=== PATIENT | female | born 1935 | race Caucasian/White ===

== ENCOUNTER 2017-07-20 17:07 | Inpatient (IN) ==
[2017-07-20 17:54] LABS: Basophils % 0.3 %; Eosinophils # 0.1 K/mcL (0.0-0.6); Hematocrit 44.8 % (35.3-44.9); Hemoglobin 14.9 g/dL (11.5-15.4); Immature Granulocytes % 0.4 % (0-4); Immature Platelets 4.3 % (1.1-6.1); Lymphocytes % 17.3 %; Mean Corpuscular HGB Conc 33.3 g/dL (31.6-35.5); Mean Corpuscular Hemoglobin 28.9 pg (28.0-33.3); Mean Corpuscular Volume 86.8 fL (83.0-100.0); Mean Platelet Volume 10.7 fL (9.4-12.4); Monocytes # 1.1 K/mcL (0.0-1.3); Monocytes % 9.2 %; Neutrophils # 8.3 K/mcL (1.6-8.9); Platelet Count 150 K/mcL (140-400); Red Blood Count 5.16 M/mcL (3.82-4.97); Red Cell Distribution Width 12.7 % (11.5-14.5); Segmented Neutrophils % 71.8 %
[2017-07-20 18:06] LABS: Calcium 10.8 mg/dL (8.6-10.8); Potassium 4.1 mEq/L (3.5-4.5)
[2017-07-20] MEDS ORDERED: Furosemide 40 MG/4 ML VIAL IVP ONE (19:05)
--- NOTE | 2017-07-20 19:24 | Emergency Department Note ---
Disposition Clinical Impression: Shortness of breath at rest Acute exacerbation of CHF (congestive heart failure) Qualifiers: Congestive heart failure type: unspecified congestive heart failure type Qualified Code(s): I50.9 - Heart failure, unspecified Disposition: Admitted As Inpatient Condition: Fair Time of Disposition: 20:48 SOB HPI - General Chief Complaint: ED Shortness of Breath/Dyspnea Stated Complaint: SOB Time Seen by Provider: 07/20/17 17:55 Source: patient, family Limitations: no limitations Nursing Notes Reviewed: Yes Vital Signs Reviewed: Yes - History of Present Illness Patient is an 81-year-old female with a past medical history of hypertension, diabetes, CHF, and AFib who presents with shortness of breath that has progressively worsening over 3 days. The patient states that her shortness of breath is worse with exertion but improves with rest. She denies being on any oxygen at home. She admits that she is currently on Xarelto for her Afib and HCTZ for her CHF. The patient states that she had a pneumonia 1 month ago and was treated with antibiotics. She states that her repeat chest x-ray 1 week ago showed that her pneumonia was improving per her primary care physician. The patient admits that she has a productive cough for approximately one month but denies any fever, hemoptysis, nausea and vomiting. The patient denies any headache, vision changes, chest pain, difficulty breathing, abdominal pain, constipation, diarrhea, blood in her stool, blood in her urine, difficulty urinating, dysuria, numbness and tingling, weaknesses, or any focal neurological deficits. - Related Data Home Medications Medication Instructions Recorded Confirmed ALPRAZolam [Xanax 0.5 MG Tablet] 0.5 mg PO BID PRN 07/24/16 07/20/17 Amlodipine Besylate [Amlodipine 2.5 mg PO BID 07/24/16 07/20/17 Besylate] Brimonidine 0.2% [Alphagan] 1 drop BOTH EYES BID 07/24/16 07/20/17 Calcium Carbonate [Calcium] 600 mg PO BID 07/24/16 07/20/17 Denosumab [Prolia (For Outpatient 60 mg SQ [id number] 07/24/16 07/20/17 Infusion)] Lisinopril [Zestril] 40 mg PO DAILY 07/24/16 07/20/17 Multivit-Min/FA/Lycopen/Lutein 1 each PO DAILY 07/24/16 07/20/17 [Adults 50+ Multivitamin Tablet] Omeprazole 20 mg PO DAILY PRN 07/24/16 07/20/17 Potassium Chloride [Klor-Con] 20 meq PO DAILY 07/24/16 07/20/17 Rivaroxaban [Xarelto] 20 mg PO QPM 07/24/16 07/20/17 hydroCHLOROthiazide 25 mg PO DAILY 07/24/16 07/20/17 [Hydrochlorothiazide] Diltiazem HCl [Diltiazem 12Hr ER] 120 mg PO BID 07/20/17 07/20/17 Dorzolamide/Timolol [Cosopt] 1 drop OP BID 07/20/17 07/20/17 Latanoprost [Xalatan] 1 drop OP HS 07/20/17 07/20/17 Promethazine/Phenyleph/Codeine 5 ml PO Q6H PRN 07/20/17 07/20/17 [Promethazine Vc-Codeine Syrup] Simvastatin [Zocor] 10 mg PO HS 07/20/17 07/20/17 Allergies Allergy/AdvReac Type Severity Reaction Status Date / Time aspartame AdvReac Migraine Verified 07/20/17 19:44 Review of Systems: Constitutional: No fever or weight changes. Vision: No blurred vision ENT: No rhinorrhea Respiratory: Progressive worsening of SOB for the past three days that is worse with exertion and improves with rest. Admits productive cough with yellow and clear sputum. Allergic: No allergies : No blood in urine GI: No blood in stool Hematologic: No bruising Dermatologic: No skin rash Musculoskeletal: No pain in the extremities Neuro: No numbness of the extremities All systems ED: reviewed and negative except as stated. Review of Systems: As Per HPI Past Medical History - Past Medical History Medical history: Reports: atrial fibrillation, cancer, diabetes, hyperlipidemia , hypertension Surgical history: Reports: pacemaker/AICD Psychiatric history: Reports: no psych history - Social History Smoking Status: Never smoker Smokeless Tobacco Status: No Alcohol use: Reports: none Drug use: Reports: none Physical Exam CONSTITUTIONAL: Alert and oriented X3, well-nourished, well appearing, in no apparent distress HEAD: Normocephalic; atraumatic. EYES: PERRL, no scleral icterus. NOSE: The nose is normal in appearance without rhinorrhea RESP: Rales heard on bilateral lobes posteriorly. Conversational dyspnea with use of accessory muscles; Oxygen saturation on exam is 96% on room air. no wheezes or ronchi CARD: Regular rhythm, without murmurs, rub or gallop ABD: Non-distended; non-tender, soft,without rigidity, rebound or guarding. No hepatomegaly. No splenomegaly. No ecchymosis, bruises, or bleeding. SKIN: Normal for age and race; warm and dry; no apparent lesions EXTREMITIES: Lower extremities has trace edema bilaterally. Pulses are 2 plus and equal times 4 extremities, no calf muscle pain. NEUROLOGICAL: Patient is alert and oriented times three. Sensory and motor functions are intact. Strength is 5/5 for flexion and extension in all 4 extremities - General Limitations: no limitations General appearance: alert, anxious Course Vital Signs Temperature 97.5 F L 07/20/17 17:08 Pulse Rate 83 07/20/17 17:08 Respiratory Rate 22 07/20/17 17:08 Blood Pressure 174/80 07/20/17 17:08 O2 Sat by Pulse Oximetry 97 07/20/17 17:08 Temperature 97.7 F 07/20/17 21:56 Pulse Rate 79 07/20/17 21:56 Respiratory Rate 19 07/20/17 21:56 Blood Pressure 154/69 07/20/17 21:56 O2 Sat by Pulse Oximetry 96 07/20/17 21:56 Oxygen Delivery Oxygen Delivery Room Air Shortness of Breath/Dyspnea - [facility] Narrative Medical decision making narrative: Vitals are reviewed and are exceptionally normal. Blood pressure is elevated. Patient is afebrile and is satting at 96% on room air. She is having conversational dyspnea and physical exam show mild rales on her lower lobes bilaterally. LAbs and imaging are order to further evaluate CHF exacerbation vs pneumonia. Mildly elevated BNP, CXR results, and clinical exam leads me to believe she has an acute exacerbation of CHF. Will give 40 mg Lasix IV. Plan to admit the patient for observation. - Lab Data Lab results reviewed: Yes I reviewed the patient's lab results. Result diagrams: 07/20/17 17:46 07/20/17 17:46 Lab Results 07/20/17 07/20/17 07/20/17 Range/Units 17:46 17:46 17:46 WBC 11.6 H (4.3-11.1) K/mcL RBC 5.16 H (3.82-4.97) M/mcL Hgb 14.9 (11.5-15.4) g/dL Hct 44.8 (35.3-44.9) % MCV 86.8 (83.0-100.0) fL MCH 28.9 (28.0-33.3) pg MCHC 33.3 (31.6-35.5) g/dL RDW 12.7 (11.5-14.5) % Plt Count 150 (140-400) K/mcL MPV 10.7 (9.4-12.4) fL Immature Gran % 0.4 (0-4) % Seg Neutrophils % 71.8 % Lymphocytes % 17.3 % Monocytes % 9.2 % Eosinophils % 1.0 % Basophils % 0.3 % Neutrophils # 8.3 (1.6-8.9) K/mcL Lymphocytes # 2.0 (0.6-4.6) K/mcL Monocytes # 1.1 (0.0-1.3) K/mcL Eosinophils # 0.1 (0.0-0.6) K/mcL Basophils # 0.0 (0.0-0.2) K/mcL Immature Plt Fraction 4.3 (1.1-6.1) % Sodium 137 (136-145) mEq/L Potassium 4.1 (3.5-4.5) mEq/L Chloride 102 (98-109) mEq/L Carbon Dioxide 24 (19-29) mEq/L BUN 25 H (7-20) mg/dL Creatinine 1.07 (0.57-1.11) mg/dL Est GFR ( Amer) 60 (> 60) Est GFR (Non-Af Amer) 49 L (> 60) BUN/Creatinine Ratio 23 (6-26) Glucose 154 H (70-99) mg/dL Calculated Osmolality 291 (280-300) Lactic Acid 1.5 (0.5-2.2) mmol/L Calcium 10.8 (8.6-10.8) mg/dL Troponin I (0-0.03) ng/mL B-Natriuretic Peptide (0-100) pg/mL 07/20/17 07/20/17 Range/Units 17:46 17:46 WBC (4.3-11.1) K/mcL RBC (3.82-4.97) M/mcL Hgb (11.5-15.4) g/dL Hct (35.3-44.9) % MCV (83.0-100.0) fL MCH (28.0-33.3) pg MCHC (31.6-35.5) g/dL RDW (11.5-14.5) % Plt Count (140-400) K/mcL MPV (9.4-12.4) fL Immature Gran % (0-4) % Seg Neutrophils % % Lymphocytes % % Monocytes % % Eosinophils % % Basophils % % Neutrophils # (1.6-8.9) K/mcL Lymphocytes # (0.6-4.6) K/mcL Monocytes # (0.0-1.3) K/mcL Eosinophils # (0.0-0.6) K/mcL Basophils # (0.0-0.2) K/mcL Immature Plt Fraction (1.1-6.1) % Sodium (136-145) mEq/L Potassium (3.5-4.5) mEq/L Chloride (98-109) mEq/L Carbon Dioxide (19-29) mEq/L BUN (7-20) mg/dL Creatinine (0.57-1.11) mg/dL Est GFR ( Amer) (> 60) Est GFR (Non-Af Amer) (> 60) BUN/Creatinine Ratio (6-26) Glucose (70-99) mg/dL Calculated Osmolality (280-300) Lactic Acid (0.5-2.2) mmol/L Calcium (8.6-10.8) mg/dL Troponin I 0.01 (0-0.03) ng/mL B-Natriuretic Peptide 121 H (0-100) pg/mL - Radiology Data Radiology results reviewed: Yes I reviewed the patient's radiology results. Chest X-Ray 07/20/17 17:13 IMPRESSION: Findings suggest congestive heart failure D/ / Alexandro Lauren MD / Alexandro Lauren MD Interpreting Provider: Alexandro Lauren MD - EKG Data EKG attestation: Yes I reviewed and interpreted this EKG. EKG results narrative: EKG shows electronic ventricle pacemaker with a rate of 80 beats per minute, QRS duration at 139, QT at 410, QTC at 445.No acute ischemic changes noted on the EKG today. No significant changes on EKG compared to the old EKG dated on . Attestation Statement - Attestation Attestation: I examined this patient and my medical decision-making was reviewed with the Resident Physician. I agree with the documented findings, disposition and treatment plan as described except to the extent set forth below. Patient with classic history for gradually worsening heart failure. Chest x- ray looks similar to previous, slightly worse. BNP near baseline. Agree with Dr. Mehta's plan for diuresis and admission.
[2017-07-20] MEDS ORDERED: Naloxone 0.4 MG/ML INJ IVP PRN (21:59)
--- NOTE | 2017-07-20 22:11 | Internal Med History&Physical ---
<Fe Hernández - Last Filed: 07/20/17 23:23> Date of Encounter: 07/20/17 Time of Encounter: 22:11 Assessment and Plan (1) Acute exacerbation of CHF (congestive heart failure) Current visit: Yes Status: Acute 1 past echo 03/29/16 EF 45% has been on HCTZ, 2-3 days of SOB weakness Xray suggestive of CHF Will give lasix 20 mg IVP daily 2 daily weight I/O 3 fluid restriction 1500 ml 4 Patient has had a cough over the past few days with increased phlegm production- treated for pneumonia 1 month ago-we will obtain CT chest pending results -we will initiate on azithromycin and Rocephin- Qualifiers: Congestive heart failure type: unspecified congestive heart failure type Qualified Code(s): I50.9 - Heart failure, unspecified (2) Diabetes mellitus Current visit: No Status: Chronic Accu-Cheks before meals at bedtime for sinus scale insulin Diabetic diet Qualifiers: Diabetes mellitus type: type 2 Diabetes mellitus complication status: without complication 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 She is on Xarelto which we will hold for now for report of Qualifiers: Atrial fibrillation type: chronic Qualified Code(s): I48.2 - Chronic atrial fibrillation (5) Hemoptysis Current visit: Yes Status: Acute Reports episodes of hemoptysis over the past 2 days. Patient did have an episode of a quarter size unchanged sputum in the ER. She is on Cymbalta which we will hold for now. Monitor- We will obtain CT chest (6) DVT prophylaxis Current visit: No Status: Acute Patient was on Cymbalta which we will hold for now due to hemoptysis place SCDs Internal Medicine - H&P: HPI Chief complaint: dyspnea Admitted From: Emergency Dept Plans for Post Hospital Care: Home History of present illness: Ms. Avina is a 81 year old female past history of hypertension diabetes to chest A. fib pacemaker placement. Patient has been smoking increasing shortness of breath over the past 3 days she has been experiencing weakness shortness of breath upon exertion and improves with rest. She is not on any oxygen therapy at home and does not use any bronchodilators. She did have pneumonia approximately 1 month ago was treated with antibiotics and actually had improved up until approximately a few days ago. She denies any fevers chills nausea vomiting chest pain or abdominal pain. She has had a productive cough with blood-tinged sputum. The daughter states that her SPO2 has been ranging around 9394% at rest and drops down into the upper 80s on exertion. She presented to the ER with the above complaints. Not work in the ER was unremarkable BNP was 121 chest x-ray suggestive of CHF She did have approximately quarter size bloodstained phlegm while in the ER. She was given 40 mg IV Lasix and admitted for further evaluation. Presently the patient does not appear to be in respiratory distress denies any chest pain she does have some fine crackles in her bases bilaterally she is hemodynamically stable at this time. I did review this case with Dr. Craven who agrees with plan. Past Med Surg Social Fam HX - Past Medical History Medical history: atrial fibrillation, cancer, diabetes, hyperlipidemia, hypertension Psychiatric history: no psych history - Past Surgical History Surgical History: pacemaker/AICD - Social History Smoking Status: Never smoker Smokeless Tobacco Status: No Alcohol use: none Drug use: none - Family History Father Living Status: Age at : 29 Cause of : Brain tumor Mother Living Status: Age at : 72 Cause of : Stroke, heart disease Internal Medicine - H&P: Meds ALPRAZolam [Xanax 0.5 MG Tablet] 0.5 mg PO BID PRN 07/24/16 [History] Amlodipine Besylate [Amlodipine Besylate] 2.5 mg PO BID 07/24/16 [History] Brimonidine 0.2% [Alphagan] 1 drop BOTH EYES BID 07/24/16 [History] Calcium Carbonate [Calcium] 600 mg PO BID 07/24/16 [History] Denosumab [Prolia (For Outpatient Infusion)] 60 mg SQ [id number] 07/24/16 [History ] Lisinopril [Zestril] 40 mg PO DAILY 07/24/16 [History] Multivit-Min/FA/Lycopen/Lutein [Adults 50+ Multivitamin Tablet] 1 each PO DAILY 07/24/16 [History] Omeprazole 20 mg PO DAILY PRN 07/24/16 [History] Potassium Chloride [Klor-Con] 20 meq PO DAILY 07/24/16 [History] Rivaroxaban [Xarelto] 20 mg PO QPM 07/24/16 [History] hydroCHLOROthiazide [Hydrochlorothiazide] 25 mg PO DAILY 07/24/16 [History] Diltiazem HCl [Diltiazem 12Hr ER] 120 mg PO BID 07/20/17 [History] Dorzolamide/Timolol [Cosopt] 1 drop OP BID 07/20/17 [History] Latanoprost [Xalatan] 1 drop OP HS 07/20/17 [History] Promethazine/Phenyleph/Codeine [Promethazine Vc-Codeine Syrup] 5 ml PO Q6H PRN 07/20/17 [History] Simvastatin [Zocor] 10 mg PO HS 07/20/17 [History] 3 Allergy/AdvReac Type Severity Reaction Status Date / Time aspartame AdvReac Migraine Verified 07/20/17 19:44 All Systems PM: A 10-system review of systems was performed and is negative for pertinent findings except as documented above in the HPI. - Constitutional Constitutional: no chills, no fever(s), no night sweats - EENT Eyes: no change in vision, no discharge, no pain, no photophobia Nose, mouth and throat: no dysphagia, no nasal discharge, no neck pain, no sore throat - Cardiovascular Cardiovascular ROS IM: dyspnea on exertion, no chest pain, no diaphoresis, no dyspnea, no lightheadedness, no palpitations, no syncope - Respiratory Respiratory: cough, dyspnea on exertion, change in phlegm color - Gastrointestinal Gastrointestinal: no abdominal pain, no diarrhea, no hematemesis, no hematochezia, no melena, no nausea, no vomiting - Genitourinary Genitourinary: no change in urinary stream, no dysuria, no flank pain, no hematuria - Musculoskeletal Musculoskeletal ROS IM: no numbness, no tingling - Integumentary Integumentary IM: no rash, no unusual bruising - Neurological Neurological ROS: no confusion, no convulsions, no focal weakness, no numbness, no tingling, no tremor(s) - Hematologic/Lymphatic Hematologic/Lymphatic: no easy bruising - Constitutional Vitals: Temp Pulse Resp BP Pulse Ox 97.7 F 79 19 154/69 96 07/20/17 21:56 07/20/17 21:56 07/20/17 21:56 07/20/17 21:56 07/20/17 21:56 General appearance: Present: A&O X 3, answers questions appropriately - Head Head exam: Present: atraumatic, normocephalic - Eye Eye exam: Present: PERRL, conjuntiva pink, sclera anicteric Pupils: Present: PERRL - Neck Neck exam general surgery: Present: supple, trachea midline. Absent: lymphadenopathy - Respiratory Respiratory exam: Present: rales. Absent: accessory muscle use, rhonchi, wheezes - Cardiovascular Cardiovascular exam: Present: RRR, +S1, +S2. Absent: diastolic murmur, gallop, rubs, systolic murmur - GI/Abdominal GI/Abdominal exam: Present: normal bowel sounds, soft, no peritoneal signs. Absent: distended, tenderness - Extremities Exam Extremities exam: Present: warm, radial pulses palpable and symmetrical. Absent : calf tenderness, cyanotic, pedal edema - Neurological Exam Neurological exam: Present: CN II-XII intact, oriented X3, no focal deficits. Absent: pronater drift, facial droop, speech deficit Internal Med - H&P Results - Labs CBC & Chem 7: 07/20/17 17:46 07/20/17 17:46 - EKG Data Prior EKG available for review: yes When compared to previous EKG: there is no significant change EKG comments: 07/20/17 22:56 AV paced - Diagnostic Studies Other Images Additional comments: Chest X-Ray 07/20/17 17:13 IMPRESSION: Findings suggest congestive heart failure D/ / Alexandro Lauren MD / Alexandro Lauren MD Interpreting Provider: Alexandro Lauren MD <Heriberto Craven - Last Filed: 07/21/17 02:15> Date of Encounter: 10/18/17 Internal Medicine - H&P: HPI History of present illness: Ms. Avina is a 81 year old female All Systems PM: A 10-system review of systems was performed and is negative for pertinent findings except as documented above in the HPI. - Constitutional Vitals: Temp Pulse Resp BP Pulse Ox 97.5 F L 82 19 168/76 98 07/21/17 01:27 07/21/17 01:27 07/21/17 01:27 07/21/17 01:27 07/21/17 01:27 Internal Med - H&P Results - Labs CBC & Chem 7: 07/20/17 17:46 07/20/17 17:46 - Attending Attestation I have seen and examined the patient independently. 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 Agree with the documentation except below: Patient has history of pneumonia, not improving on outpatient treatment. Presented with shortness of breath and hemoptysis. CT scan of chest shows pneumonia. Will place patient on azithromycin and Rocephin for pneumonia. Hold xarelto now because of hemoptysis. Low risk of PE because pneumonia and the fact the patient is on xarelto for A Fib can explain the hemoptysis. We will check d-dimer in a.m. If positive, probably need to consider VQ scan. No contrast CT because patient just received Lasix IV, concern for kidney injury.
[2017-07-20] MEDS ORDERED: *HR* Rivaroxaban 10 MG TABLET PO SCH (22:15)
[2017-07-20] MEDS ORDERED: D5% in Water 1,000 ML IVC PRN (22:58)
[2017-07-20] MEDS ORDERED: *HR* Dextrose 50 % in Water (Syg) 50 ML SYRINGE IVP PRN (22:58)
[2017-07-20] MEDS ORDERED: Dextrose Gel 15 GM PO PRN ×2 (22:58)
[2017-07-21] MEDS: Diltiazem SR (12hr) 60 MG CAPSULE PO SCH ×3 (00:24→22:08)
[2017-07-21] MEDS: Azithromycin 500 MG in D5% in Water 250 ML IVPB SCH (01:39)
[2017-07-21 04:55] LABS: Basophils % 0.2 %; Eosinophils # 0.1 K/mcL (0.0-0.6); Eosinophils % 0.6 %; Hematocrit 41.7 % (35.3-44.9); Hemoglobin 14.1 g/dL (11.5-15.4); Immature Granulocytes % 0.3 % (0-4); Lymphocytes # 2.4 K/mcL (0.6-4.6); Mean Corpuscular HGB Conc 33.8 g/dL (31.6-35.5); Mean Corpuscular Hemoglobin 28.7 pg (28.0-33.3); Mean Corpuscular Volume 84.8 fL (83.0-100.0); Mean Platelet Volume 10.6 fL (9.4-12.4); Monocytes # 1.4 K/mcL (0.0-1.3); Monocytes % 11.6 %; Neutrophils # 8.2 K/mcL (1.6-8.9); Platelet Count 142 K/mcL (140-400); Red Blood Count 4.92 M/mcL (3.82-4.97); Red Cell Distribution Width 12.8 % (11.5-14.5); Segmented Neutrophils % 67.3 %
[2017-07-21 05:13] LABS: BUN/Creatinine Ratio 26 (6-26); Blood Urea Nitrogen 22 mg/dL (7-20); Carbon Dioxide 25 mEq/L (19-29); Chloride 100 mEq/L (98-109); Glucose 129 mg/dL (70-99); Magnesium 1.7 mg/dL (1.6-2.6); Osmolality,Calculated 289 (280-300); Potassium 3.1 mEq/L (3.5-4.5); Sodium 137 mEq/L (136-145); eGFR For African Americans > 60 (> 60); eGFR For Non-African Americans > 60 (> 60)
[2017-07-21] MEDS: Lisinopril 20 MG TABLET PO SCH (08:43)
[2017-07-21] MEDS: Multivit/Ca/Min/Fe/FA 1 TAB TABLET PO SCH (08:44)
[2017-07-21] MEDS: Dorzolamide/Timolol OPTH 10 ML BOTTLE RIGHT EYE SCH ×2 (08:47→21:57)
[2017-07-21] MEDS: Insulin LISPRO 300 UNITS/3 ML VIAL SQ SCH ×4 (08:58→22:08)
[2017-07-21] MEDS ORDERED: amLODIPine 5 MG TABLET PO SCH (09:00)
[2017-07-21] MEDS ORDERED: Furosemide 20 MG/2 ML VIAL IVP SCH (09:00)
--- NOTE | 2017-07-21 10:54 | Internal Med Progress Note ---
<Alexandro Vences - Last Filed: 07/21/17 16:55> Date of Encounter: 07/21/17 Time of Encounter: 09:15 - Assessment and plan (1) Pleural effusion, bilateral Current Visit: Yes Status: Acute Assessment and plan: Bilateral pleural effusions secondary to CHF vs pneumonia vs unknown source Moderate right and stable left pleural effusion on CT and CTA IR consulted for thoracentesis, obtained 800 mL hemorrhagic fluid Pleural fluid sent to pathology for analysis and cytology Chest x-ray demonstrates no postthoracentesis pneumothorax (2) Acute exacerbation of CHF (congestive heart failure) Current Visit: Yes Status: Acute Assessment and plan: Congestive heart failure with preserved ejection fraction, chronic Echocardiogram demonstrates LVEF 60%, indeterminate diastolic dysfunction. Previous echocardiogram 03/19 demonstrated ejection fraction 45% The patient was started on fluid restriction diet, strict I's and O's The patient is on Jaden, statin. We will start a beta eladia. Hold ASA now due to hemoptysis and hemorrhagic pleural effusion Qualifiers: Congestive heart failure type: diastolic Qualified Code(s): I50.33 - Acute on chronic diastolic (congestive) heart failure (3) Shortness of breath at rest Current Visit: Yes Status: Acute Assessment and plan: Dyspnea at rest, likely secondary to pleural effusions, CHF, pneumonia CTA demonstrates no pleural effusion despite d-dimer [address] and CTA in the left lower lobe as well as the right upper lobe Patient started on azithromycin and ceftriaxone, serum blood cultures pending Patient underwent thoracentesis with drainage of 800 mL fluid (4) Hemoptysis Current Visit: Yes Status: Acute Assessment and plan: Hemoptysis reported this morning Patient has experienced hemoptysis before, daughter mentions that it has been several days CTA is negative for acute PE, demonstrates pneumonia with pleural effusion Continue to monitor (5) Diabetes mellitus Current Visit: No Status: Chronic Qualifiers: Diabetes mellitus type: type 2 Diabetes mellitus complication status: without complication Diabetes mellitus long-term insulin use: without long-term use Qualified Code(s): E11.9 - Type 2 diabetes mellitus without complications (6) Thoracic aortic aneurysm, without rupture Current Visit: Yes Status: Acute Assessment and plan: CTA demonstrated a 4.0 x 4.0 cm aneurysm of the thoracic ascending aorta The patient has no recollection of being diagnosed with this aneurysm previously At this time we will initiate strict control of blood pressure Increase amlodipine to 5 mg twice a day, start metoprolol 12.5 mg twice a day (7) Hypertension Current Visit: No Status: Chronic Assessment and plan: Hypertension is moderately managed on current medications CTA demonstrated a 4.0 x 4.0 cm aneurysm of the thoracic ascending aorta The patient has no recollection of being diagnosed with this aneurysm previously At this time we will initiate strict control of blood pressure Increase amlodipine to 5 mg twice a day, start metoprolol 12.5 mg twice a day Qualifiers: Hypertension type: essential hypertension Qualified Code(s): I10 - Essential (primary) hypertension (8) A-fib Current Visit: No Status: Chronic Assessment and plan: Paroxysmal atrial fibrillation, chronic Rate controlled on current medications and AV paced The previously placed on xarelto, which was held secondary to hemoptysis on admission Qualifiers: Atrial fibrillation type: paroxysmal Qualified Code(s): I48.0 - Paroxysmal atrial fibrillation - Subjective Interval history: The patient is resting comfortably in bed at the time of examination, she is still complaining of moderate shortness of breath and pain in her chest with breathing. She is accompanied by her daughter, who says that she appears about the same as she did previously. - Constitutional Vitals: Temp Pulse Resp BP Pulse Ox 97.5 F L 86 16 167/71 95 07/21/17 08:22 07/21/17 08:22 07/21/17 08:22 07/21/17 08:22 07/21/17 08:22 General appearance: Present: mild distress, A&O X 3, underweight, answers questions appropriately - Head Head exam: Present: atraumatic, normocephalic - Eye Eye exam: Present: PERRL, conjuntiva pink, sclera anicteric Pupils: Present: PERRL - Neck Neck exam general surgery: Present: supple, trachea midline. Absent: lymphadenopathy - Respiratory Respiratory exam: Present: decreased breath sounds, rales. Absent: accessory muscle use, rhonchi, wheezes Additional comments: Markedly decreased breath sounds on the right, diffuse fine crackles can be heard - Cardiovascular Cardiovascular exam: Present: RRR, +S1, +S2. Absent: diastolic murmur, gallop, rubs, systolic murmur - GI/Abdominal GI/Abdominal exam: Present: normal bowel sounds, soft, no peritoneal signs. Absent: distended, tenderness - Extremities Exam Extremities exam: Present: warm, radial pulses palpable and symmetrical. Absent : calf tenderness, cyanotic, pedal edema - Neurological Exam Neurological exam: Present: CN II-XII intact, oriented X3, no focal deficits. Absent: pronater drift, facial droop, speech deficit - Skin Skin exam: Present: dry, intact Internal Medicine: Result - Labs CBC & Chem 7: 07/21/17 04:46 07/21/17 04:46 Labs: Short CBC 07/21/17 Range/Units 04:46 WBC 12.2 H (4.3-11.1) K/mcL Hgb 14.1 (11.5-15.4) g/dL Hct 41.7 (35.3-44.9) % Plt Count 142 (140-400) K/mcL Neutrophils # 8.2 (1.6-8.9) K/mcL BMP 07/21/17 04:46 Sodium 137 Potassium 3.1 L D Chloride 100 Carbon Dioxide 25 BUN 22 H Creatinine 0.85 Glucose 129 H Calcium 10.0 Cardiac Enzymes 07/21/17 Range/Units 04:46 Troponin I 0.02 (0-0.03) ng/mL - ABG Interpretation ABG results: PT/INR, D-dimer D-Dimer 3568 ng/mLFEU (0-500) H 07/21/17 04:46 - Impressions Impressions Chest CTA 07/21/17 08:27 IMPRESSION: 1. No acute pulmonary artery embolism. 2. Cardiomegaly with ascending aortic aneurysm 4 cm. 3. Indeterminate mediastinal and bilateral hilar lymphadenopathy may be reactive in nature although neoplastic origin is not excluded. 4. Moderate bilateral pleural effusions with dense left lower lobe consolidation and air bronchograms may reflect pneumonia in the correct clinical setting. 5. Suspected vascular congestion pattern without florid pulmonary edema. 6. Stable ground-glass density perihilar region on the right and lesser extent left representing nonspecific inflammation or infection. D/ / 07/21/2017 09:38:12 Ranjit Hernandez MD / lgray Interpreting Provider: Ranjit Hernandez MD Consult Discharge Plan - Plan Referrals: Saurabh Lane MD [Primary Care Provider] - <Sanjeev Correa - Last Filed: 07/21/17 18:31> Date of Encounter: 07/21/17 - Assessment and plan (1) Pleural effusion, bilateral Current Visit: Yes Status: Acute (2) Acute exacerbation of CHF (congestive heart failure) Current Visit: Yes Status: Acute Qualifiers: Congestive heart failure type: diastolic Qualified Code(s): I50.33 - Acute on chronic diastolic (congestive) heart failure (3) Pneumonia Current Visit: Yes Status: Acute Qualifiers: Pneumonia type: due to unspecified organism Laterality: bilateral Lung location: unspecified part of lung Qualified Code(s): J18.9 - Pneumonia, unspecified organism (4) A-fib Current Visit: No Status: Chronic Qualifiers: Atrial fibrillation type: paroxysmal Qualified Code(s): I48.0 - Paroxysmal atrial fibrillation (5) Diabetes mellitus Current Visit: No Status: Chronic Qualifiers: Diabetes mellitus type: type 2 Diabetes mellitus complication status: without complication Diabetes mellitus intermediate manager insulin use: without intermediate manager use Qualified Code(s): E11.9 - Type 2 diabetes mellitus without complications (6) Hypertension Current Visit: No Status: Chronic Qualifiers: Hypertension type: essential hypertension Qualified Code(s): I10 - Essential (primary) hypertension (7) Thoracic aortic aneurysm, without rupture Current Visit: Yes Status: Acute - Constitutional Vitals: Temp Pulse Resp BP Pulse Ox 97.5 F L 79 16 126/67 95 07/21/17 15:34 07/21/17 15:34 07/21/17 15:34 07/21/17 15:34 07/21/17 15:34 Internal Medicine: Result - Labs CBC & Chem 7: 07/21/17 04:46 07/21/17 04:46 Labs: Short CBC 07/21/17 Range/Units 04:46 WBC 12.2 H (4.3-11.1) K/mcL Hgb 14.1 (11.5-15.4) g/dL Hct 41.7 (35.3-44.9) % Plt Count 142 (140-400) K/mcL Neutrophils # 8.2 (1.6-8.9) K/mcL BMP 07/21/17 04:46 Sodium 137 Potassium 3.1 L D Chloride 100 Carbon Dioxide 25 BUN 22 H Creatinine 0.85 Glucose 129 H Calcium 10.0 Cardiac Enzymes 07/21/17 Range/Units 04:46 Troponin I 0.02 (0-0.03) ng/mL - ABG Interpretation ABG results: PT/INR, D-dimer D-Dimer 3568 ng/mLFEU (0-500) H 07/21/17 04:46 - Impressions Impressions Thoracentesis Ultrasound 07/21/17 00:00 IMPRESSION: Successful ultrasound guided thoracentesis. D/ / Wojciech Nelson MD / Wojciech Nelson MD Interpreting Provider: Wojciech Nelson MD Echocardiogram 07/21/17 07:00 Impressions: LVEF 60%. Indeterminate diastolic function. Normal right ventricular structure and function. Mild tricuspid regurgitation. Moderate pulmonary hypertension. A pleural effusion is present. Left Ventricular Wall Motion: Rest Echo Findings All wall segments showed normal motion. Findings: Study Quality * Technically adequate exam. ECG Findings * Atrial fibrillation/flutter. Left Ventricle * LVEF 60%. * Indeterminate diastolic function. * Normal LV wall thickness by dimensions. Grossly, there appears to be increased LV wall thickness. * Normal LV size. Right Ventricle * Normal right ventricular structure and function. Left Atrium * Severely dilated left atrium. Right Atrium * Moderately dilated right atrium. Aortic Valve * No aortic regurgitation. * Aortic valve not well visualized. * No aortic stenosis. Mitral Valve * No mitral regurgitation. * No mitral stenosis. * Mild mitral annular calcification * Mildly calcified mitral valve leaflets. Tricuspid Valve * Tricuspid valve not well visualized. * Mild tricuspid regurgitation. * Estimated RA pressure is 3 mmHg. * Estimated RVSP is 49 mmHg. * Moderate pulmonary hypertension. Pulmonic Valve * Pulmonic valve is not well visualized. * No pulmonic stenosis. * Trace pulmonic regurgitation. Pulmonary Artery * Pulmonary artery not well visualized. Aorta * Normally sized aortic root. * Ascending aorta not fully visualized. Pericardium * There is no pericardial effusion present. Device lead * A device lead was visualized in the right atrium and right ventricle. Pleural Effusion * A pleural effusion is present. Interatrial Septum * No evidence of PFO by color Doppler. IVC * Normal IVC dimensions and inspiratory collapse. Chest CTA 07/21/17 08:27 IMPRESSION: 1. No acute pulmonary artery embolism. 2. Cardiomegaly with ascending aortic aneurysm 4 cm. 3. Indeterminate mediastinal and bilateral hilar lymphadenopathy may be reactive in nature although neoplastic origin is not excluded. 4. Moderate bilateral pleural effusions with dense left lower lobe consolidation and air bronchograms may reflect pneumonia in the correct clinical setting. 5. Suspected vascular congestion pattern without florid pulmonary edema. 6. Stable ground-glass density perihilar region on the right and lesser extent left representing nonspecific inflammation or infection. D/ / 07/21/2017 09:38:12 Ranjit Hernandez MD / de Interpreting Provider: Ranjit Hernandez MD Chest X-Ray 07/21/17 13:47 IMPRESSION: 1. Intervally decreased left pleural effusion status post thoracentesis. No pneumothorax. 2. Findings in keeping with congestive heart failure. 3. Mild bibasilar atelectasis with superimposed infiltrates not excluded. D/ / Israel Villegas MD / Israel Villegas MD Interpreting Provider: Israel Villegas MD - Attending Attestation I examined this patient and my medical decision-making was reviewed with the Resident Physician on 07/21/17. I agree with the documented findings, disposition and treatment plan as described except to the extent set forth below. Ms Avina is currently admitted for acute pneumonia and possible CHF. She has bilateral pleural effusions and had thoracentesis today. She remains moderate to high risk due to potential for worsening respiratory status. Ms. Avina is feeling dyspneic still. No fever or chills. Still with cough. No chest pain. No GI issues. Exam Alert. Mild distress due to dyspnea Mucus membranes dry Heart not tachy Lungs diminished Abd soft I/P 1. Pneumonia 2. Acute exac chronic diastolic CHF. 3. HTN 4. Chronic a fib Further diagnoses and plan as above.
[2017-07-21] MEDS: ALPRAZolam 0.5 MG TABLET PO PRN ×2 (13:33→22:24)
[2017-07-21 15:00] LABS: LDH,Pleural Fluid 1147 Units/L (No Ref Range); Total Protein,Pleural Fluid 4.2 g/dL (No Ref Range)
[2017-07-21 15:20] LABS: RBC,Pleural Fluid 0.255 M/mcL
[2017-07-21 15:30] LABS: Appearance of Pleural Fl Bloody (Clear)
[2017-07-21] MEDS: Acetaminophen 325 MG TABLET PO PRN (16:06)
[2017-07-21 17:04] LABS: Total Protein 7.2 g/dL (6.0-8.3)
[2017-07-21 17:05] LABS: Lactate Dehydrogenase 535 Units/L (159-327)
[2017-07-21] MEDS: Latanoprost 2.5 ML BOTTLE RIGHT EYE SCH (21:57)
[2017-07-21] MEDS: amLODIPine 5 MG TABLET PO SCH (22:07)
[2017-07-22] MEDS: Azithromycin 500 MG in D5% in Water 250 ML IVPB SCH (00:56)
[2017-07-22 04:58] LABS: Basophils % 0.2 %; Eosinophils # 0.1 K/mcL (0.0-0.6); Eosinophils % 1.2 %; Hemoglobin 13.3 g/dL (11.5-15.4); Immature Granulocytes % 0.5 % (0-4); Lymphocytes # 1.8 K/mcL (0.6-4.6); Lymphocytes % 16.2 %; Mean Corpuscular HGB Conc 34.1 g/dL (31.6-35.5); Mean Corpuscular Hemoglobin 29.2 pg (28.0-33.3); Mean Corpuscular Volume 85.5 fL (83.0-100.0); Mean Platelet Volume 10.8 fL (9.4-12.4); Monocytes # 1.6 K/mcL (0.0-1.3); Monocytes % 14.6 %; Neutrophils # 7.4 K/mcL (1.6-8.9); Platelet Count 154 K/mcL (140-400); Red Blood Count 4.56 M/mcL (3.82-4.97); Red Cell Distribution Width 13.1 % (11.5-14.5); Segmented Neutrophils % 67.3 %
[2017-07-22 05:15] LABS: Alanine Aminotransferase 12 Units/L (0-55); Albumin 3.1 g/dL (3.5-5.0); Albumin/Globulin Ratio 0.9 (1.1-2.2); Alkaline Phosphatase 44 Units/L (38-126); Aspartate Amino Transferase 27 Units/L (5-34); BUN/Creatinine Ratio 32 (6-26); Bilirubin,Total 0.2 mg/dL (0.2-1.2); Blood Urea Nitrogen 27 mg/dL (7-20); Calcium 9.3 mg/dL (8.6-10.8); Carbon Dioxide 23 mEq/L (19-29); Chloride 101 mEq/L (98-109); Globulin 3.4 g/dL (2.4-3.5); Glucose 117 mg/dL (70-99); Osmolality,Calculated 282 (280-300); Potassium 3.7 mEq/L (3.5-4.5); Sodium 133 mEq/L (136-145); Total Protein 6.5 g/dL (6.0-8.3); eGFR For African Americans > 60 (> 60); eGFR For Non-African Americans > 60 (> 60)
[2017-07-22] MEDS ORDERED: amLODIPine 5 MG TABLET PO SCH (09:00)
[2017-07-22] MEDS: Multivit/Ca/Min/Fe/FA 1 TAB TABLET PO SCH (09:18)
[2017-07-22] MEDS: amLODIPine 5 MG TABLET PO SCH ×2 (09:18→21:34)
[2017-07-22] MEDS: Diltiazem SR (12hr) 60 MG CAPSULE PO SCH ×2 (09:18→21:35)
[2017-07-22] MEDS: Lisinopril 20 MG TABLET PO SCH (09:20)
[2017-07-22] MEDS: Insulin LISPRO 300 UNITS/3 ML VIAL SQ SCH ×4 (09:20→21:45)
[2017-07-22] MEDS: Dorzolamide/Timolol OPTH 10 ML BOTTLE RIGHT EYE SCH ×2 (09:21→21:38)
--- NOTE | 2017-07-22 09:50 | Internal Med Progress Note ---
<Alexandro Vences - Last Filed: 07/22/17 14:04> Date of Encounter: 07/22/17 Time of Encounter: 09:00 - Assessment and plan (1) Pleural effusion, bilateral Current Visit: Yes Status: Acute Assessment and plan: Bilateral pleural effusions secondary to CHF vs pneumonia vs unknown source Patient underwent thoracentesis to the right side yesterday without complication Exudative Fluids significant for 80% "other" cells, Cytology currently pending. Suspicious for malignancy Patient clinically appears euvolemic, avoid Lasix right now (2) Acute exacerbation of CHF (congestive heart failure) Current Visit: Yes Status: Acute Assessment and plan: Congestive heart failure with preserved ejection fraction, chronic Echocardiogram demonstrates LVEF 60%, indeterminate diastolic dysfunction. Previous echocardiogram 03/19 demonstrated ejection fraction 45% Patient appears euvolemic, maintain fluid restriction but hold lasix Continue Statin, BB, Jaden. Hold ASA due to hemorrhagic pleural fluid Qualifiers: Congestive heart failure type: diastolic Qualified Code(s): I50.33 - Acute on chronic diastolic (congestive) heart failure (3) Shortness of breath at rest Current Visit: Yes Status: Acute Assessment and plan: Dyspnea at rest, likely secondary to pleural effusions, CHF, pneumonia Patient started on azithromycin and ceftriaxone, serum blood cultures pending Patient underwent thoracentesis with drainage of 800 mL fluid (4) Hemoptysis Current Visit: Yes Status: Acute Assessment and plan: Hemoptysis reported this morning, otherwise decreased cough Repeat CXR post thoracentesis shows no acute changes Continue to monitor (5) Diabetes mellitus Current Visit: No Status: Chronic Assessment and plan: DM2 in good control at this time Qualifiers: Diabetes mellitus type: type 2 Diabetes mellitus complication status: without complication Diabetes mellitus exterminator insulin use: without fci use Qualified Code(s): E11.9 - Type 2 diabetes mellitus without complications (6) Thoracic aortic aneurysm, without rupture Current Visit: Yes Status: Acute Assessment and plan: CTA demonstrated a 4.0 x 4.0 cm aneurysm of the thoracic ascending aorta The patient has no recollection of being diagnosed with this aneurysm previously At this time we will initiate strict control of blood pressure Increase amlodipine to 5 mg twice a day, start metoprolol 12.5 mg twice a day (7) Hypertension Current Visit: No Status: Chronic Assessment and plan: Hypertension is moderately managed on current medications CTA demonstrated a 4.0 x 4.0 cm aneurysm of the thoracic ascending aorta At this time we will initiate strict control of blood pressure Increase amlodipine to 5 mg twice a day, start metoprolol 12.5 mg twice a day Qualifiers: Hypertension type: essential hypertension Qualified Code(s): I10 - Essential (primary) hypertension (8) A-fib Current Visit: No Status: Chronic Assessment and plan: Paroxysmal atrial fibrillation, chronic Rate controlled on current medications and AV paced The previously placed on xarelto, which was held secondary to hemoptysis on admission Qualifiers: Atrial fibrillation type: paroxysmal Qualified Code(s): I48.0 - Paroxysmal atrial fibrillation (9) DVT prophylaxis Current Visit: No Status: Acute Assessment and plan: Xarelto held for hemoptysis SCDs - Subjective Interval history: The patient is resting comfortably in bed at the time of examination.. She is accompanied by her daughter. The patient says that she is feeling much better than she did previously with significantly decreased dyspnea. She is still complaining of occasional hemoptysis especially this morning, however she says that her cough has subsided pretty substantially otherwise. - Constitutional Vitals: Temp Pulse Resp BP Pulse Ox 97.6 F 81 18 140/70 95 07/22/17 07:36 07/22/17 07:36 07/22/17 07:36 07/22/17 07:36 07/22/17 07:36 General appearance: Present: mild distress, A&O X 3, underweight, answers questions appropriately Exam: - Head Head exam: Present: atraumatic, normocephalic - Eye Eye exam: Present: PERRL, conjuntiva pink, sclera anicteric Pupils: Present: PERRL - Neck Neck exam general surgery: Present: supple, trachea midline. Absent: lymphadenopathy - Respiratory Respiratory exam: Present: decreased breath sounds, rales. Absent: accessory muscle use, rhonchi, wheezes Additional comments: Markedly decreased breath sounds on the right, diffuse fine crackles can be heard - Cardiovascular Cardiovascular exam: Present: RRR, +S1, +S2. Absent: diastolic murmur, gallop, rubs, systolic murmur - GI/Abdominal GI/Abdominal exam: Present: normal bowel sounds, soft, no peritoneal signs. Absent: distended, tenderness - Extremities Exam Extremities exam: Present: warm, radial pulses palpable and symmetrical. Absent : calf tenderness, cyanotic, pedal edema - Neurological Exam Neurological exam: Present: CN II-XII intact, oriented X3, no focal deficits. Absent: pronater drift, facial droop, speech deficit - Skin Skin exam: Present: dry, intact Internal Medicine: Result - Labs CBC & Chem 7: 07/22/17 04:39 07/22/17 04:39 Labs: Short CBC 07/22/17 Range/Units 04:39 WBC 11.0 (4.3-11.1) K/mcL Hgb 13.3 (11.5-15.4) g/dL Hct 39.0 (35.3-44.9) % Plt Count 154 (140-400) K/mcL Neutrophils # 7.4 (1.6-8.9) K/mcL BMP 07/21/17 07/22/17 04:46 04:39 Sodium 137 133 L Potassium 3.1 L D 3.7 Chloride 100 101 Carbon Dioxide 25 23 BUN 22 H 27 H Creatinine 0.85 0.85 Glucose 129 H 117 H Calcium 10.0 9.3 Liver Function 07/22/17 Range/Units 04:39 Total Bilirubin 0.2 (0.2-1.2) mg/dL AST 27 (5-34) Units/L ALT 12 (0-55) Units/L Alkaline Phosphatase 44 (38-126) Units/L Albumin 3.1 L (3.5-5.0) g/dL - ABG Interpretation ABG results: PT/INR, D-dimer D-Dimer 3568 ng/mLFEU (0-500) H 07/21/17 04:46 - Impressions Impressions Thoracentesis Ultrasound 07/21/17 00:00 IMPRESSION: Successful ultrasound guided thoracentesis. D/ / Wojciech Nelson MD / Wojciech Nelson MD Interpreting Provider: Wojciech Nelson MD Echocardiogram 07/21/17 07:00 Impressions: LVEF 60%. Indeterminate diastolic function. Normal right ventricular structure and function. Mild tricuspid regurgitation. Moderate pulmonary hypertension. A pleural effusion is present. Left Ventricular Wall Motion: Rest Echo Findings All wall segments showed normal motion. Findings: Study Quality * Technically adequate exam. ECG Findings * Atrial fibrillation/flutter. Left Ventricle * LVEF 60%. * Indeterminate diastolic function. * Normal LV wall thickness by dimensions. Grossly, there appears to be increased LV wall thickness. * Normal LV size. Right Ventricle * Normal right ventricular structure and function. Left Atrium * Severely dilated left atrium. Right Atrium * Moderately dilated right atrium. Aortic Valve * No aortic regurgitation. * Aortic valve not well visualized. * No aortic stenosis. Mitral Valve * No mitral regurgitation. * No mitral stenosis. * Mild mitral annular calcification * Mildly calcified mitral valve leaflets. Tricuspid Valve * Tricuspid valve not well visualized. * Mild tricuspid regurgitation. * Estimated RA pressure is 3 mmHg. * Estimated RVSP is 49 mmHg. * Moderate pulmonary hypertension. Pulmonic Valve * Pulmonic valve is not well visualized. * No pulmonic stenosis. * Trace pulmonic regurgitation. Pulmonary Artery * Pulmonary artery not well visualized. Aorta * Normally sized aortic root. * Ascending aorta not fully visualized. Pericardium * There is no pericardial effusion present. Device lead * A device lead was visualized in the right atrium and right ventricle. Pleural Effusion * A pleural effusion is present. Interatrial Septum * No evidence of PFO by color Doppler. IVC * Normal IVC dimensions and inspiratory collapse. Chest CTA 07/21/17 08:27 IMPRESSION: 1. No acute pulmonary artery embolism. 2. Cardiomegaly with ascending aortic aneurysm 4 cm. 3. Indeterminate mediastinal and bilateral hilar lymphadenopathy may be reactive in nature although neoplastic origin is not excluded. 4. Moderate bilateral pleural effusions with dense left lower lobe consolidation and air bronchograms may reflect pneumonia in the correct clinical setting. 5. Suspected vascular congestion pattern without florid pulmonary edema. 6. Stable ground-glass density perihilar region on the right and lesser extent left representing nonspecific inflammation or infection. D/ / 07/21/2017 09:38:12 [facility] Inter[facility] Provider: Ranjit Hernandez MD Chest X-Ray 07/21/17 13:47 IMPRESSION: 1. Intervally decreased left pleural effusion status post thoracentesis. No pneumothorax. 2. Findings in keeping with congestive heart failure. 3. Mild bibasilar atelectasis with superimposed infiltrates not excluded. D/ / Israel Villegas MD / Israel Villegas MD Interpreting Provider: Israel Villegas MD Consult Discharge Plan - Plan Referrals: Saurabh Lane MD [Primary Care Provider] - 08/02/17 10:00 am <Sanjeev Correa A - Last Filed: 07/22/17 17:39> Date of Encounter: 07/22/17 - Assessment and plan (1) Acute respiratory failure with hypoxia Current Visit: Yes Status: Acute (2) Pleural effusion, bilateral Current Visit: Yes Status: Acute (3) Acute exacerbation of CHF (congestive heart failure) Current Visit: Yes Status: Acute Qualifiers: Congestive heart failure type: diastolic Qualified Code(s): I50.33 - Acute on chronic diastolic (congestive) heart failure (4) Pneumonia Current Visit: Yes Status: Acute Qualifiers: Pneumonia type: due to unspecified organism Laterality: bilateral Lung location: unspecified part of lung Qualified Code(s): J18.9 - Pneumonia, unspecified organism (5) A-fib Current Visit: No Status: Chronic Qualifiers: Atrial fibrillation type: paroxysmal Qualified Code(s): I48.0 - Paroxysmal atrial fibrillation (6) Diabetes mellitus Current Visit: No Status: Chronic Qualifiers: Diabetes mellitus type: type 2 Diabetes mellitus complication status: without complication Diabetes mellitus exterminator insulin use: without exterminator use Qualified Code(s): E11.9 - Type 2 diabetes mellitus without complications (7) Hypertension Current Visit: No Status: Chronic Qualifiers: Hypertension type: essential hypertension Qualified Code(s): I10 - Essential (primary) hypertension (8) Thoracic aortic aneurysm, without rupture Current Visit: Yes Status: Acute - Constitutional Vitals: Temp Pulse Resp BP Pulse Ox 97.8 F 82 18 149/67 94 07/22/17 15:46 07/22/17 15:46 07/22/17 15:46 07/22/17 15:46 07/22/17 15:46 Internal Medicine: Result - Labs CBC & Chem 7: 07/22/17 04:39 07/22/17 04:39 Labs: Short CBC 07/22/17 Range/Units 04:39 WBC 11.0 (4.3-11.1) K/mcL Hgb 13.3 (11.5-15.4) g/dL Hct 39.0 (35.3-44.9) % Plt Count 154 (140-400) K/mcL Neutrophils # 7.4 (1.6-8.9) K/mcL BMP 07/22/17 04:39 Sodium 133 L Potassium 3.7 Chloride 101 Carbon Dioxide 23 BUN 27 H Creatinine 0.85 Glucose 117 H Calcium 9.3 Liver Function 07/22/17 Range/Units 04:39 Total Bilirubin 0.2 (0.2-1.2) mg/dL AST 27 (5-34) Units/L ALT 12 (0-55) Units/L Alkaline Phosphatase 44 (38-126) Units/L Albumin 3.1 L (3.5-5.0) g/dL - ABG Interpretation ABG results: PT/INR, D-dimer D-Dimer 3568 ng/mLFEU (0-500) H 07/21/17 04:46 - Attending Attestation I examined this patient and my medical decision-making was reviewed with the Resident Physician on 07/22/17. I agree with the documented findings, disposition and treatment plan as described except to the extent set forth below. Ms Avina is currently admitted for acute resp distress due to pleural effusions, PNA, CHF. She remains moderate to high risk due to potential for worsening respiratory status. Ms Avina is feeling somewhat better today. Breathing has improved. No CP. No fever or chills. Daughter at bedside. Exam Alert. Comfortable Mucus membranes dry Heart not tachy Lungs no wheeze I/P 1. Resp failure 2. Pleural effusions Further diagnoses and plan as above Prelim pleural fluid appears to be adenocarcinoma.
[2017-07-22] MEDS: ALPRAZolam 0.5 MG TABLET PO PRN ×2 (17:17→22:15)
[2017-07-22] MEDS: Ipratropium/Albuterol Neb 3 ML IH PRN (19:23)
[2017-07-22] MEDS: Latanoprost 2.5 ML BOTTLE RIGHT EYE SCH (21:36)
[2017-07-22] MEDS: Acetaminophen 325 MG TABLET PO PRN (22:13)
[2017-07-23] MEDS: Azithromycin 500 MG in D5% in Water 250 ML IVPB SCH (00:40)
[2017-07-23 04:26] LABS: Basophils % 0.3 %; Eosinophils # 0.2 K/mcL (0.0-0.6); Eosinophils % 2.4 %; Hematocrit 37.8 % (35.3-44.9); Hemoglobin 12.7 g/dL (11.5-15.4); Immature Granulocytes % 0.3 % (0-4); Immature Platelets 4.3 % (1.1-6.1); Lymphocytes # 1.8 K/mcL (0.6-4.6); Lymphocytes % 17.6 %; Mean Corpuscular HGB Conc 33.6 g/dL (31.6-35.5); Mean Corpuscular Hemoglobin 28.8 pg (28.0-33.3); Mean Corpuscular Volume 85.7 fL (83.0-100.0); Monocytes # 1.6 K/mcL (0.0-1.3); Monocytes % 15.8 %; Neutrophils # 6.4 K/mcL (1.6-8.9); Platelet Count 143 K/mcL (140-400); Red Blood Count 4.41 M/mcL (3.82-4.97); Segmented Neutrophils % 63.6 %
[2017-07-23 04:27] LABS: BUN/Creatinine Ratio 32 (6-26); Blood Urea Nitrogen 25 mg/dL (7-20); Carbon Dioxide 22 mEq/L (19-29); Chloride 101 mEq/L (98-109); Glucose 113 mg/dL (70-99); Osmolality,Calculated 277 (280-300); Potassium 3.7 mEq/L (3.5-4.5); Sodium 131 mEq/L (136-145); eGFR For African Americans > 60 (> 60); eGFR For Non-African Americans > 60 (> 60)
[2017-07-23 04:48] LABS: Hypersegmented Neutrophils Present (Not Present); Large Platelets Present (Not Present); Platelet Estimate Normal (Normal); Toxic Granulation Present (Not Present)
--- NOTE | 2017-07-23 08:51 | Internal Med Progress Note ---
<Alexandro Vences - Last Filed: 07/23/17 17:07> Date of Encounter: 07/23/17 Time of Encounter: 09:30 - Assessment and plan (1) Metastatic adenocarcinoma Current Visit: Yes Status: Acute Assessment and plan: Metastatic adenocarcinoma found in pleural fluid, unknown primary CT Chest does not show source, cells do not stain for primary lung or breast Pending CT Abdomen/Pelvis (2) Pleural effusion, bilateral Current Visit: Yes Status: Acute Assessment and plan: Bilateral pleural effusions secondary to metastatic adenocarcinoma of unknown origin Patient clinically appears euvolemic, avoid Lasix right now Oncology consult pending (3) Acute exacerbation of CHF (congestive heart failure) Current Visit: Yes Status: Acute Assessment and plan: Congestive heart failure with preserved ejection fraction, chronic Echocardiogram demonstrates LVEF 60%, indeterminate diastolic dysfunction. Previous echocardiogram 03/19 demonstrated ejection fraction 45% Patient appears euvolemic, maintain fluid restriction but hold lasix Continue Statin, BB, Jaden. Hold ASA due to hemorrhagic pleural fluid Qualifiers: Congestive heart failure type: diastolic Qualified Code(s): I50.33 - Acute on chronic diastolic (congestive) heart failure (4) Shortness of breath at rest Current Visit: Yes Status: Acute Assessment and plan: Dyspnea at rest, likely secondary to pleural effusions, CHF, pneumonia Patient started on azithromycin and ceftriaxone, serum blood cultures pending (5) Hemoptysis Current Visit: Yes Status: Acute Assessment and plan: Hemoptysis reported this morning, otherwise decreased cough patient admits to dysphagia this morning, possible esophageal etiology Consider GI consult for scope Continue to monitor (6) Diabetes mellitus Current Visit: No Status: Chronic Assessment and plan: DM2 in good control at this time Qualifiers: Diabetes mellitus type: type 2 Diabetes mellitus complication status: without complication Diabetes mellitus jail insulin use: without termination clerk use Qualified Code(s): E11.9 - Type 2 diabetes mellitus without complications (7) Thoracic aortic aneurysm, without rupture Current Visit: Yes Status: Acute Assessment and plan: CTA demonstrated a 4.0 x 4.0 cm aneurysm of the thoracic ascending aorta The patient has no recollection of being diagnosed with this aneurysm previously At this time we will initiate strict control of blood pressure Increase amlodipine to 5 mg twice a day, start metoprolol 12.5 mg twice a day (8) Hypertension Current Visit: No Status: Chronic Assessment and plan: Hypertension is moderately managed on current medications CTA demonstrated a 4.0 x 4.0 cm aneurysm of the thoracic ascending aorta At this time we will initiate strict control of blood pressure Increase amlodipine to 5 mg twice a day, start metoprolol 12.5 mg twice a day Qualifiers: Hypertension type: essential hypertension Qualified Code(s): I10 - Essential (primary) hypertension (9) A-fib Current Visit: No Status: Chronic Assessment and plan: Paroxysmal atrial fibrillation, chronic Rate controlled on current medications and AV paced The previously placed on xarelto, which was held secondary to hemoptysis on admission Qualifiers: Atrial fibrillation type: paroxysmal Qualified Code(s): I48.0 - Paroxysmal atrial fibrillation (10) DVT prophylaxis Current Visit: No Status: Acute Assessment and plan: Xarelto held for hemoptysis SCDs - Subjective Interval history: The patient is resting comfortably in bed at the time of examination.. She is accompanied by her daughter. The patient says that she is feeling much better than she did previously with significantly decreased dyspnea. She is still complaining of occasional hemoptysis especially this morning, however she says that her cough has subsided pretty substantially otherwise. - Constitutional Vitals: Temp Pulse Resp BP Pulse Ox 97.5 F L 80 17 159/72 90 07/23/17 04:00 07/23/17 07:00 07/23/17 07:00 07/23/17 07:00 07/23/17 07:00 General appearance: Present: mild distress, A&O X 3, underweight, answers questions appropriately Exam: - Head Head exam: Present: atraumatic, normocephalic - Eye Eye exam: Present: PERRL, conjuntiva pink, sclera anicteric Pupils: Present: PERRL - Neck Neck exam general surgery: Present: supple, trachea midline. Absent: lymphadenopathy - Respiratory Respiratory exam: Present: decreased breath sounds, rales. Absent: accessory muscle use, rhonchi, wheezes Additional comments: Markedly decreased breath sounds on the right, diffuse fine crackles can be heard - Cardiovascular Cardiovascular exam: Present: RRR, +S1, +S2. Absent: diastolic murmur, gallop, rubs, systolic murmur - GI/Abdominal GI/Abdominal exam: Present: normal bowel sounds, soft, no peritoneal signs. Absent: distended, tenderness - Extremities Exam Extremities exam: Present: warm, radial pulses palpable and symmetrical. Absent : calf tenderness, cyanotic, pedal edema - Neurological Exam Neurological exam: Present: CN II-XII intact, oriented X3, no focal deficits. Absent: pronater drift, facial droop, speech deficit - Skin Skin exam: Present: dry, intact Internal Medicine: Result - Labs CBC & Chem 7: 07/23/17 03:38 07/23/17 03:38 Labs: Short CBC 07/23/17 Range/Units 03:38 WBC 10.0 (4.3-11.1) K/mcL Hgb 12.7 (11.5-15.4) g/dL Hct 37.8 (35.3-44.9) % Plt Count 143 (140-400) K/mcL Neutrophils # 6.4 (1.6-8.9) K/mcL BMP 07/23/17 03:38 Sodium 131 L Potassium 3.7 Chloride 101 Carbon Dioxide 22 BUN 25 H Creatinine 0.79 Glucose 113 H Calcium 9.0 - ABG Interpretation ABG results: PT/INR, D-dimer D-Dimer 3568 ng/mLFEU (0-500) H 07/21/17 04:46 - VTE Documentation of Mechanical Device: Intermittent pneumatic compression device Consult Discharge Plan - Plan Referrals: Saurabh Lane MD [Primary Care Provider] - 08/02/17 10:00 am <Sanjeev Correa - Last Filed: 07/23/17 18:55> Date of Encounter: 07/23/17 - Assessment and plan (1) Acute respiratory failure with hypoxia Current Visit: Yes Status: Acute (2) Malignant pleural effusion Current Visit: Yes Status: Acute (3) Acute exacerbation of CHF (congestive heart failure) Current Visit: Yes Status: Acute Qualifiers: Congestive heart failure type: diastolic Qualified Code(s): I50.33 - Acute on chronic diastolic (congestive) heart failure (4) Pneumonia Current Visit: Yes Status: Acute Qualifiers: Pneumonia type: due to unspecified organism Laterality: bilateral Lung location: unspecified part of lung Qualified Code(s): J18.9 - Pneumonia, unspecified organism (5) A-fib Current Visit: No Status: Chronic Qualifiers: Atrial fibrillation type: paroxysmal Qualified Code(s): I48.0 - Paroxysmal atrial fibrillation (6) Diabetes mellitus Current Visit: No Status: Chronic Qualifiers: Diabetes mellitus type: type 2 Diabetes mellitus complication status: without complication Diabetes mellitus jail insulin use: without termination clerk use Qualified Code(s): E11.9 - Type 2 diabetes mellitus without complications (7) Hypertension Current Visit: No Status: Chronic Qualifiers: Hypertension type: essential hypertension Qualified Code(s): I10 - Essential (primary) hypertension (8) Thoracic aortic aneurysm, without rupture Current Visit: Yes Status: Acute - Constitutional Vitals: Temp Pulse Resp BP Pulse Ox 97.5 F L 80 15 155/75 96 07/23/17 04:00 07/23/17 15:00 07/23/17 15:00 07/23/17 15:00 07/23/17 15:00 Internal Medicine: Result - Labs CBC & Chem 7: 07/23/17 03:38 07/23/17 03:38 Labs: Short CBC 07/23/17 Range/Units 03:38 WBC 10.0 (4.3-11.1) K/mcL Hgb 12.7 (11.5-15.4) g/dL Hct 37.8 (35.3-44.9) % Plt Count 143 (140-400) K/mcL Neutrophils # 6.4 (1.6-8.9) K/mcL BMP 07/23/17 03:38 Sodium 131 L Potassium 3.7 Chloride 101 Carbon Dioxide 22 BUN 25 H Creatinine 0.79 Glucose 113 H Calcium 9.0 - ABG Interpretation ABG results: PT/INR, D-dimer D-Dimer 3568 ng/mLFEU (0-500) H 07/21/17 04:46 - Attending Attestation I examined this patient and my medical decision-making was reviewed with the Resident Physician on 07/23/17. I agree with the documented findings, disposition and treatment plan as described except to the extent set forth below. Ms Avina is currently admitted for acute hypoxic resp failure due to malignant pleural effusion. She remains moderate to high risk due to potential for worsening respiratory status. Ms Avina is drinking contrast for CT scan. No fever or chills. Denies pain currently. Having some dyspnea. No diarrhea Exam Alert. Mod distress due to dyspnea Mucus membranes dry Heart reg Lungs diminished Abd soft I/P 1. Hypoxia 2. Malig pleural effusion Further diagnoses and plan as above.
[2017-07-23] MEDS: Insulin LISPRO 300 UNITS/3 ML VIAL SQ SCH ×4 (09:59→22:33)
[2017-07-23] MEDS: Diltiazem SR (12hr) 60 MG CAPSULE PO SCH ×2 (10:14→22:31)
[2017-07-23] MEDS: Dorzolamide/Timolol OPTH 10 ML BOTTLE RIGHT EYE SCH ×2 (10:15→22:29)
[2017-07-23] MEDS: Multivit/Ca/Min/Fe/FA 1 TAB TABLET PO SCH (10:16)
[2017-07-23] MEDS: amLODIPine 5 MG TABLET PO SCH ×2 (10:16→22:32)
[2017-07-23] MEDS: Lisinopril 20 MG TABLET PO SCH (10:16)
[2017-07-23] MEDS ORDERED: 0.9 % Sodium Chloride 1,000 ML IVC SCH (14:15)
--- NOTE | 2017-07-23 18:26 | Oncology Inp Consult Note ---
Date of Encounter: 07/26/17 Time of Encounter: 18:24 Assessment and Plan (1) Breast cancer, left Status: Acute Assessment and plan: Was early stage breast cancer and treated as mentioned above. Qualifiers: Qualified Code(s): C50.912 - Malignant neoplasm of unspecified site of left female breast; Z17.1 - Estrogen receptor negative status [ER-]; Z17.1 - Estrogen receptor negative status [ER-] (2) Metastatic adenocarcinoma Status: Acute Assessment and plan: Metastatic adenocarcinoma in the pleural fluid. FABRICE 3 negative, ammaglobulin negative and ER/MA negative. Less likely to be breast cancer in origin. CK 7 positive but TTF-1 negative. Most likely lung primary. Bronchoscopy and evaluation of the left lower lobe may be helpful. She also has enlarged precarinal lymph node which could be biopsied . As she is very decompensated bronchoscopy cannot be performed safely at this time Left Pleurx catheter placed. She had small amount of hemoptysis but could be from pneumonia Shortness of breath because of effusions are at still has large right effusion and may have to be drained - Data of Consult Patient: known to practice within the last 3 years Requesting Physician: Sanjeev Correa DO Primary Care Provider: Saurabh Lane MD - Consult Narrative Reason for consult: Metastatic adenocarcinoma History of present illness: Ms. Avina is a 81 year old female admitted with shortness of breath. Bilateral pleural effusion right more than left. 800 mL of left pleurocentesis done 07/20/2017 was positive for adenocarcinoma Calretinin negative. CK 5/6 negative. CK 7 positive and CK 20 negative. GETA 3 negative ER/MA negative TTF-1 negative. This makes it breast cancer less likely but her breast cancer was ER/MA negative as well Also has history of CHF with poor ejection fraction in 2016. chronic atrial fibrillation and osteoporosis CT chest circulating 2017 and 07/20/2017 showed dense left lower lobe consolidation. Bilateral pleural effusion right larger than left line CT angiogram chest 07/20/2017 negative for PE. She also has indeterminate mediastinal adenopathy. Final lymph node about 2 cm and prevascular lymph node. Right hilar lymph node 1.8 cm. Also some lymph node extending to anterior mediastinum. CT abdomen and pelvis 07/23/2017 done and results pending. No obvious lesions in the liver. 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 Lumpectomy on October 2013 Dr. Che. Tumor size 8 mm margins clear one lymph node negative. The pathology showed invasive ductal carcinoma, grade 2-3. ER zero, MA zero, Her2 2+, FISH negative. She had KIARA catheter placed but due to complications it was removed. She then completed 30 days of external beam radiation. Mammogram and ultrasound showed hypoechoic area 0.6 cm and 0.4 cm the left axilla and ultrasound-guided biopsy /aspiration showed benign changes September 2014 and consistent with cystic areas. Also mass in the retroareolar region biopsied and benign. Diagnostic mammogram March 2015 left breast showed a 1.6 cm lipoma gracy aerioloar region. Also resolving hematoma. Another mass visualized before has resolved. No chemotherapy. She won't be a candidate for anti-estrogen treatment. Bilateral screening mammo on 03/23/16 was category 2 Past Med Surg Social Fam HX - Past Medical History Medical history: atrial fibrillation, cancer, diabetes, hyperlipidemia, hypertension Psychiatric history: no psych history - Past Surgical History Surgical History: pacemaker/AICD - Social History Smoking Status: Never smoker Smokeless Tobacco Status: No Alcohol use: none Drug use: none - Family History Father Living Status: Age at : 29 Cause of : Brain tumor Mother Living Status: Age at : 72 Cause of : Stroke, heart disease Medications and Allergies ALPRAZolam [Xanax 0.5 MG Tablet] 0.5 mg PO BID PRN 07/24/16 [History] Amlodipine Besylate [Amlodipine Besylate] 2.5 mg PO BID 07/24/16 [History] Brimonidine 0.2% [Alphagan] 1 drop BOTH EYES BID 07/24/16 [History] Calcium Carbonate [Calcium] 600 mg PO BID 07/24/16 [History] Denosumab [Prolia (For Outpatient Infusion)] 60 mg SQ [id number] 07/24/16 [History ] Lisinopril [Zestril] 40 mg PO DAILY 07/24/16 [History] Multivit-Min/FA/Lycopen/Lutein [Adults 50+ Multivitamin Tablet] 1 each PO DAILY 07/24/16 [History] Omeprazole 20 mg PO DAILY PRN 07/24/16 [History] Potassium Chloride [Klor-Con] 20 meq PO DAILY 07/24/16 [History] Rivaroxaban [Xarelto] 20 mg PO QPM 07/24/16 [History] hydroCHLOROthiazide [Hydrochlorothiazide] 25 mg PO DAILY 07/24/16 [History] Diltiazem HCl [Diltiazem 12Hr ER] 120 mg PO BID 07/20/17 [History] Dorzolamide/Timolol [Cosopt] 1 drop OP BID 07/20/17 [History] Latanoprost [Xalatan] 1 drop OP HS 07/20/17 [History] Promethazine/Phenyleph/Codeine [Promethazine Vc-Codeine Syrup] 5 ml PO Q6H PRN 07/20/17 [History] Simvastatin [Zocor] 10 mg PO HS 07/20/17 [History] 3 Allergy/AdvReac Type Severity Reaction Status Date / Time aspartame AdvReac Migraine Verified 07/20/17 19:44 Review of systems: Shortness of breath. Deconditioning Oncology - Exam - Constitutional Vitals: Temp Pulse Resp BP Pulse Ox 97.5 F L 80 15 155/75 96 07/23/17 04:00 07/23/17 15:00 07/23/17 15:00 07/23/17 15:00 07/23/17 15:00 Exam: GENERAL: Alert and oriented, well appearing. Mental Status: Affect appropriate for circumstances HEENT: Sclerae anicteric. No mucositis or thrush. No other oral or pharyngeal lesions or erythema. Skin: No rashes or petechiae. No evidence of skin malignancy Lymph nodes: No cervical, supraclavicular, axillary, or inguinal adenopathy. Lungs: Air entry decreased both bases right worse than left Cardiovascular: Regular rate and rhythm. No skipped beats Abdomen: Soft, nontender; no organomegaly or masses palpable. Extremities: No edema. No calf swelling or tenderness. No joint deformity. Neurologic: Alert, cranial nerves II-XII intact; normal gait; no focal weakness or sensory abnormalities Oncology - Results Labs: Short CBC 07/23/17 Range/Units 03:38 WBC 10.0 (4.3-11.1) K/mcL Hgb 12.7 (11.5-15.4) g/dL Hct 37.8 (35.3-44.9) % Plt Count 143 (140-400) K/mcL Neutrophils # 6.4 (1.6-8.9) K/mcL BMP 07/23/17 03:38 Sodium 131 L Potassium 3.7 Chloride 101 Carbon Dioxide 22 BUN 25 H Creatinine 0.79 Glucose 113 H Calcium 9.0 Consult Discharge Plan - Plan Referrals: Saurabh Lane MD [Primary Care Provider] - 08/02/17 10:00 am
[2017-07-23] MEDS: Ipratropium/Albuterol Neb 3 ML IH PRN (20:14)
[2017-07-23] MEDS: Latanoprost 2.5 ML BOTTLE RIGHT EYE SCH (22:29)
[2017-07-23] MEDS: Azithromycin 250 MG TABLET PO SCH (23:21)
[2017-07-24] MEDS: *HR* Morphine 2 MG/ML SYRINGE IVP PRN ×2 (02:21→09:26)
[2017-07-24] MEDS: Ipratropium/Albuterol Neb 3 ML IH PRN ×2 (02:37→13:36)
[2017-07-24 05:39] LABS: Basophils % 0.3 %; Eosinophils # 0.1 K/mcL (0.0-0.6); Eosinophils % 1.2 %; Hematocrit 40.6 % (35.3-44.9); Hemoglobin 13.9 g/dL (11.5-15.4); Immature Granulocytes % 0.6 % (0-4); Lymphocytes # 2.1 K/mcL (0.6-4.6); Lymphocytes % 17.7 %; Mean Corpuscular HGB Conc 34.2 g/dL (31.6-35.5); Mean Corpuscular Hemoglobin 29.1 pg (28.0-33.3); Mean Corpuscular Volume 84.9 fL (83.0-100.0); Mean Platelet Volume 10.2 fL (9.4-12.4); Monocytes # 1.4 K/mcL (0.0-1.3); Monocytes % 11.7 %; Neutrophils # 8.2 K/mcL (1.6-8.9); Nucleated Red Blood Cells 0.2 /100 WBC (0); Platelet Count 161 K/mcL (140-400); Red Blood Count 4.78 M/mcL (3.82-4.97); Segmented Neutrophils % 68.5 %
[2017-07-24 05:52] LABS: BUN/Creatinine Ratio 25 (6-26); Blood Urea Nitrogen 19 mg/dL (7-20); Calcium 9.6 mg/dL (8.6-10.8); Carbon Dioxide 21 mEq/L (19-29); Chloride 100 mEq/L (98-109); Glucose 137 mg/dL (70-99); Osmolality,Calculated 276 (280-300); Potassium 4.4 mEq/L (3.5-4.5); Sodium 131 mEq/L (136-145); eGFR For African Americans > 60 (> 60); eGFR For Non-African Americans > 60 (> 60)
[2017-07-24] MEDS: Multivit/Ca/Min/Fe/FA 1 TAB TABLET PO SCH (08:56)
[2017-07-24] MEDS: amLODIPine 5 MG TABLET PO SCH ×2 (08:57→20:26)
[2017-07-24] MEDS: Diltiazem SR (12hr) 60 MG CAPSULE PO SCH ×2 (08:58→20:25)
[2017-07-24] MEDS: Lisinopril 20 MG TABLET PO SCH (08:58)
[2017-07-24] MEDS: Insulin LISPRO 300 UNITS/3 ML VIAL SQ SCH ×4 (08:59→20:06)
[2017-07-24] MEDS: Dorzolamide/Timolol OPTH 10 ML BOTTLE RIGHT EYE SCH ×2 (09:16→20:27)
--- NOTE | 2017-07-24 09:20 | Pulmonology Consult Note ---
Date of Encounter: 07/24/17 Time of Encounter: 09:00 Assessment and Plan (1) Hemoptysis Current Visit: Yes Status: Acute Hemoptysis is very minimal will quantify to keep sputum cup at bedside , to continue Ceftriaxone and Azithromycin for possible pneumonia . No urgent need for bronchoscopy patient has adequate gas exchange . (2) Malignant pleural effusion Current Visit: Yes Status: Acute Patient had left sided thoracentesis 850 ml of hemorrhagic fluid cytology came back as adenocarcinoma the stains didnt show as breast as primary , as for now we dont know the primary source , CK 7 is positive can be lung primary Probably will need a Bronchscopy and Thoracentesis Vs Pleurex catheter on wednesday , did US to evaluate the moderate sized pleural effusion the fluid was more echogenic looks like blood . Will talk with family what will be the goals of care . Stage IV due to malignant pleural effusion . (3) Hilar adenopathy Current Visit: Yes Status: Acute Oncology saw the patient yesterday patient has precarinal and Hilar LN in the background of hemoptysis reasonable to do airway exam EBUS transbronchial LN biopsy and thoracentesis Vs Pleurex Catheter Will do it on Wednesday will discuss the case with . To speak with Daughter about the plan . History of Present Illness Consult date: 07/24/17 Requesting physician: Sanjeev Correa Reason for consult: pleural effusion, abnormal CXR/CT Chief complaint: Shortness of breadth History of present illness: 81 year old female with past medical history significant for HTN, A fib was on Xarelto, CHF diastolic dysfunction with Dilated LA atrium comes with 3-4 days of shortness of breadth with bilateral pleural effusion had a thoracentesis bloody fluid came positive for adenocarcinoma patient had breast ca in the the past but the immunologic stain work up done was negative for Breast Ca , CK-7 was positive , TTF-1 was negative still can be lung primary , CT scan showed bilateral effusion with Lower lobe consolidation , patient has precarinal LN and Hilar LN , patient also has on and off hemoptysis mixed with sputum . Patient denies any fever or chills , has some orthopnea and no PND , patient is Ok at rest but when she exerts mimimally becomes short of breadth . Pulmonary was consult for possible bronchoscopy and Pleurex catheter for Malignant pleural effusion. Past Med Surg Social Fam HX - Past Medical History Medical history: atrial fibrillation, cancer, diabetes, hyperlipidemia, hypertension Psychiatric history: no psych history - Past Surgical History Surgical History: pacemaker/AICD - Social History Smoking Status: Never smoker Smokeless Tobacco Status: No Alcohol use: none Drug use: none - Family History Father Living Status: Age at : 29 Cause of : Brain tumor Mother Living Status: Age at : 72 Cause of : Stroke, heart disease Medications and Allergies ALPRAZolam [Xanax 0.5 MG Tablet] 0.5 mg PO BID PRN 07/24/16 [History] Amlodipine Besylate [Amlodipine Besylate] 2.5 mg PO BID 07/24/16 [History] Brimonidine 0.2% [Alphagan] 1 drop BOTH EYES BID 07/24/16 [History] Calcium Carbonate [Calcium] 600 mg PO BID 07/24/16 [History] Denosumab [Prolia (For Outpatient Infusion)] 60 mg SQ [id number] 07/24/16 [History ] Lisinopril [Zestril] 40 mg PO DAILY 07/24/16 [History] Multivit-Min/FA/Lycopen/Lutein [Adults 50+ Multivitamin Tablet] 1 each PO DAILY 07/24/16 [History] Omeprazole 20 mg PO DAILY PRN 07/24/16 [History] Potassium Chloride [Klor-Con] 20 meq PO DAILY 07/24/16 [History] Rivaroxaban [Xarelto] 20 mg PO QPM 07/24/16 [History] hydroCHLOROthiazide [Hydrochlorothiazide] 25 mg PO DAILY 07/24/16 [History] Diltiazem HCl [Diltiazem 12Hr ER] 120 mg PO BID 07/20/17 [History] Dorzolamide/Timolol [Cosopt] 1 drop OP BID 07/20/17 [History] Latanoprost [Xalatan] 1 drop OP HS 07/20/17 [History] Promethazine/Phenyleph/Codeine [Promethazine Vc-Codeine Syrup] 5 ml PO Q6H PRN 07/20/17 [History] Simvastatin [Zocor] 10 mg PO HS 07/20/17 [History] 3 Allergy/AdvReac Type Severity Reaction Status Date / Time aspartame AdvReac Migraine Verified 07/20/17 19:44 All Systems: A 10-system review of systems was performed and is negative for pertinent findings except as documented above in the HPI. Physical Examination Vital Signs: Vital Signs, Last 4 Hours Temp Pulse Resp BP Pulse Ox 07/24/17 07:08 98.2 F 79 15 148/66 94 General appearance: no acute distress, other (Mild respiratory distress) Effort: normal, mildly labored Auscultation: bilateral: diminished breath sounds (More than the right ) Results - Laboratory Findings CBC and BMP: 07/24/17 05:31 07/24/17 05:31 PT/INR, D-dimer D-Dimer 3568 ng/mLFEU (0-500) H 07/21/17 04:46 Abnormal lab findings: Abnormal lab results WBC 11.9 K/mcL (4.3-11.1) H 07/24/17 05:31 Monocytes # 1.4 K/mcL (0.0-1.3) H 07/24/17 05:31 Nucleated RBCs/100 WBC 0.2 /100 WBC (0) H 07/24/17 05:31 Hypersegmented Neuts Present (Not Present) A 07/23/17 03:38 Toxic Granulation Present (Not Present) A 07/23/17 03:38 Large Platelets Present (Not Present) A 07/23/17 03:38 D-Dimer 3568 ng/mLFEU (0-500) H 07/21/17 04:46 Sodium 131 mEq/L (136-145) L 07/24/17 05:31 Glucose 137 mg/dL (70-99) H 07/24/17 05:31 POC Glucose 171 (58-89) H 07/23/17 16:15 Calculated Osmolality 276 (280-300) L 07/24/17 05:31 Lactate Dehydrogenase 535 Units/L (159-327) H 07/21/17 04:46 B-Natriuretic Peptide 121 pg/mL (0-100) H 07/20/17 17:46 Albumin 3.1 g/dL (3.5-5.0) L 07/22/17 04:39 Albumin/Globulin Ratio 0.9 (1.1-2.2) L 07/22/17 04:39 Pleural Appearance Bloody (Clear) A 07/21/17 13:40 Pleural RBC 0.255 M/mcL (0.000-0.002) H 07/21/17 13:40 Pleural Tot Nuc Cell 1292 TNC/mcL (0-1000) H 07/21/17 13:40 - Microbiology Findings Microbiology Findings: Microbiology, Last 48 Hours 07/21/17 13:40 Body Fluid Culture - Preliminary Pleural Fluid - Clinical Findings Intake & Output: Intake & Output 07/23/17 07/24/17 07/24/17 23:59 07:59 15:59 Intake Total 50 / 50 300 / 300 Output Total 600 / 600 Balance 50 / 50 -300 / -300 Weight 66.2 kg Consult Discharge Plan - Plan Referrals: Saurabh Lane MD [Primary Care Provider] - 08/02/17 10:00 am
[2017-07-24] MEDS: Ondansetron 4 MG/2 ML VIAL IVP PRN (09:34)
[2017-07-24] MEDS: ALPRAZolam 0.5 MG TABLET PO PRN ×2 (12:55→23:23)
--- NOTE | 2017-07-24 18:44 | Internal Med Progress Note ---
Date of Encounter: 07/24/17 Time of Encounter: 08:30 - Assessment and plan (1) Acute respiratory failure with hypoxia Current Visit: Yes Status: Acute Assessment and plan: Continue oxygen supplementation. (2) Malignant pleural effusion Current Visit: Yes Status: Acute Assessment and plan: Pulm consult today. May need pleuryx catheter placement. (3) Acute exacerbation of CHF (congestive heart failure) Current Visit: Yes Status: Acute Assessment and plan: Congestive heart failure with preserved ejection fraction, chronic Echocardiogram demonstrates LVEF 60%, indeterminate diastolic dysfunction. Previous echocardiogram 03/19 demonstrated ejection fraction 45% Patient appears euvolemic, maintain fluid restriction but hold lasix Continue Statin, BB, Jaden. Hold ASA due to hemorrhagic pleural fluid Qualifiers: Congestive heart failure type: diastolic Qualified Code(s): I50.33 - Acute on chronic diastolic (congestive) heart failure (4) Pneumonia Current Visit: Yes Status: Acute Assessment and plan: Completing abx therapy. Qualifiers: Pneumonia type: due to unspecified organism Laterality: bilateral Lung location: unspecified part of lung Qualified Code(s): J18.9 - Pneumonia, unspecified organism (5) A-fib Current Visit: No Status: Chronic Assessment and plan: Paroxysmal atrial fibrillation, chronic Rate controlled on current medications and AV paced The previously placed on xarelto, which was held secondary to hemoptysis on admission Qualifiers: Atrial fibrillation type: paroxysmal Qualified Code(s): I48.0 - Paroxysmal atrial fibrillation (6) Diabetes mellitus Current Visit: No Status: Chronic Assessment and plan: DM2 in good control at this time Qualifiers: Diabetes mellitus type: type 2 Diabetes mellitus complication status: without complication Diabetes mellitus exterminator helper insulin use: without exterminator helper use Qualified Code(s): E11.9 - Type 2 diabetes mellitus without complications (7) Hypertension Current Visit: No Status: Chronic Assessment and plan: Hypertension is moderately managed on current medications CTA demonstrated a 4.0 x 4.0 cm aneurysm of the thoracic ascending aorta Blood pressure better controlled. Qualifiers: Hypertension type: essential hypertension Qualified Code(s): I10 - Essential (primary) hypertension (8) Thoracic aortic aneurysm, without rupture Current Visit: Yes Status: Acute Assessment and plan: BP control. - Subjective Interval history: Ms Avina is currently admitted for acute hypoxic resp failure due to malignant pleural effusion. She remains moderate to high risk due to potential for worsening resp status. Ms Avina is having bowel issues. She is constipated. She is also having more breathing difficulty over last 24 hours. No fever or chills. No cough. No CP. - Constitutional Vitals: Temp Pulse Resp BP Pulse Ox 98.0 F 79 15 155/58 92 07/24/17 16:00 07/24/17 16:00 07/24/17 16:00 07/24/17 16:00 07/24/17 16:00 General appearance: Present: mild distress, A&O X 3, underweight, answers questions appropriately - Head Head exam: Present: normocephalic - Eye Eye exam: Present: conjuntiva pink - ENT ENT exam: Present: mucous membranes dry - Respiratory Respiratory exam: Present: decreased breath sounds, wheezes. Absent: rhonchi - Cardiovascular Cardiovascular exam: Present: RRR. Absent: tachycardia - GI/Abdominal GI/Abdominal exam: Present: soft. Absent: tenderness - Extremities Exam Extremities exam: Present: warm. Absent: tenderness - Neurological Exam Neurological exam: Present: alert, oriented X3, no focal deficits - Psychiatric Psychiatric exam: Present: depressed - Skin Skin exam: Present: vesicles. Absent: rash Internal Medicine: Result - Labs CBC & Chem 7: 07/24/17 05:31 07/24/17 05:31 Labs: Short CBC 07/24/17 Range/Units 05:31 WBC 11.9 H (4.3-11.1) K/mcL Hgb 13.9 (11.5-15.4) g/dL Hct 40.6 (35.3-44.9) % Plt Count 161 (140-400) K/mcL Neutrophils # 8.2 (1.6-8.9) K/mcL BMP 07/24/17 05:31 Sodium 131 L Potassium 4.4 Chloride 100 Carbon Dioxide 21 BUN 19 Creatinine 0.76 Glucose 137 H Calcium 9.6 - ABG Interpretation ABG results: PT/INR, D-dimer D-Dimer 3568 ng/mLFEU (0-500) H 07/21/17 04:46 - Impressions Impressions Abdomen/Pelvis CT 07/23/17 18:00 IMPRESSION: Distal rectum is thickened, new. Findings may be related to proctitis. If no clinical improvement recommend further evaluation to exclude underlying lesion. 4 mm low-attenuation lesion in the right hepatic lobe which is too small to accurately characterize but appears new since previous exam. Bilateral pleural effusions, new. New partial consolidation within the lung bases as well as interlobular septal wall thickening which appears somewhat nodular. Findings concerning for lymphangitic spread of cancer. D/ / Ngozi Golden MD / Ngozi Golden MD Interpreting Provider: Ngozi Golden MD - VTE Documentation of Mechanical Device: Intermittent pneumatic compression device Consult Discharge Plan - Plan Referrals: Saurabh Lane MD [Primary Care Provider] - 08/02/17 10:00 am
[2017-07-24] MEDS: Acetaminophen 325 MG TABLET PO PRN (18:59)
[2017-07-24] MEDS: Latanoprost 2.5 ML BOTTLE RIGHT EYE SCH (20:27)
[2017-07-25] MEDS: Azithromycin 250 MG TABLET PO SCH (00:23)
[2017-07-25] MEDS: *HR* Morphine 2 MG/ML SYRINGE IVP PRN ×2 (04:58→16:03)
[2017-07-25 08:01] LABS: Hematocrit 43.6 % (35.3-44.9); Hemoglobin 14.4 g/dL (11.5-15.4); Mean Corpuscular Hemoglobin 28.6 pg (28.0-33.3); Mean Corpuscular Volume 86.7 fL (83.0-100.0); Mean Platelet Volume 10.2 fL (9.4-12.4); Platelet Count 196 K/mcL (140-400); Red Blood Count 5.03 M/mcL (3.82-4.97); Red Cell Distribution Width 12.9 % (11.5-14.5)
--- NOTE | 2017-07-25 08:12 | Pulmonology Progress Note ---
Date of Encounter: 07/25/17 Time of Encounter: 08:00 Assessment and Plan (1) Hemoptysis Current Visit: Yes Status: Acute Patient has minimal hemoptysis saw it was collected in a sputum cup blood mixed with sputum , will send the sample for culture , speaking with daughter she was having more hmeoptysis earlier part of this week now it is slowing down .Will need evaluation of airways. (2) Malignant pleural effusion Current Visit: Yes Status: Acute Patient had left sided thoracentesis which showed hemorrhagic pleural effusion positive for adenocarcinoma , had moderate sized right sided pleural effusion most likely due to metastatic spread will do Thoracentesis while she goes for bronchoscopy will discuss option of pleurex catheter . (3) Hilar adenopathy Current Visit: Yes Status: Acute Patient has Precarinal LN which was stable from CT scan in june, has hilar LN will do Bronchoscopy examination of airways, EBUS TBNA will keep her NPO will get her coagulation , patient is off Xarelto for the whole inpatient stay . Will discuss wiht as he is taking over the service tomorrow. Subjective Principal diagnosis: Metastatic Adenocarcinoma Interval history: 81 year old female with Bilateral pleural effusion with left lower lobe consolidation with some mediastinal lymphadenopathy (Pre-Carinal LN was enlarged ), Right Hilar LN , had on and off hemoptysis last 24 hrs is very minimal , patient doesnt have any complaints apart for being weak. Pleural fluid came positive for Adenocarcinoma negative for Breast Ca as she had breast carcinoma in the past , CK 7 positive , TTF-1 negative will need airway evaluation. Objective PUL Vital signs: Last Vital Signs Temp 97.7 F 07/25/17 07:58 Pulse 81 07/25/17 07:58 Resp 12 07/25/17 07:58 BP 145/51 07/25/17 07:58 Pulse Ox 93 07/25/17 07:58 General appearance: other (Mild respiratory distress) Effort: mildly labored Auscultation: left: diminished breath sounds, right: wheezes Results - Laboratory Findings CBC and BMP: 07/25/17 07:39 07/25/17 07:39 PT/INR, D-dimer D-Dimer 3568 ng/mLFEU (0-500) H 07/21/17 04:46 Abnormal lab findings: Abnormal lab results WBC 14.1 K/mcL (4.3-11.1) H 07/25/17 07:39 RBC 5.03 M/mcL (3.82-4.97) H 07/25/17 07:39 Monocytes # 1.4 K/mcL (0.0-1.3) H 07/24/17 05:31 Nucleated RBCs/100 WBC 0.2 /100 WBC (0) H 07/24/17 05:31 Hypersegmented Neuts Present (Not Present) A 07/23/17 03:38 Toxic Granulation Present (Not Present) A 07/23/17 03:38 Large Platelets Present (Not Present) A 07/23/17 03:38 D-Dimer 3568 ng/mLFEU (0-500) H 07/21/17 04:46 Sodium 131 mEq/L (136-145) L 07/24/17 05:31 Glucose 137 mg/dL (70-99) H 07/24/17 05:31 POC Glucose 144 (58-89) H 07/23/17 22:25 Calculated Osmolality 276 (280-300) L 07/24/17 05:31 Lactate Dehydrogenase 535 Units/L (159-327) H 07/21/17 04:46 B-Natriuretic Peptide 121 pg/mL (0-100) H 07/20/17 17:46 Albumin 3.1 g/dL (3.5-5.0) L 07/22/17 04:39 Albumin/Globulin Ratio 0.9 (1.1-2.2) L 07/22/17 04:39 Pleural Appearance Bloody (Clear) A 07/21/17 13:40 Pleural RBC 0.255 M/mcL (0.000-0.002) H 07/21/17 13:40 Pleural Tot Nuc Cell 1292 TNC/mcL (0-1000) H 07/21/17 13:40 - Microbiology Findings Microbiology Findings: Microbiology, Last 48 Hours 07/21/17 13:40 Body Fluid Culture - Final Pleural Fluid - Clinical Findings Intake & Output: Intake & Output 07/24/17 07/25/17 07/25/17 23:59 07:59 15:59 Weight 67.2 kg - VTE Documentation of Mechanical Device: Intermittent pneumatic compression device Consult Discharge Plan - Plan Referrals: Saurabh Lane MD [Primary Care Provider] - 08/02/17 10:00 am
[2017-07-25 08:13] LABS: BUN/Creatinine Ratio 26 (6-26); Blood Urea Nitrogen 20 mg/dL (7-20); Calcium 9.5 mg/dL (8.6-10.8); Carbon Dioxide 23 mEq/L (19-29); Chloride 100 mEq/L (98-109); Glucose 170 mg/dL (70-99); Magnesium 1.9 mg/dL (1.6-2.6); Osmolality,Calculated 279 (280-300); Potassium 4.9 mEq/L (3.5-4.5); Sodium 131 mEq/L (136-145); eGFR For African Americans > 60 (> 60); eGFR For Non-African Americans > 60 (> 60)
[2017-07-25 09:12] LABS: INR 1.1
[2017-07-25] MEDS: Multivit/Ca/Min/Fe/FA 1 TAB TABLET PO SCH (09:12)
[2017-07-25] MEDS: Diltiazem SR (12hr) 60 MG CAPSULE PO SCH ×2 (09:13→22:01)
[2017-07-25] MEDS: Lisinopril 20 MG TABLET PO SCH (09:14)
[2017-07-25] MEDS: amLODIPine 5 MG TABLET PO SCH (09:14)
[2017-07-25] MEDS: Insulin LISPRO 300 UNITS/3 ML VIAL SQ SCH ×4 (09:22→21:30)
[2017-07-25] MEDS: Dorzolamide/Timolol OPTH 10 ML BOTTLE RIGHT EYE SCH ×2 (09:22→22:01)
[2017-07-25] MEDS: ALPRAZolam 0.5 MG TABLET PO PRN ×2 (09:27→22:02)
[2017-07-25] MEDS: Acetaminophen 325 MG TABLET PO PRN (15:14)
[2017-07-25] MEDS: Ipratropium/Albuterol Neb 3 ML IH PRN (15:40)
--- NOTE | 2017-07-25 15:56 | Internal Med Progress Note ---
Date of Encounter: 07/25/17 Time of Encounter: 11:00 - Assessment and plan (1) Acute respiratory failure with hypoxia Current Visit: Yes Status: Acute Assessment and plan: Continue oxygen supplementation. Maintaining saturation at about 93% currently. (2) Malignant pleural effusion Current Visit: Yes Status: Acute Assessment and plan: Plan for bronch and possible Pleuryx catheter tomorrow. (3) Acute exacerbation of CHF (congestive heart failure) Current Visit: Yes Status: Acute Assessment and plan: Currently on med management. ASA on hold. Qualifiers: Congestive heart failure type: diastolic Qualified Code(s): I50.33 - Acute on chronic diastolic (congestive) heart failure (4) Pneumonia Current Visit: Yes Status: Acute Assessment and plan: Completing abx therapy. Qualifiers: Pneumonia type: due to unspecified organism Laterality: bilateral Lung location: unspecified part of lung Qualified Code(s): J18.9 - Pneumonia, unspecified organism (5) A-fib Current Visit: No Status: Chronic Assessment and plan: Paroxysmal atrial fibrillation, chronic Rate controlled on current medications and AV paced The previously placed on xarelto, which was held secondary to hemoptysis on admission Qualifiers: Atrial fibrillation type: paroxysmal Qualified Code(s): I48.0 - Paroxysmal atrial fibrillation (6) Diabetes mellitus Current Visit: No Status: Chronic Assessment and plan: DM2 in good control at this time Qualifiers: Diabetes mellitus type: type 2 Diabetes mellitus complication status: without complication Diabetes mellitus fdc insulin use: without intermission coordinator use Qualified Code(s): E11.9 - Type 2 diabetes mellitus without complications (7) Hypertension Current Visit: No Status: Chronic Assessment and plan: Hypertension is moderately managed on current medications CTA demonstrated a 4.0 x 4.0 cm aneurysm of the thoracic ascending aorta Blood pressure better controlled. Qualifiers: Hypertension type: essential hypertension Qualified Code(s): I10 - Essential (primary) hypertension (8) Thoracic aortic aneurysm, without rupture Current Visit: Yes Status: Acute Assessment and plan: BP control. - Subjective Interval history: Ms Avina is currently admitted for acute hypoxic resp failure due to malignant pleural effusion. She remains moderate to high risk due to potential for worsening resp status. Ms Avina is resting at this time. No fever or chills. Just got Xanax. Still with moderate dyspnea but pain OK. - Constitutional Vitals: Temp Pulse Resp BP Pulse Ox 98.2 F 80 17 128/57 94 07/25/17 11:00 07/25/17 11:00 07/25/17 15:41 07/25/17 11:00 07/25/17 15:41 General appearance: Present: mild distress, A&O X 3, underweight, answers questions appropriately - Head Head exam: Present: normocephalic - ENT ENT exam: Present: mucous membranes moist - Respiratory Respiratory exam: Present: decreased breath sounds - Cardiovascular Cardiovascular exam: Present: RRR. Absent: tachycardia - GI/Abdominal GI/Abdominal exam: Present: soft. Absent: tenderness - Extremities Exam Extremities exam: Present: warm. Absent: tenderness - Neurological Exam Neurological exam: Present: alert, oriented X3 - Skin Skin exam: Present: warm. Absent: rash Internal Medicine: Result - Labs CBC & Chem 7: 07/25/17 07:39 07/25/17 07:39 Labs: Short CBC 07/25/17 Range/Units 07:39 WBC 14.1 H (4.3-11.1) K/mcL Hgb 14.4 (11.5-15.4) g/dL Hct 43.6 (35.3-44.9) % Plt Count 196 (140-400) K/mcL BMP 07/25/17 07:39 Sodium 131 L Potassium 4.9 H Chloride 100 Carbon Dioxide 23 BUN 20 Creatinine 0.77 Glucose 170 H Calcium 9.5 - ABG Interpretation ABG results: PT/INR, D-dimer PT 12.0 Seconds (9.4-12.1) 07/25/17 08:59 D-Dimer 3568 ng/mLFEU (0-500) H 07/21/17 04:46 - VTE Documentation of Mechanical Device: Intermittent pneumatic compression device Consult Discharge Plan - Plan Referrals: Saurabh Lane MD [Primary Care Provider] - 08/02/17 10:00 am
[2017-07-25] MEDS: Latanoprost 2.5 ML BOTTLE RIGHT EYE SCH (22:01)
[2017-07-26] MEDS: *HR* Morphine 2 MG/ML SYRINGE IVP PRN ×4 (00:18→22:19)
[2017-07-26] MEDS: Azithromycin 250 MG TABLET PO SCH (01:21)
[2017-07-26] MEDS ORDERED: ALPRAZolam 0.5 MG TABLET PO ONE (02:40)
[2017-07-26 03:59] LABS: Hematocrit 43.5 % (35.3-44.9); Hemoglobin 14.3 g/dL (11.5-15.4); Mean Corpuscular HGB Conc 32.9 g/dL (31.6-35.5); Mean Corpuscular Hemoglobin 28.9 pg (28.0-33.3); Mean Corpuscular Volume 88.1 fL (83.0-100.0); Mean Platelet Volume 9.8 fL (9.4-12.4); Platelet Count 199 K/mcL (140-400); Red Blood Count 4.94 M/mcL (3.82-4.97); Red Cell Distribution Width 12.8 % (11.5-14.5)
[2017-07-26 04:11] LABS: BUN/Creatinine Ratio 33 (6-26); Blood Urea Nitrogen 26 mg/dL (7-20); Calcium 9.4 mg/dL (8.6-10.8); Carbon Dioxide 20 mEq/L (19-29); Chloride 99 mEq/L (98-109); Glucose 168 mg/dL (70-99); Osmolality,Calculated 279 (280-300); Potassium 5.1 mEq/L (3.5-4.5); Sodium 130 mEq/L (136-145); eGFR For African Americans > 60 (> 60); eGFR For Non-African Americans > 60 (> 60)
[2017-07-26] MEDS: Insulin LISPRO 300 UNITS/3 ML VIAL SQ SCH ×4 (08:43→21:18)
--- NOTE | 2017-07-26 08:47 | Pulmonology Progress Note ---
Date of Encounter: 07/26/17 Time of Encounter: 07:30 Assessment and Plan (1) Metastatic adenocarcinoma Current Visit: Yes Status: Acute Patient is not stable for bronchoscopy because of her shortness of breath and her code status is DNI. I explained this to family at the bedside. When stable enough then we consider it. (2) Malignant pleural effusion Current Visit: Yes Status: Acute I will plan for thoracentesis/Pleurx pleural catheter placement to give her some relief. I have explained to her all risks, alternatives and benefit of the procedure. Subjective Principal diagnosis: Metastatic Adenocarcinoma Interval history: Patient have worsening of dyspnea and she felt better after thoracentesis. Objective PUL Vital signs: Last Vital Signs Temp 97.8 F 07/26/17 07:02 Pulse 79 07/26/17 07:02 Resp 15 07/26/17 07:02 BP 149/62 07/26/17 07:02 Pulse Ox 93 07/26/17 07:02 General appearance: appears uncomfortable ENT: oropharynx dry Neck: supple Effort: mildly labored Auscultation: bilateral: diminished breath sounds Percussion: bilateral: dull Cardiovascular: regular rate and rhythm Gastrointestinal: normoactive bowel sounds Extremities: no cyanosis normal mental status mood appropriate Results - Laboratory Findings CBC and BMP: 07/26/17 03:44 07/26/17 03:44 PT/INR, D-dimer PT 12.0 Seconds (9.4-12.1) 07/25/17 08:59 D-Dimer 3568 ng/mLFEU (0-500) H 07/21/17 04:46 Abnormal lab findings: Abnormal lab results WBC 14.7 K/mcL (4.3-11.1) H 07/26/17 03:44 Monocytes # 1.4 K/mcL (0.0-1.3) H 07/24/17 05:31 Nucleated RBCs/100 WBC 0.2 /100 WBC (0) H 07/24/17 05:31 Hypersegmented Neuts Present (Not Present) A 07/23/17 03:38 Toxic Granulation Present (Not Present) A 07/23/17 03:38 Large Platelets Present (Not Present) A 07/23/17 03:38 D-Dimer 3568 ng/mLFEU (0-500) H 07/21/17 04:46 Sodium 130 mEq/L (136-145) L 07/26/17 03:44 Potassium 5.1 mEq/L (3.5-4.5) H 07/26/17 03:44 BUN 26 mg/dL (7-20) H 07/26/17 03:44 BUN/Creatinine Ratio 33 (6-26) H 07/26/17 03:44 Glucose 168 mg/dL (70-99) H 07/26/17 03:44 POC Glucose 114 (58-89) H 07/24/17 20:05 Calculated Osmolality 279 (280-300) L 07/26/17 03:44 Lactate Dehydrogenase 535 Units/L (159-327) H 07/21/17 04:46 B-Natriuretic Peptide 121 pg/mL (0-100) H 07/20/17 17:46 Albumin 3.1 g/dL (3.5-5.0) L 07/22/17 04:39 Albumin/Globulin Ratio 0.9 (1.1-2.2) L 07/22/17 04:39 Pleural Appearance Bloody (Clear) A 07/21/17 13:40 Pleural RBC 0.255 M/mcL (0.000-0.002) H 07/21/17 13:40 Pleural Tot Nuc Cell 1292 TNC/mcL (0-1000) H 07/21/17 13:40 - Microbiology Findings Microbiology Findings: Microbiology, Last 48 Hours 07/25/17 13:43 Sputum Culture - Preliminary Sputum 07/21/17 13:40 Body Fluid Culture - Final Pleural Fluid - Clinical Findings Intake & Output: Intake & Output 07/25/17 07/26/17 07/26/17 23:59 07:59 15:59 Intake Total 0 / 0 Output Total 0 / 0 Balance 0 / 0 Weight 66.4 kg - VTE Documentation of Mechanical Device: Intermittent pneumatic compression device Consult Discharge Plan - Plan Referrals: Saurabh Lane MD [Primary Care Provider] - 08/02/17 10:00 am
[2017-07-26] MEDS: Multivit/Ca/Min/Fe/FA 1 TAB TABLET PO SCH (08:50)
[2017-07-26] MEDS: Lisinopril 20 MG TABLET PO SCH (08:52)
[2017-07-26] MEDS: amLODIPine 5 MG TABLET PO SCH ×3 (08:52→21:17)
[2017-07-26] MEDS: Diltiazem SR (12hr) 60 MG CAPSULE PO SCH ×2 (08:52→21:17)
[2017-07-26] MEDS: Dorzolamide/Timolol OPTH 10 ML BOTTLE RIGHT EYE SCH ×2 (09:01→21:18)
--- NOTE | 2017-07-26 10:36 | Anesthesia Evaluation PreOp ---
Date of Encounter: 07/26/17 - Past History Planned Operation: EBUS Cardiac History: CHF, HTN, Hyperlipidemia, Arrhythmia (paroxysmal A-Fib), Pacemaker/ICD, Other (thoracic aortic aneurysm) Pulmonary History: Other (acute respiratory failure/pneumonia) Other Medical History: Diabetes Type II Anesthesia History: Past Anesthesia Alcohol Use: none Drug use: none Medications and Allergies ALPRAZolam [Xanax 0.5 MG Tablet] 0.5 mg PO BID PRN 07/24/16 [History] Amlodipine Besylate [Amlodipine Besylate] 2.5 mg PO BID 07/24/16 [History] Brimonidine 0.2% [Alphagan] 1 drop BOTH EYES BID 07/24/16 [History] Calcium Carbonate [Calcium] 600 mg PO BID 07/24/16 [History] Denosumab [Prolia (For Outpatient Infusion)] 60 mg SQ [id number] 07/24/16 [History ] Lisinopril [Zestril] 40 mg PO DAILY 07/24/16 [History] Multivit-Min/FA/Lycopen/Lutein [Adults 50+ Multivitamin Tablet] 1 each PO DAILY 07/24/16 [History] Omeprazole 20 mg PO DAILY PRN 07/24/16 [History] Potassium Chloride [Klor-Con] 20 meq PO DAILY 07/24/16 [History] Rivaroxaban [Xarelto] 20 mg PO QPM 07/24/16 [History] hydroCHLOROthiazide [Hydrochlorothiazide] 25 mg PO DAILY 07/24/16 [History] Diltiazem HCl [Diltiazem 12Hr ER] 120 mg PO BID 07/20/17 [History] Dorzolamide/Timolol [Cosopt] 1 drop OP BID 07/20/17 [History] Latanoprost [Xalatan] 1 drop OP HS 07/20/17 [History] Promethazine/Phenyleph/Codeine [Promethazine Vc-Codeine Syrup] 5 ml PO Q6H PRN 07/20/17 [History] Simvastatin [Zocor] 10 mg PO HS 07/20/17 [History] 3 Allergy/AdvReac Type Severity Reaction Status Date / Time aspartame AdvReac Migraine Verified 07/20/17 19:44 - Meds/Allergy Pre-op Review Medications Reviewed: Yes Allergies Reviewed: Yes Beta Blockers on Current Med List: No Anesthesia Results - Labs 07/26/17 03:44 07/26/17 03:44 - Imaging EKG: report reviewed (06/21/2017 ELECTRONIC VENTRICULAR PACEMAKER ABNORMAL RHYTHM ECG) Additional studies: 07/21/2017 Echo Impressions: LVEF 60%. Indeterminate diastolic function. Normal right ventricular structure and function. Mild tricuspid regurgitation. Moderate pulmonary hypertension. A pleural effusion is present. 03/31/2016 Stress Impression: There is a small to medium sized, mild intensity fixed perfusion defect involving the apex and surrounding apical hazel. Wall motion is abnormal in this area. 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 No evidence for ischemia. Pharmacologic ECG was non diagnostic for ischemia due to baseline paced rhythm. No arrhythmias noted during stress. Gated EF = 62%. Anesthesia Exam Vital Signs/O2 Sat/Glucose, Most Recent Temp Pulse Resp BP Pulse Ox 97.8 F 81 16 149/62 92 07/26/17 07:02 07/26/17 09:49 07/26/17 09:49 07/26/17 09:49 07/26/17 09:49 Blood Glucose* 176 Height: 5'3''/1.6 m Weight: 146 lbs/66.4 kg NPO (# of Hours): 8 Pain Scale: 0 Pain Scale Used: Numeric (1 - 10) Anesthesia Assess/Plan ASA Score: 4 Modified Lucy Scale for Level of Consciousness: Cooperative, oriented, and tranquil Anesthetic Plan: General Monitoring Plan: Standard Monitors Recovery Plan: PACU
--- NOTE | 2017-07-26 10:58 | Palliative - Consult Note ---
Date of Encounter: 07/26/17 Time of Encounter: 10:30 - Assessment and Plan (1) Dyspnea Current Visit: No Status: Acute Assessment and plan: Patient s/p pleurx catheter insertion to left lung. Tolerated procedure well. Patient with malignant pleural effusions. Pulmonology plan to do bronchoscopy and right thoracentesis is patient is able to tolerate tomorrow. HOB up, supplemental O2, Duonebs, morphine for dyspnea and comfort. Qualifiers: Dyspnea type: unspecified Qualified Code(s): R06.00 - Dyspnea, unspecified (2) Anxiety Current Visit: No Status: Acute Assessment and plan: Xanax PRN. Used 2 doses in past 24 hrs to assist with anxiety induced by dyspnea. Provide support and educate on breathing techniques. Morphine to assist with dyspnea. (3) Goals of care, counseling/discussion Current Visit: Yes Status: Acute Assessment and plan: Patients daughter Kellie is at bedside. She is very nice and aware of patients current POC. Patient has 3 adult children and Kellie is primary caregiver and has assist from other siblings. Acute goal is to have Bronchoscopy to evaluate metastatic adenocarcinoma found in pleural fluid. I reviewed testing to date and results of diagnostics. Kellie is aware that prognosis is guarded and is taking things one day at a time. I assured her that the palliative care team would provide support and assist with planning discharge needs once results of testing are complete. Discussed focus on assisting patient with comfort related to her breathing and anxiety. Patient is DNRCC-A, DNI for now. We will continue to follow. (4) Malignant pleural effusion Current Visit: Yes Status: Acute Assessment and plan: S/P left pleurx catheter placement. Supplemental O2 (5) Metastatic adenocarcinoma Current Visit: Yes Status: Acute Assessment and plan: Oncology following (6) Pneumonia Current Visit: Yes Status: Acute Assessment and plan: Zithromax per hospitalist Qualifiers: Pneumonia type: due to unspecified organism Laterality: bilateral Lung location: unspecified part of lung Qualified Code(s): J18.9 - Pneumonia, unspecified organism (7) Thoracic aortic aneurysm, without rupture Current Visit: Yes Status: Acute Assessment and plan: per hospitalist. Lopressor added for B/P control Palliative-CN HPI - Data of Consult Patient: known to practice within the last 3 years Consult date: 07/26/17 Requesting Physician: Sanjeev Correa DO Primary Care Provider: Saurabh Lane MD - Consult Narrative Palliative Care/Comfort Measures: Palliative care Reason for consult: Goals of Care History of present illness: Ms. Avina is a 81 year old female admitted from home with shortness of breath and hemoptysis. History includes: Breast cancer, CHF, DM, HTN, A-fib, thoracic aneurysm, pacermaker/AICD, past smoker and recent pneumonia. Upon this consult, the patient has just returned from having a left sided thoracentesis with removal of 800 ml of fluid and placement of Left pleurx catheter. The patient reports feeling sleepy but overall breathing better. The patient was diagnosed in 09/2013 with left breast cancer and had a lumpectomy in 10/2013 followed by radiation therapy. Oncology is following this admit for malignant adenocarcinoma in pleural fluid. Pulmonology to evaluate lung as primary source. The patient lives in her own home and is cared for by her family. Her daughter/ROBERT Hopkins is at bedside and she reports being a nurse. The patient underwent a thorcentesis on 07/20 with removal of 800 ml from the left lung. Patient with malignant pleural effusions and plan is for Bronchoscopy and Right side thoracentesis per Pulmonology tomorrow if patient is able to tolerate. This palliative care consult is for goals of care discussion. CC: Sanjeev Correa DO Past Med Surg Social Fam HX - Past Medical History Source: patient, old records reviewed, obtained from family, nursing notes reviewed Medical history: atrial fibrillation, cancer, CHF, diabetes, hyperlipidemia, hypertension, osteoporosis Psychiatric history: no psych history - Past Surgical History Surgical History: pacemaker/AICD - Social History Smoking Status: Former smoker (quit over 45 years ago, per daughter) Smokeless Tobacco Status: No Alcohol use: none Drug use: none Occupational status: retired Current living situation: Home, With Family Activity Level: Uses cane/walker Recent Out of Country Travel Within the Last 8 Weeks: No Exposure or Possible Exposure to Illness During Travel: No - Family History Father Living Status: Age at : 29 Cause of : Brain tumor Mother Living Status: Age at : 72 Cause of : Stroke, heart disease Medications and Allergies ALPRAZolam [Xanax 0.5 MG Tablet] 0.5 mg PO BID PRN 07/24/16 [History] Amlodipine Besylate [Amlodipine Besylate] 2.5 mg PO BID 07/24/16 [History] Brimonidine 0.2% [Alphagan] 1 drop BOTH EYES BID 07/24/16 [History] Calcium Carbonate [Calcium] 600 mg PO BID 07/24/16 [History] Denosumab [Prolia (For Outpatient Infusion)] 60 mg SQ [id number] 07/24/16 [History ] Lisinopril [Zestril] 40 mg PO DAILY 07/24/16 [History] Multivit-Min/FA/Lycopen/Lutein [Adults 50+ Multivitamin Tablet] 1 each PO DAILY 07/24/16 [History] Omeprazole 20 mg PO DAILY PRN 07/24/16 [History] Potassium Chloride [Klor-Con] 20 meq PO DAILY 07/24/16 [History] Rivaroxaban [Xarelto] 20 mg PO QPM 07/24/16 [History] hydroCHLOROthiazide [Hydrochlorothiazide] 25 mg PO DAILY 07/24/16 [History] Diltiazem HCl [Diltiazem 12Hr ER] 120 mg PO BID 07/20/17 [History] Dorzolamide/Timolol [Cosopt] 1 drop OP BID 07/20/17 [History] Latanoprost [Xalatan] 1 drop OP HS 07/20/17 [History] Promethazine/Phenyleph/Codeine [Promethazine Vc-Codeine Syrup] 5 ml PO Q6H PRN 07/20/17 [History] Simvastatin [Zocor] 10 mg PO HS 07/20/17 [History] 3 Allergy/AdvReac Type Severity Reaction Status Date / Time aspartame AdvReac Migraine Verified 07/20/17 19:44 All systems: reviewed and no additional remarkable complaints except as stated ( shortness of breath, exertional dyspnea, hemoptysis, weakness) - Constitutional Constitutional ROS PAL: fatigue - EENT Eyes: requires corrective lenses - Cardiovascular Cardiovascular ROS: orthopnea - Respiratory Respiratory: cough, dyspnea, hemoptysis - Genitourinary Palliative ROS female: urinary frequency - Musculoskeletal Musculoskeletal ROS IM: muscle weakness - Neurological Neurological ROS: weakness - Endocrine Endocrine IM: as per [facility] Palliative Care-Exam - Constitutional Vitals: Temp Pulse Resp BP Pulse Ox 97.8 F 81 16 149/62 92 07/26/17 07:02 07/26/17 09:49 07/26/17 09:49 07/26/17 09:49 07/26/17 09:49 General appearance: Present: cooperative, no acute distress - Head Head Exam: Present: atraumatic, normal inspection - Eye Eye exam: Present: PERRL Pupils: Present: PERRL - ENT ENT exam: Present: mucous membranes moist - Expanded ENT Exam Mouth Exam: Present: moist - Expanded Respiratory Exam Location: decreased breath sounds: Left, Right, Lower - Cardiovascular Cardiovascular exam: Present: RRR, +S1, +S2 - Expanded Cardiovascular Exam Peripheral pulses: 1+: Femoral (L) PM, Femoral (R) PM, Posterior Tibialis (L), Posterior Tibialis (R), 2+: Carotid (L) PM, Carotid (R) PM, Radial (L), Radial ( R), Dorsalis Pedis (L) PM, Dorsalis Pedis (R) PM - GI/Abdominal Exam GI/Abdominal exam: Present: normal bowel sounds, soft - Rectal Rectal exam: Present: deferred - Expanded Upper Extremities Exam Upper Arm exam: Present: full ROM Forearm wrist exam: Present: full ROM - Neurological Exam Neurological exam: Present: alert, oriented X3 - Expanded Neurological Exam Coma Scale Eye Opening: Spontaneous Coma Scale Motor Response: Obeys Commands Coma Scale Verbal Response: Oriented Coma Scale Total: 15 - Psychiatric Psychiatric exam: Present: normal affect - Skin Skin exam: Present: pallor, warm Internal Medicine - CN: Reslt - Labs CBC & Chem 7: 07/26/17 03:44 07/26/17 03:44 Labs: Short CBC 07/26/17 Range/Units 03:44 WBC 14.7 H (4.3-11.1) K/mcL Hgb 14.3 (11.5-15.4) g/dL Hct 43.5 (35.3-44.9) % Plt Count 199 (140-400) K/mcL BMP 07/26/17 03:44 Sodium 130 L Potassium 5.1 H Chloride 99 Carbon Dioxide 20 BUN 26 H Creatinine 0.80 Glucose 168 H Calcium 9.4 - ABG Interpretation ABG results: PT/INR, D-dimer PT 12.0 Seconds (9.4-12.1) 07/25/17 08:59 D-Dimer 3568 ng/mLFEU (0-500) H 07/21/17 04:46 Consult Discharge Plan - Plan Referrals: Saurabh Lane MD [Primary Care Provider] - 08/02/17 10:00 am Palliative Quality Palliative Quality: Screen for Code Status: Yes, Screen for Goals of Care: Yes, Screen for Pain: Yes, If Pain Regimen Started, Initiate Bowel Regimen: Yes, Screen for Nausea/Vomitting: Yes Code Status: 07/20/17 21:59 Resuscitation Status: Active [RES] Routine Comment: Resuscitation Status: [id number]
--- NOTE | 2017-07-26 11:12 | Internal Med Progress Note ---
<Karena Iraheta - Last Filed: 07/26/17 17:02> Date of Encounter: 07/26/17 Time of Encounter: 10:30 - Assessment and plan (1) Acute respiratory failure with hypoxia Current Visit: Yes Status: Acute Assessment and plan: - Likely secondary to malignant pleural effusion and pneumonia. - Continue supplemental oxygen. Maintaining saturation at about 93% currently. (2) Malignant pleural effusion Current Visit: Yes Status: Acute Assessment and plan: - Moderate bilateral pleural effusion on CT chest. - Cytology for the hemorrhagic right pleural fluid suggests metastatic adenocarcinoma. - Oncology on board and thinks it's less likely to be breast cancer in origin ( patient has history of breast cancer) and cannot completely rule out lung primary. - Pulmology on board. Patient had left PleurX catheter inserted today. The plan is to have right PleurX catheter insertion and possible bronchoscopy tomorrow. NPO after midnight. - Palliative care is consulted for assistance to provide patient comfort. Patient is DNR-CCA-DNI. (3) Pneumonia Current Visit: Yes Status: Acute Assessment and plan: - Patient had finished 7-day course of antibiotics (ceftriaxone and azithromycin ). Qualifiers: Pneumonia type: due to unspecified organism Laterality: bilateral Lung location: unspecified part of lung Qualified Code(s): J18.9 - Pneumonia, unspecified organism (4) A-fib Current Visit: No Status: Chronic Assessment and plan: - Chronic paroxysmal atrial fibrillation, chronic - Currently rate-controlled with Cardizem and AV paced - Was on Xarelto but that was held on admission secondary to hemoptysis. Qualifiers: Atrial fibrillation type: paroxysmal Qualified Code(s): I48.0 - Paroxysmal atrial fibrillation (5) Diabetes mellitus Current Visit: No Status: Chronic Assessment and plan: - Insulin sliding scale with routine glucose monitoring. Qualifiers: Diabetes mellitus type: type 2 Diabetes mellitus complication status: without complication Diabetes mellitus fdc insulin use: without supervisor intermediates use Qualified Code(s): E11.9 - Type 2 diabetes mellitus without complications (6) Hypertension Current Visit: No Status: Chronic Assessment and plan: - BP within normal range. - Continue current antihypertensive regimen. Qualifiers: Hypertension type: essential hypertension Qualified Code(s): I10 - Essential (primary) hypertension (7) Thoracic aortic aneurysm, without rupture Current Visit: Yes Status: Acute Assessment and plan: - CTA showed a 4.0 x 4.0 cm aneurysm of the thoracic ascending aorta. - Subjective Interval history: Patient was seen and examined this morning after patient came back from left PleurX catheter insertion. Patient reports breathing slight better compared to before the procedure. Patient complains of diffuse abdominal pain but denies chest pain, nausea, vomiting, diarrhea, fever, chills. - Constitutional Vitals: Temp Pulse Resp BP Pulse Ox 97.8 F 81 16 149/62 92 07/26/17 07:02 07/26/17 09:49 07/26/17 09:49 07/26/17 09:49 07/26/17 09:49 General appearance: Present: mild distress, A&O X 3, underweight, answers questions appropriately - Head Head exam: Present: atraumatic, normocephalic - Eye Eye exam: Present: PERRL, conjuntiva pink, sclera anicteric - ENT ENT exam: Present: mucous membranes dry - Neck Neck exam general surgery: Present: normal inspection, supple, trachea midline - Respiratory Respiratory exam: Present: decreased breath sounds. Absent: rales, rhonchi, wheezes - Cardiovascular Cardiovascular exam: Present: RRR, +S1, +S2 - GI/Abdominal GI/Abdominal exam: Present: diminished bowel sounds, soft, tenderness (Diffuse) - Extremities Exam Extremities exam: Present: warm, radial pulses palpable and symmetrical. Absent : cyanotic - Neurological Exam Neurological exam: Present: alert, no focal deficits. Absent: facial droop, speech deficit - Skin Skin exam: Present: dry, warm Internal Medicine: Result - Labs CBC & Chem 7: 07/26/17 03:44 07/26/17 03:44 Labs: Short CBC 07/26/17 Range/Units 03:44 WBC 14.7 H (4.3-11.1) K/mcL Hgb 14.3 (11.5-15.4) g/dL Hct 43.5 (35.3-44.9) % Plt Count 199 (140-400) K/mcL BMP 07/26/17 03:44 Sodium 130 L Potassium 5.1 H Chloride 99 Carbon Dioxide 20 BUN 26 H Creatinine 0.80 Glucose 168 H Calcium 9.4 - ABG Interpretation ABG results: PT/INR, D-dimer PT 12.0 Seconds (9.4-12.1) 07/25/17 08:59 D-Dimer 3568 ng/mLFEU (0-500) H 07/21/17 04:46 - Impressions Impressions Chest X-Ray 07/26/17 10:24 IMPRESSION: 1. Placement a left-sided chest tube with a persistent left pleural effusion and consolidation in the left lung base. There is now a small left apical pneumothorax. 2. Larger right pleural effusion with associated consolidation in the right lung base. This may be related to atelectasis versus pneumonia. 3. Worsening pulmonary edema. D/ / Lopez Ballard MD / Lopez Ballard MD Interpreting Provider: Lopez Ballard MD - VTE Documentation of Mechanical Device: Intermittent pneumatic compression device Consult Discharge Plan - Plan Referrals: Saurabh Lane MD [Primary Care Provider] - 08/02/17 10:00 am <Sanjeev Correa - Last Filed: 07/26/17 17:37> Date of Encounter: 07/26/17 - Assessment and plan (1) Acute respiratory failure with hypoxia Current Visit: Yes Status: Acute (2) Malignant pleural effusion Current Visit: Yes Status: Acute (3) Acute exacerbation of CHF (congestive heart failure) Current Visit: Yes Status: Acute Qualifiers: Congestive heart failure type: diastolic Qualified Code(s): I50.33 - Acute on chronic diastolic (congestive) heart failure (4) Pneumonia Current Visit: Yes Status: Acute Qualifiers: Pneumonia type: due to unspecified organism Laterality: bilateral Lung location: unspecified part of lung Qualified Code(s): J18.9 - Pneumonia, unspecified organism (5) A-fib Current Visit: No Status: Chronic Qualifiers: Atrial fibrillation type: paroxysmal Qualified Code(s): I48.0 - Paroxysmal atrial fibrillation (6) Diabetes mellitus Current Visit: No Status: Chronic Qualifiers: Diabetes mellitus type: type 2 Diabetes mellitus complication status: without complication Diabetes mellitus fdc insulin use: without fdc use Qualified Code(s): E11.9 - Type 2 diabetes mellitus without complications (7) Hypertension Current Visit: No Status: Chronic Qualifiers: Hypertension type: essential hypertension Qualified Code(s): I10 - Essential (primary) hypertension (8) Thoracic aortic aneurysm, without rupture Current Visit: Yes Status: Acute - Constitutional Vitals: Temp Pulse Resp BP Pulse Ox 97.6 F 89 18 136/73 93 07/26/17 15:41 07/26/17 15:41 07/26/17 16:04 07/26/17 15:41 07/26/17 16:04 Internal Medicine: Result - Labs CBC & Chem 7: 07/26/17 03:44 07/26/17 03:44 Labs: Short CBC 07/26/17 Range/Units 03:44 WBC 14.7 H (4.3-11.1) K/mcL Hgb 14.3 (11.5-15.4) g/dL Hct 43.5 (35.3-44.9) % Plt Count 199 (140-400) K/mcL BMP 07/26/17 03:44 Sodium 130 L Potassium 5.1 H Chloride 99 Carbon Dioxide 20 BUN 26 H Creatinine 0.80 Glucose 168 H Calcium 9.4 - ABG Interpretation ABG results: PT/INR, D-dimer PT 12.0 Seconds (9.4-12.1) 07/25/17 08:59 D-Dimer 3568 ng/mLFEU (0-500) H 07/21/17 04:46 - Impressions Impressions Chest X-Ray 07/26/17 10:24 IMPRESSION: 1. Placement of a left-sided chest tube with a persistent left pleural effusion and consolidation in the left lung base. There is now a small left apical pneumothorax. 2. Larger right pleural effusion with associated consolidation in the right lung base. This may be related to atelectasis versus pneumonia. 3. Worsening pulmonary edema. D/ / 07/26/2017 11:14:37 Lopez Ballard MD / [email or web address] Interpreting Provider: Lopez Ballard MD - Attending Attestation I examined this patient and my medical decision-making was reviewed with the Resident Physician on 07/26/17. I agree with the documented findings, disposition and treatment plan as described except to the extent set forth below. Ms Avina is currently admitted for acute hypoxic resp failure from malignant pleural effusion. She remains moderate to high risk due to potential for worsening resp status. Ms Avina had thoracentesis this AM. To have further intervention tomorrow. Still quite dyspneic. No fever or chills. Cough present. No GI issues. Exam Alert. Mod resp distress Mucus membranes dry Heart reg Decreased breath sounds Abd soft I/P 1. Hypoxia 2. Malignant pleural effusion Further diagnoses and plan as above.
[2017-07-26] MEDS ORDERED: Sennosides/Docusate Sodium TABLET PO PRN (14:16)
[2017-07-26] MEDS: Ipratropium/Albuterol Neb 3 ML IH PRN (16:04)
--- NOTE | 2017-07-26 18:57 | Anesthesia Evaluation PreOp ---
Date of Encounter: 07/26/17 Time of Encounter: 18:55 - Past History Planned Operation: EBUS Cardiac History: CHF, HTN, Hyperlipidemia, Arrhythmia (paroxysmal AFib), Pacemaker/ICD (pacemaker), Other (thoracic aortic aneurysm) Pulmonary History: Other ([place] CA, hilar adenopathy, acute respiratory failure/ pneumonia, pleurx catheter insertion to left lung (07/26/2017). 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 Other Medical History: Diabetes Type II Anesthesia History: No Prior Anesthetic Complications, Past Anesthesia ( pacemaker incertion, pleurex catheter in place) : No Alcohol Use: none Drug use: none Medications and Allergies ALPRAZolam [Xanax 0.5 MG Tablet] 0.5 mg PO BID PRN 07/24/16 [History] Amlodipine Besylate [Amlodipine Besylate] 2.5 mg PO BID 07/24/16 [History] Brimonidine 0.2% [Alphagan] 1 drop BOTH EYES BID 07/24/16 [History] Calcium Carbonate [Calcium] 600 mg PO BID 07/24/16 [History] Denosumab [Prolia (For Outpatient Infusion)] 60 mg SQ [id number] 07/24/16 [History ] Lisinopril [Zestril] 40 mg PO DAILY 07/24/16 [History] Multivit-Min/FA/Lycopen/Lutein [Adults 50+ Multivitamin Tablet] 1 each PO DAILY 07/24/16 [History] Omeprazole 20 mg PO DAILY PRN 07/24/16 [History] Potassium Chloride [Klor-Con] 20 meq PO DAILY 07/24/16 [History] Rivaroxaban [Xarelto] 20 mg PO QPM 07/24/16 [History] hydroCHLOROthiazide [Hydrochlorothiazide] 25 mg PO DAILY 07/24/16 [History] Diltiazem HCl [Diltiazem 12Hr ER] 120 mg PO BID 07/20/17 [History] Dorzolamide/Timolol [Cosopt] 1 drop OP BID 07/20/17 [History] Latanoprost [Xalatan] 1 drop OP HS 07/20/17 [History] Promethazine/Phenyleph/Codeine [Promethazine Vc-Codeine Syrup] 5 ml PO Q6H PRN 07/20/17 [History] Simvastatin [Zocor] 10 mg PO HS 07/20/17 [History] 3 Allergy/AdvReac Type Severity Reaction Status Date / Time aspartame AdvReac Migraine Verified 07/20/17 19:44 - Meds/Allergy Pre-op Review Medications Reviewed: Yes Allergies Reviewed: Yes Beta Blockers on Current Med List: No Anesthesia Results - Labs 07/26/17 03:44 07/26/17 03:44 07/21/2017 Echo Impressions: LVEF 60%. Indeterminate diastolic function. Normal right ventricular structure and function. Mild tricuspid regurgitation. Moderate pulmonary hypertension. A pleural effusion is present. 03/31/2016 Stress Impression: There is a small to medium sized, mild intensity fixed perfusion defect involving the apex and surrounding apical hazel. Wall motion is abnormal in this area. 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 No evidence for ischemia. Pharmacologic ECG was non diagnostic for ischemia due to baseline paced rhythm. No arrhythmias noted during stress. Gated EF = 62%. - Imaging EKG: image reviewed (ELECTRONIC VENTRICULAR PACEMAKER ABNORMAL RHYTHM ECG) Anesthesia Exam O2 Sat Weight 66.4 kg Weight 66.4 kg O2 Sat by Pulse Oximetry 93 O2 Sat by Pulse Oximetry 91 O2 Sat by Pulse Oximetry 95 O2 Sat by Pulse Oximetry 92 O2 Sat by Pulse Oximetry 93 O2 Sat by Pulse Oximetry 93 O2 Sat by Pulse Oximetry 93 O2 Sat by Pulse Oximetry 92 Vital Signs Temp Pulse Resp BP Pulse Ox 97.5 F L 83 22 174/80 97 07/20/17 17:08 07/20/17 17:08 07/20/17 17:08 07/20/17 17:08 07/20/17 17:08 Vital Signs/O2 Sat, Most Current Temp Pulse Resp BP Pulse Ox 98.6 F 80 24 143/63 90 07/26/17 21:12 07/26/17 21:12 07/26/17 21:12 07/26/17 21:12 07/26/17 21:39 Height: 5'3'' Weight: 146# Pain Scale: 0 Pain Scale Used: Numeric (1 - 10) - HEENT Pupil (Motor): Pupils equal, EOMI Mallampati: III Teeth: Normal Oral Opening: Greater than 3 - GRAIN ELEVATOR WORKER LOC: Oriented GRAIN ELEVATOR WORKER Motor: Normal RUE, Normal LUE, Normal RLE, Normal LLE, Normal Face GRAIN ELEVATOR WORKER Sensory: Normal: RUE, LUE, RLE, LLE, Face - Cardiac Rhythm: Regular Murmur: None JVD: No Carotid Bruit: No - Pulmonary Breath Sounds: bilateral Clear Respiratory Effort: Symmetrical Anesthesia Assess/Plan ASA Score: 4 Modified [place] Scale for Level of Consciousness: Cooperative, oriented, and tranquil Anesthetic Plan: General Autologous Blood: Yes Monitoring Plan: Standard Monitors Recovery Plan: PACU
[2017-07-26] MEDS: Acetaminophen 325 MG TABLET PO PRN (21:16)
[2017-07-26] MEDS: Latanoprost 2.5 ML BOTTLE RIGHT EYE SCH (21:17)
[2017-07-26] MEDS: Ondansetron 4 MG/2 ML VIAL IVP PRN (21:17)
[2017-07-27] MEDS: Insulin LISPRO 300 UNITS/3 ML VIAL SQ SCH ×3 (07:45→21:52)
[2017-07-27 08:19] LABS: Hematocrit 46.8 % (35.3-44.9); Hemoglobin 15.3 g/dL (11.5-15.4); Mean Corpuscular HGB Conc 32.7 g/dL (31.6-35.5); Mean Corpuscular Hemoglobin 29.1 pg (28.0-33.3); Mean Corpuscular Volume 89.1 fL (83.0-100.0); Mean Platelet Volume 9.9 fL (9.4-12.4); Platelet Count 246 K/mcL (140-400); Red Blood Count 5.25 M/mcL (3.82-4.97)
[2017-07-27] MEDS: ALPRAZolam 0.5 MG TABLET PO PRN (08:20)
[2017-07-27] MEDS: *HR* Morphine 2 MG/ML SYRINGE IVP PRN ×2 (08:21→13:11)
--- NOTE | 2017-07-27 10:04 | Pulmonology Progress Note ---
<Alexandro Vences - Last Filed: 07/27/17 11:24> Date of Encounter: 07/27/17 Time of Encounter: 09:15 Assessment and Plan (1) Metastatic adenocarcinoma Current Visit: Yes Status: Acute Patient is not stable for bronchoscopy because of her shortness of breath and her code status is DNI. When stable enough then we consider it. (2) Malignant pleural effusion Current Visit: Yes Status: Acute Patient underwent right side thoracentesis this morning without complication. Approximately 750cc grossly bloodly fluid was removed and sent to pathology for cytology. Patient may require right sided Pleurx catheter placement. Patient underwent Left pleurx catheter placement yesterday without complication. Subjective Principal diagnosis: Metastatic Adenocarcinoma Interval history: Ms. Avina is resenting in bed at time of examination, accompanied by her daughter. She says that she is still short of breath, however thoracentesis has been helpful. She does complain of mild left upper quadrant and epigastric pain that is constant and dull. her daughter says that his is chronic, and that she' s complained about it for a long time. The patient did undergo right sided thoracentesis which collected approximately 750ml of grossly bloody fluid. She is currently comfortable. Objective PUL Vital signs: Last Vital Signs Temp 97.9 F 07/27/17 07:00 Pulse 91 07/27/17 07:00 Resp 17 07/27/17 07:00 BP 143/65 07/27/17 07:00 Pulse Ox 94 07/27/17 07:00 General appearance: alert, appears uncomfortable Eyes: nonicteric ENT: oropharynx moist Neck: supple Auscultation: left: diminished breath sounds, bilateral: clear Percussion: bilateral: not dull Cardiovascular: regular rate and rhythm Gastrointestinal: normoactive bowel sounds, tender (LUQ), non-distended Integumentary: normal Extremities: no cyanosis, no edema, no clubbing Musculoskeletal: no deformities normal mental status, non-focal exam mood appropriate, anxious, depressed, tearful Results - Laboratory Findings CBC and BMP: 07/27/17 08:06 07/26/17 03:44 PT/INR, D-dimer PT 12.0 Seconds (9.4-12.1) 07/25/17 08:59 D-Dimer 3568 ng/mLFEU (0-500) H 07/21/17 04:46 Abnormal lab findings: Abnormal lab results WBC 17.9 K/mcL (4.3-11.1) H 07/27/17 08:06 RBC 5.25 M/mcL (3.82-4.97) H 07/27/17 08:06 Hct 46.8 % (35.3-44.9) H 07/27/17 08:06 Monocytes # 1.4 K/mcL (0.0-1.3) H 07/24/17 05:31 Nucleated RBCs/100 WBC 0.2 /100 WBC (0) H 07/24/17 05:31 Hypersegmented Neuts Present (Not Present) A 07/23/17 03:38 Toxic Granulation Present (Not Present) A 07/23/17 03:38 Large Platelets Present (Not Present) A 07/23/17 03:38 D-Dimer 3568 ng/mLFEU (0-500) H 07/21/17 04:46 Sodium 130 mEq/L (136-145) L 07/26/17 03:44 Potassium 5.1 mEq/L (3.5-4.5) H 07/26/17 03:44 BUN 26 mg/dL (7-20) H 07/26/17 03:44 BUN/Creatinine Ratio 33 (6-26) H 07/26/17 03:44 Glucose 168 mg/dL (70-99) H 07/26/17 03:44 POC Glucose 149 (58-89) H 07/27/17 00:38 Calculated Osmolality 279 (280-300) L 07/26/17 03:44 Lactate Dehydrogenase 535 Units/L (159-327) H 07/21/17 04:46 B-Natriuretic Peptide 121 pg/mL (0-100) H 07/20/17 17:46 Albumin 3.1 g/dL (3.5-5.0) L 07/22/17 04:39 Albumin/Globulin Ratio 0.9 (1.1-2.2) L 07/22/17 04:39 Pleural Appearance Bloody (Clear) A 07/21/17 13:40 Pleural RBC 0.255 M/mcL (0.000-0.002) H 07/21/17 13:40 Pleural Tot Nuc Cell 1292 TNC/mcL (0-1000) H 07/21/17 13:40 - Microbiology Findings Microbiology Findings: Microbiology, Last 48 Hours 07/25/17 13:43 Sputum Culture - Preliminary Sputum - Clinical Findings Intake & Output: Intake & Output 07/26/17 07/27/17 07/27/17 23:59 07:59 15:59 Intake Total 0 / 0 0 / 0 Output Total 190 / 190 95 / 95 Balance -190 / -190 -95 / -95 Weight 66.2 kg - VTE Documentation of Mechanical Device: Intermittent pneumatic compression device Consult Discharge Plan - Plan Referrals: Saurabh Lane MD [Primary Care Provider] - 08/02/17 10:00 am <Raheem Covington - Last Filed: 07/27/17 16:03> Date of Encounter: 07/27/17 Assessment and Plan (1) Metastatic adenocarcinoma Current Visit: Yes Status: Acute (2) Malignant pleural effusion Current Visit: Yes Status: Acute Objective PUL Vital signs: Last Vital Signs Temp 97.9 F 07/27/17 07:00 Pulse 91 07/27/17 07:00 Resp 17 07/27/17 07:00 BP 143/65 07/27/17 07:00 Pulse Ox 94 07/27/17 07:00 Results - Laboratory Findings CBC and BMP: 07/27/17 08:06 07/26/17 03:44 PT/INR, D-dimer PT 12.0 Seconds (9.4-12.1) 07/25/17 08:59 D-Dimer 3568 ng/mLFEU (0-500) H 07/21/17 04:46 Abnormal lab findings: Abnormal lab results WBC 17.9 K/mcL (4.3-11.1) H 07/27/17 08:06 RBC 5.25 M/mcL (3.82-4.97) H 07/27/17 08:06 Hct 46.8 % (35.3-44.9) H 07/27/17 08:06 Monocytes # 1.4 K/mcL (0.0-1.3) H 07/24/17 05:31 Nucleated RBCs/100 WBC 0.2 /100 WBC (0) H 07/24/17 05:31 Hypersegmented Neuts Present (Not Present) A 07/23/17 03:38 Toxic Granulation Present (Not Present) A 07/23/17 03:38 Large Platelets Present (Not Present) A 07/23/17 03:38 D-Dimer 3568 ng/mLFEU (0-500) H 07/21/17 04:46 Sodium 130 mEq/L (136-145) L 07/26/17 03:44 Potassium 5.1 mEq/L (3.5-4.5) H 07/26/17 03:44 BUN 26 mg/dL (7-20) H 07/26/17 03:44 BUN/Creatinine Ratio 33 (6-26) H 07/26/17 03:44 Glucose 168 mg/dL (70-99) H 07/26/17 03:44 POC Glucose 149 (58-89) H 07/27/17 00:38 Calculated Osmolality 279 (280-300) L 07/26/17 03:44 Lactate Dehydrogenase 535 Units/L (159-327) H 07/21/17 04:46 B-Natriuretic Peptide 121 pg/mL (0-100) H 07/20/17 17:46 Albumin 3.1 g/dL (3.5-5.0) L 07/22/17 04:39 Albumin/Globulin Ratio 0.9 (1.1-2.2) L 07/22/17 04:39 Pleural Appearance Bloody (Clear) A 07/21/17 13:40 Pleural RBC 0.255 M/mcL (0.000-0.002) H 07/21/17 13:40 Pleural Tot Nuc Cell 1292 TNC/mcL (0-1000) H 07/21/17 13:40 - Microbiology Findings Microbiology Findings: Microbiology, Last 48 Hours 07/25/17 13:43 Sputum Culture - Preliminary Sputum Yeast Species - Clinical Findings Intake & Output: Intake & Output 07/27/17 07/27/17 07/27/17 07:59 15:59 23:59 Intake Total 0 / 0 Output Total 95 / 95 Balance -95 / -95 Weight 66.2 kg - Attending Attestation I examined this patient and my medical decision-making was reviewed with the Resident Physician. I agree with the documented findings, disposition and treatment plan as described except to the extent set forth below. Patient seen and examined. Labs, radiology, chart personally reviewed. 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 I suspect she might need a Pleurx pleural catheter in the right side as well. Overall prognosis is very poor. Family decided against bronchoscopy which is reasonable. Cardiovascular: stable Please call for any questions.
--- NOTE | 2017-07-27 10:31 | Palliative Progress Note ---
Date of Encounter: 07/27/17 Time of Encounter: 09:40 - Assessment and plan (1) Shortness of breath at rest Current Visit: Yes Status: Acute Assessment and plan: Left pleurx placed yesterday, thoracentesis on right today with 800ml removed. Monitor. She does have low dose Morphine which may assist with her shortness of breath. (2) Anxiety Current Visit: No Status: Acute Assessment and plan: Continue Xanax 0.5mg bid and monitor. This may eventually need increased to tid. Daughter states the bid is holding her for now. Monitor (3) Goals of care, counseling/discussion Current Visit: Yes Status: Acute Assessment and plan: Spoke with daughter at length re: goals of care. She states her mother definitely values quality over quantity, and has discussed with family for quite some time. Kellie states her mother is frail and not sure what she could tolerate in the form of cancer treatment. Oncology has been consulted and have seen pt a few days back - unsure if they will follow-up here or will have patient follow up as outpatient. Daughter states that they desire [facility] for homecare. We did discuss that if she declines or is not eligible for treatment that I would encourage getting hospice involved early on to get them the support they need at home. The family has had other family members that have had hospice care and is well versed on what they have to offer. Kellie did state that patient's other children may not be on board with hospice. Provided emotional support and will continue to follow. (4) Acute respiratory failure with hypoxia Current Visit: Yes Status: Acute (5) Malignant pleural effusion Current Visit: Yes Status: Acute (6) Metastatic adenocarcinoma Current Visit: Yes Status: Acute - Time Spent With Patient Total time spent is greater than 50% in coordination of care (as documented) at patient's floor/unit and/or counseling patient: 25 - 35 minutes - Subjective Interval history: Patient awake and alert, sitting on side of bed, Dr. Covington in room and preparing for bronchoscopy. Patient c/o intermittent nausea, and chest pain. Appears anxious. States she doesn't feel well. Daughter Kellie here in waiting area. - Constitutional Vitals: Abnormal lab results WBC 17.9 K/mcL (4.3-11.1) H 07/27/17 08:06 RBC 5.25 M/mcL (3.82-4.97) H 07/27/17 08:06 Hct 46.8 % (35.3-44.9) H 07/27/17 08:06 Monocytes # 1.4 K/mcL (0.0-1.3) H 07/24/17 05:31 Nucleated RBCs/100 WBC 0.2 /100 WBC (0) H 07/24/17 05:31 Hypersegmented Neuts Present (Not Present) A 07/23/17 03:38 Toxic Granulation Present (Not Present) A 07/23/17 03:38 Large Platelets Present (Not Present) A 07/23/17 03:38 D-Dimer 3568 ng/mLFEU (0-500) H 07/21/17 04:46 Sodium 130 mEq/L (136-145) L 07/26/17 03:44 Potassium 5.1 mEq/L (3.5-4.5) H 07/26/17 03:44 BUN 26 mg/dL (7-20) H 07/26/17 03:44 BUN/Creatinine Ratio 33 (6-26) H 07/26/17 03:44 Glucose 168 mg/dL (70-99) H 07/26/17 03:44 POC Glucose 149 (58-89) H 07/27/17 00:38 Calculated Osmolality 279 (280-300) L 07/26/17 03:44 Lactate Dehydrogenase 535 Units/L (159-327) H 07/21/17 04:46 B-Natriuretic Peptide 121 pg/mL (0-100) H 07/20/17 17:46 Albumin 3.1 g/dL (3.5-5.0) L 07/22/17 04:39 Albumin/Globulin Ratio 0.9 (1.1-2.2) L 07/22/17 04:39 Pleural Appearance Bloody (Clear) A 07/21/17 13:40 Pleural RBC 0.255 M/mcL (0.000-0.002) H 07/21/17 13:40 Pleural Tot Nuc Cell 1292 TNC/mcL (0-1000) H 07/21/17 13:40 General appearance: Present: no acute distress - Respiratory Respiratory exam: Present: decreased breath sounds, CTAB Additional comments: Left pleurx catheter in place. - Cardiovascular Cardiovascular exam: Present: +S1, +S2 - GI/Abdominal GI/Abdominal exam: Present: normal bowel sounds, soft - Extremities Exam Extremities exam: Present: normal capillary refill, normal inspection - Neurological Exam Neurological exam: Present: alert, oriented X3, strengths equal and symetr throughout - Skin Skin exam: Present: dry, pallor, warm Palliative Quality Palliative Quality: Screen for Code Status: Yes, Screen for Goals of Care: Yes, Screen for Pain: Yes, If Pain Regimen Started, Initiate Bowel Regimen: Yes, Screen for Nausea/Vomitting: Yes Code Status: 07/20/17 21:59 Resuscitation Status: Active [RES] Routine Comment: Resuscitation Status: [id number] - Labs CBC & Chem 7: 07/27/17 08:06 07/26/17 03:44 Labs: Laboratory Results - last 24 hr 07/25/17 07/25/17 07/25/17 08:01 12:05 16:57 WBC RBC Hgb Hct MCV MCH MCHC RDW Plt Count MPV POC Glucose 160 H 160 H 197 H 07/25/17 07/26/17 07/26/17 20:13 05:48 11:54 WBC RBC Hgb Hct MCV MCH MCHC RDW Plt Count MPV POC Glucose 118 H 176 H 249 H 07/26/17 07/26/17 07/27/17 16:45 21:17 00:38 WBC RBC Hgb Hct MCV MCH MCHC RDW Plt Count MPV POC Glucose 123 H 167 H 149 H 07/27/17 08:06 WBC 17.9 H RBC 5.25 H Hgb 15.3 Hct 46.8 H MCV 89.1 MCH 29.1 MCHC 32.7 RDW 13.0 Plt Count 246 MPV 9.9 POC Glucose - Impressions Impressions Chest X-Ray 07/26/17 10:24 IMPRESSION: 1. Placement of a left-sided chest tube with a persistent left pleural effusion and consolidation in the left lung base. There is now a small left apical pneumothorax. 2. Larger right pleural effusion with associated consolidation in the right lung base. This may be related to atelectasis versus pneumonia. 3. Worsening pulmonary edema. D/ / 07/26/2017 11:14:37 Lopez Ballard MD / [place] Interpreting Provider: Lopez Ballard MD Chest X-Ray 07/27/17 06:00 IMPRESSION: Resolved pneumothorax at the left lung apex. Indwelling tunneled chest tube on the left noted. Mild decreased right pleural effusion, and improved aeration in the right upper lobe. D/ / Sanju Campbell MD / Sanju Campbell MD Interpreting Provider: Sanju Campbell MD - ABG Interpretation ABG results: PT/INR, D-dimer PT 12.0 Seconds (9.4-12.1) 07/25/17 08:59 D-Dimer 3568 ng/mLFEU (0-500) H 07/21/17 04:46 Consult Discharge Plan - Plan Referrals: Saurabh Lane MD [Primary Care Provider] - 08/02/17 10:00 am
--- NOTE | 2017-07-27 10:59 | Procedure Note ---
Date of procedure: 07/27/17 Pre-op diagnosis: Malignant pleural effusion and shortness of breath Post-op diagnosis: same Procedure: Diagnostic and therapeutic thoracentesis Medications: Local lidocaine 1% 10 mL No immediate complications After obtaining informed consent, the patient was placed in a sitting position. Using ultrasound, the right hemithorax was examined revealing a moderately sized pleural effusion. The best entry site was marked. The area was prepped in the usual sterile fashion. Fluid was aspirated using a catheter 8 range over 18-gauge needle which was placed in the mid-scapular line. 800 mL of bloody fluid was removed. Fluid was sent for routine pleural analysis. Patient 's condition improved after the procedure. Chest x-ray was ordered for any evidence of pneumothorax or complications. Anesthesia: local Surgeon: Raheem Covington Estimated blood loss (cc): 0.5 Condition: stable
--- NOTE | 2017-07-27 11:42 | Internal Med Progress Note ---
<Karena Iraheta - Last Filed: 07/27/17 16:50> Date of Encounter: 07/27/17 Time of Encounter: 09:00 - Assessment and plan (1) Acute respiratory failure with hypoxia Current Visit: Yes Status: Acute Assessment and plan: - Likely secondary to malignant pleural effusion and pneumonia. - Patient reports breathing better with removal of pleural fluid. - Continue supplemental oxygen. Maintaining saturation at about 94% currently. (2) Malignant pleural effusion Current Visit: Yes Status: Acute Assessment and plan: - Moderate bilateral pleural effusion on CT chest. - Cytology for the hemorrhagic right pleural fluid suggests metastatic adenocarcinoma. - Cytology for the left pleural fluid is pending. - Oncology on board and thinks it's less likely to be breast cancer in origin ( patient has history of breast cancer) and cannot completely rule out lung primary. - Patient had left PleurX catheter inserted yesterday and right thoracentesis this morning. May consider right PleurX catheter insertion per pulmonology - Palliative care on board for assistance to provide patient comfort. Patient is [id number]. (3) Pneumonia Current Visit: Yes Status: Acute Assessment and plan: - Patient had finished 7-day course of antibiotics (ceftriaxone and azithromycin ). Qualifiers: Pneumonia type: due to unspecified organism Laterality: bilateral Lung location: unspecified part of lung Qualified Code(s): J18.9 - Pneumonia, unspecified organism (4) A-fib Current Visit: No Status: Chronic Assessment and plan: - Chronic paroxysmal atrial fibrillation, chronic - Currently rate-controlled with Cardizem and AV paced - Was on Xarelto but that was held on admission secondary to hemoptysis. Qualifiers: Atrial fibrillation type: paroxysmal Qualified Code(s): I48.0 - Paroxysmal atrial fibrillation (5) Diabetes mellitus Current Visit: No Status: Chronic Assessment and plan: - Insulin sliding scale with routine glucose monitoring. Qualifiers: Diabetes mellitus type: type 2 Diabetes mellitus complication status: without complication Diabetes mellitus custodial insulin use: without custodial use Qualified Code(s): E11.9 - Type 2 diabetes mellitus without complications (6) Hypertension Current Visit: No Status: Chronic Assessment and plan: - BP within normal range. - Continue current antihypertensive regimen. Qualifiers: Hypertension type: essential hypertension Qualified Code(s): I10 - Essential (primary) hypertension (7) Thoracic aortic aneurysm, without rupture Current Visit: Yes Status: Acute Assessment and plan: - CTA showed a 4.0 x 4.0 cm aneurysm of the thoracic ascending aorta. - Subjective Interval history: Patient was seen and examined this morning. Patient reports breathing continues to improve. Patient still complains of diffuse abdominal pain and family likes to increase the frequency of Zofran for her nausea. Patient denies fever, chills , chest pain. - Constitutional Vitals: Temp Pulse Resp BP Pulse Ox 97.9 F 91 17 143/65 94 07/27/17 07:00 07/27/17 07:00 07/27/17 07:00 07/27/17 07:00 07/27/17 07:00 General appearance: Present: A&O X 3, no acute distress, underweight - Head Head exam: Present: atraumatic, normocephalic - ENT ENT exam: Present: mucous membranes dry - Neck Neck exam general surgery: Present: normal inspection, supple, trachea midline - Respiratory Respiratory exam: Present: decreased breath sounds - Cardiovascular Cardiovascular exam: Present: RRR, +S1, +S2 - GI/Abdominal GI/Abdominal exam: Present: diminished bowel sounds, soft, tenderness (Diffuse) - Extremities Exam Extremities exam: Present: warm, radial pulses palpable and symmetrical. Absent : cyanotic, pedal edema - Neurological Exam Neurological exam: Present: alert. Absent: facial droop, speech deficit - Skin Skin exam: Present: dry, warm Internal Medicine: Result - Labs CBC & Chem 7: 07/27/17 08:06 07/26/17 03:44 Labs: Short CBC 07/27/17 Range/Units 08:06 WBC 17.9 H (4.3-11.1) K/mcL Hgb 15.3 (11.5-15.4) g/dL Hct 46.8 H (35.3-44.9) % Plt Count 246 (140-400) K/mcL - ABG Interpretation ABG results: PT/INR, D-dimer PT 12.0 Seconds (9.4-12.1) 07/25/17 08:59 D-Dimer 3568 ng/mLFEU (0-500) H 07/21/17 04:46 - Impressions Impressions Chest X-Ray 07/27/17 06:00 IMPRESSION: Resolved pneumothorax at the left lung apex. Indwelling tunneled chest tube on the left noted. Mild decreased right pleural effusion, and improved aeration in the right upper lobe. D/ / Sanju Campbell MD / Sanju Campbell MD Interpreting Provider: Sanju Campbell MD Chest X-Ray 07/27/17 09:59 IMPRESSION: No pneumothorax is identified following thoracentesis. Improved aeration in the right lung, with a mild decrease in pleural fluid. Indwelling chest tube on the left. D/ / Sanju Campbell MD / Sanju Campbell MD Interpreting Provider: Sanju Campbell MD - VTE Documentation of Mechanical Device: Intermittent pneumatic compression device Consult Discharge Plan - Plan Referrals: Dudley Mcdaniel MD [Partnered Physician] - 08/05/17 3:[address] MD [Primary Care Provider] - 08/02/17 10:00 am <Maxwell Spaulding P - Last Filed: 07/27/17 17:13> Date of Encounter: 07/27/17 - Constitutional Vitals: Temp Pulse Resp BP Pulse Ox 97.9 F 89 19 125/58 95 07/27/17 07:00 07/27/17 15:00 07/27/17 15:00 07/27/17 15:00 07/27/17 15:00 Internal Medicine: Result - Labs CBC & Chem 7: 07/27/17 08:06 07/26/17 03:44 Labs: Short CBC 07/27/17 Range/Units 08:06 WBC 17.9 H (4.3-11.1) K/mcL Hgb 15.3 (11.5-15.4) g/dL Hct 46.8 H (35.3-44.9) % Plt Count 246 (140-400) K/mcL - ABG Interpretation ABG results: PT/INR, D-dimer PT 12.0 Seconds (9.4-12.1) 07/25/17 08:59 D-Dimer 3568 ng/mLFEU (0-500) H 07/21/17 04:46 - Impressions Impressions Chest X-Ray 07/27/17 06:00 IMPRESSION: Resolved pneumothorax at the left lung apex. Indwelling tunneled chest tube on the left noted. Mild decreased right pleural effusion, and improved aeration in the right upper lobe. D/ / Sanju Campbell MD / Sanju Campbell MD Interpreting Provider: Sanju Campbell MD Chest X-Ray 07/27/17 09:59 IMPRESSION: No pneumothorax is identified following thoracentesis. Improved aeration in the right lung, with a mild decrease in pleural fluid. Indwelling chest tube on the left. D/ / Sanju Campbell MD / Sanju Campbell MD Interpreting Provider: Sanju Campbell MD - Attending Attestation I examined this patient and my medical decision-making was reviewed with the Resident Physician. I agree with the documented findings, disposition and treatment plan as described except to the extent set forth below. will follow recommendations from Pulmonary, Oncology and Palliative care.
[2017-07-27] MEDS: Diltiazem SR (12hr) 60 MG CAPSULE PO SCH ×2 (13:11→21:54)
[2017-07-27] MEDS: Dorzolamide/Timolol OPTH 10 ML BOTTLE RIGHT EYE SCH ×2 (13:16→21:53)
[2017-07-27] MEDS ORDERED: Ondansetron 4 MG/2 ML VIAL IVP PRN (13:22)
[2017-07-27] MEDS: amLODIPine 5 MG TABLET PO SCH ×2 (13:24→21:54)
[2017-07-27] MEDS: Lisinopril 20 MG TABLET PO SCH (13:25)
--- NOTE | 2017-07-27 16:34 | Oncology Inp Progress Note ---
Date of Encounter: 07/27/17 Time of Encounter: 16:21 (1) Metastatic adenocarcinoma Current Visit: Yes Status: Acute Assessment and plan: - Possible primary lung. I discussed with patient's daughter at the bedside the options of management, including hospice or cancer therapy. After the discussion she expressed her decision to discuss that information with the rest of the family and then decide. I explained her that in view of her poor performance status, at this time chemotherapy probably would be detrimental. I explained her that immunotherapy with pembrolizumab could be an alternative, although we do not have enough tissue for PD-L1 testing at this time, and a bronchoscopy is not considered at this time in view of her poor respiratory status. I discussed the following scenarios: a.) Attempting in the near future ( possible after discharge) to complete a bronchoscopy to obtain further tissue to test for PD-L1. If PD-L1 levels were at or above 50%, she probably would benefit from therapy with pembrolizumab. She was reluctant about this option, since she leaned toward the option to avoid a bronchoscopy due to concerns that her respiratory function could descompensate. b.) We discussed the option of attempting to obtain approval to pursue therapy with pembrolizumab without PD-L1 testing results ( without bronchoscopy ). c.) We spoke about the option of hospice. I explained her that hospice would be also a reasonable option if she decided to focus her care only quality of life and comfort. After discussion, she expressed uncertainty about which option to pursue, and let me know that she would discuss this information with the rest of the family before taking a final decision. Patient was listening to our conversation, but did not actively participated. I asked her if she had any question or comment, but she just expressed appreciation for the information being provided. Will inform primary oncologist Dr. Mcdaniel about the current events. Oncology: Subj Interval history: Patient was seen with her family, including her daughter at the bedside. She is currently in 3 LPM of supplemental O2, pleurex cath placed in left side, s/p thoracenthesis in the right side today. - Constitutional Vitals: Vital Signs Temp Pulse Resp BP Pulse Ox 07/27/17 07:00 97.9 F 91 17 143/65 94 07/27/17 05:28 97.6 F 80 20 145/63 92 07/27/17 00:32 80 109/61 93 07/26/17 22:18 79 122/62 07/26/17 21:39 90 07/26/17 21:31 90 07/26/17 21:12 98.6 F 80 24 143/63 90 Intake and Output 07/27/17 07/27/17 07/27/17 07:59 15:59 23:59 Intake Total 0 / 0 Output Total 95 / 95 Balance -95 / -95 Intake: Oral 0 / 0 Output: Urine 75 / 75 Chest Tube Drainage Left Lateral Chest #1 Other: # Voids 0 Weight 66.2 kg Blood Glucose* 171 186 Patient Weight 07/27/17 23:59 Weight 66.2 kg - Head Head exam: Present: normal inspection - Neck Neck exam: Present: normal inspection - Respiratory Respiratory exam: Absent: accessory muscle use, respiratory distress Oncology: Obj Data - Labs CBC & Chem 7: 07/27/17 08:06 07/26/17 03:44 Labs: Laboratory Results - last 24 hr 07/25/17 07/25/17 07/25/17 08:01 12:05 16:57 WBC RBC Hgb Hct MCV MCH MCHC RDW Plt Count MPV POC Glucose 160 H 160 H 197 H 07/25/17 07/26/17 07/26/17 20:13 11:54 16:45 WBC RBC Hgb Hct MCV MCH MCHC RDW Plt Count MPV POC Glucose 118 H 249 H 123 H 07/26/17 07/27/17 07/27/17 21:17 00:38 08:06 WBC 17.9 H RBC 5.25 H Hgb 15.3 Hct 46.8 H MCV 89.1 MCH 29.1 MCHC 32.7 RDW 13.0 Plt Count 246 MPV 9.9 POC Glucose 167 H 149 H - Impressions Impressions Chest X-Ray 07/27/17 06:00 IMPRESSION: Resolved pneumothorax at the left lung apex. Indwelling tunneled chest tube on the left noted. Mild decreased right pleural effusion, and improved aeration in the right upper lobe. D/ / Sanju Campbell MD / Sanju Campbell MD Interpreting Provider: Sanju Campbell MD Chest X-Ray 07/27/17 09:59 IMPRESSION: No pneumothorax is identified following thoracentesis. Improved aeration in the right lung, with a mild decrease in pleural fluid. Indwelling chest tube on the left. D/ / Sanju Campbell MD / Sanju Campbell MD Interpreting Provider: Sanju Campbell MD - ABG Interpretation ABG results: PT/INR, D-dimer PT 12.0 Seconds (9.4-12.1) 07/25/17 08:59 D-Dimer 3568 ng/mLFEU (0-500) H 07/21/17 04:46 Consult Discharge Plan - Plan Referrals: Dudley Mcdaniel MD [Partnered Physician] - 08/05/17 3:[address] MD [Primary Care Provider] - 08/02/17 10:00 am
[2017-07-27] MEDS: Latanoprost 2.5 ML BOTTLE RIGHT EYE SCH (21:53)
[2017-07-28] MEDS: *HR* Morphine 2 MG/ML SYRINGE IVP PRN ×3 (03:22→11:54)
[2017-07-28 05:53] LABS: Potassium 5.3 mEq/L (3.5-4.5)
[2017-07-28 05:59] LABS: Hematocrit 44.1 % (35.3-44.9); Hemoglobin 15.2 g/dL (11.5-15.4); Immature Platelets 3.5 % (1.1-6.1); Mean Corpuscular HGB Conc 34.5 g/dL (31.6-35.5); Mean Corpuscular Hemoglobin 29.1 pg (28.0-33.3); Mean Corpuscular Volume 84.5 fL (83.0-100.0); Mean Platelet Volume 10.4 fL (9.4-12.4); Red Blood Count 5.22 M/mcL (3.82-4.97); Red Cell Distribution Width 13.1 % (11.5-14.5)
[2017-07-28] MEDS: Insulin LISPRO 300 UNITS/3 ML VIAL SQ SCH ×5 (08:58→21:33)
[2017-07-28] MEDS: amLODIPine 5 MG TABLET PO SCH ×2 (09:00→21:32)
[2017-07-28] MEDS: Diltiazem SR (12hr) 60 MG CAPSULE PO SCH ×2 (09:00→21:32)
[2017-07-28] MEDS: Lisinopril 20 MG TABLET PO SCH (09:01)
[2017-07-28] MEDS: Megestrol Acetate 400 MG/10 ML UDC PO SCH ×2 (09:02→21:28)
[2017-07-28] MEDS: Dorzolamide/Timolol OPTH 10 ML BOTTLE RIGHT EYE SCH ×2 (09:03→21:33)
--- NOTE | 2017-07-28 09:26 | Internal Med Progress Note ---
<Sanju Hussein - Last Filed: 07/28/17 14:24> Date of Encounter: 07/28/17 Time of Encounter: 09:26 - Assessment and plan (1) Metastatic adenocarcinoma Current Visit: Yes Status: Acute Assessment and plan: Cytology results pending for the hemorrhagic bilateral pleural fluid reveal metastatic adenocarcinoma Oncology on board and thinks it's less likely to be breast cancer in origin ( patient has history of breast cancer) and cannot completely rule out lung primary. Patient had left PleurX catheter inserted 07/26/14 and right thoracentesis 07/27. May consider right PleurX catheter insertion per pulmonology Patient is [id number]. Palliative care on board for assistance to provide patient comfort. Daughter and son in law are at bedside and expressed a desire for comfort measures at this time. Family refuses bronchoscopy or immunotherapy at this time. Palliative care following (2) Malignant pleural effusion Current Visit: Yes Status: Acute Assessment and plan: Moderate bilateral pleural effusion on CT chest. Oncology on board and thinks it's less likely to be breast cancer in origin ( patient has history of breast cancer) and cannot completely rule out lung primary. (3) Pleural effusion, bilateral Current Visit: Yes Status: Acute Assessment and plan: Bilateral pleural effusions secondary to metastatic adenocarcinoma of unknown origin See above. (4) Acute respiratory failure with hypoxia Current Visit: Yes Status: Acute Assessment and plan: Secondary to malignant pleural effusion and pneumonia. Patient reports breathing better with removal of pleural fluid. Continue supplemental oxygen. Maintaining saturation above 92%. (5) Pneumonia Current Visit: Yes Status: Acute Assessment and plan: Patient finished 7-day course of antibiotics (ceftriaxone and azithromycin) Qualifiers: Pneumonia type: due to unspecified organism Laterality: bilateral Lung location: unspecified part of lung Qualified Code(s): J18.9 - Pneumonia, unspecified organism (6) Diabetes mellitus Current Visit: No Status: Chronic Assessment and plan: Insulin sliding scale with routine glucose monitoring. Qualifiers: Diabetes mellitus type: type 2 Diabetes mellitus complication status: without complication Diabetes mellitus fci insulin use: without fci use Qualified Code(s): E11.9 - Type 2 diabetes mellitus without complications (7) A-fib Current Visit: No Status: Chronic Assessment and plan: Chronic paroxysmal atrial fibrillation Currently rate-controlled with Cardizem and AV paced Was on Xarelto but that was held on admission secondary to hemoptysis. Qualifiers: Atrial fibrillation type: paroxysmal Qualified Code(s): I48.0 - Paroxysmal atrial fibrillation (8) Hypertension Current Visit: No Status: Chronic Assessment and plan: BP within normal range. Continue current antihypertensive regimen. Qualifiers: Hypertension type: essential hypertension Qualified Code(s): I10 - Essential (primary) hypertension (9) Thoracic aortic aneurysm, without rupture Current Visit: Yes Status: Acute Assessment and plan: CTA showed a 4.0 x 4.0 cm aneurysm of the thoracic ascending aorta. (10) GIFTY (acute kidney injury) Current Visit: Yes Status: Acute Assessment and plan: Patient has only had 95 mL urine output during the past 24 hours and family reports decreased oral hydration. She only drank 1 Ensure yesterday Gentle hydration. Continue to monitor. (11) Constipation Current Visit: Yes Status: Acute Assessment and plan: Last bowel movement 6 days ago. Continue laxatives. Continue to monitor Qualifiers: Constipation type: unspecified constipation type Qualified Code(s): K59.00 - Constipation, unspecified (12) Moderate protein-calorie malnutrition Current Visit: Yes Status: Acute Assessment and plan: BMI is 25.9 Inadequate PO intake with lack of appetite over the last month, 6% unplanned weight loss over the last month, loss of muscle mass, and loss of subcuticular fat. Continue nutritional supplemention (13) DVT prophylaxis Current Visit: No Status: Acute Assessment and plan: Xarelto held for hemoptysis SCDs - Subjective Interval history: Patient resting comfortably in bed. Patient reports continued sputum production and mild shortness of breath. Daughter and son in law are at bedside and expressed a desire for comfort measures at this time. Family refuses bronchoscopy or immunotherapy at this time. Of note, patient has only had 95 mL urine output during the past 24 hours and family reports decreased oral hydration. She only drank 1 Ensure yesterday and last bowel movement 6 days ago - Constitutional Vitals: Temp Pulse Resp BP Pulse Ox 98.1 F 82 17 144/69 95 07/28/17 07:00 07/28/17 07:00 07/28/17 07:00 07/28/17 07:00 07/28/17 07:00 General appearance: Present: cooperative, mild distress, A&O X 3, pleasant, underweight, answers questions appropriately Exam: Lethargic, appears ill - Head Head exam: Present: atraumatic, normal inspection, normocephalic - Eye Eye exam: Present: EOMI, PERRL - ENT ENT exam: Present: mucous membranes dry, normal oropharynx - Neck Neck exam general surgery: Present: normal inspection, supple. Absent: tenderness - Respiratory Respiratory exam: Present: CTAB. Absent: accessory muscle use, decreased breath sounds, respiratory distress Additional comments: good air movement bilaterally, yellow sputum production, left sided Pleurx pleural catheter in place. No surrounding erythema. - Cardiovascular Cardiovascular exam: Present: irregular rhythm, +S1, +S2 - GI/Abdominal GI/Abdominal exam: Present: normal bowel sounds, soft. Absent: firm, tenderness - Additional comments: No Gonsalves - Extremities Exam Extremities exam: Present: warm. Absent: pedal edema, tenderness - Back Exam Back exam: Present: normal inspection. Absent: CVA tenderness (L), CVA tenderness (R), paraspinal tenderness, tenderness - Neurological Exam Neurological exam: Present: alert, no focal deficits. Absent: facial droop, speech deficit - Psychiatric Psychiatric exam: Present: flat affect, normal mood - Skin Skin exam: Present: dry, pallor, warm. Absent: erythema Internal Medicine: Result - Labs CBC & Chem 7: 07/28/17 05:01 07/28/17 05:01 Labs: Short CBC 07/28/17 Range/Units 05:01 WBC 19.4 H (4.3-11.1) K/mcL Hgb 15.2 (11.5-15.4) g/dL Hct 44.1 (35.3-44.9) % Plt Count 286 (140-400) K/mcL BMP 07/28/17 05:01 Sodium 130 L Potassium 5.3 H Chloride 99 Carbon Dioxide 22 BUN 57 H D Creatinine 1.18 H Glucose 181 H Calcium 9.0 - ABG Interpretation ABG results: PT/INR, D-dimer PT 12.0 Seconds (9.4-12.1) 07/25/17 08:59 D-Dimer 3568 ng/mLFEU (0-500) H 07/21/17 04:46 - Pulse Oximetry Interpretation Digit-Finger Pulse Oximetry Readin (2 L of oxygen via nasal cannula) - Impressions Impressions Chest X-Ray 07/27/17 09:59 IMPRESSION: No pneumothorax is identified following thoracentesis. Improved aeration in the right lung, with a mild decrease in pleural fluid. Indwelling chest tube on the left. D/ / Sanju Campbell MD / Sanju Campbell MD Interpreting Provider: Sanju Campbell MD - VTE Documentation of Mechanical Device: Intermittent pneumatic compression device Consult Discharge Plan - Plan Referrals: Dudley Mcdaniel MD [Partnered Physician] - 08/05/17 3:[address] MD [Primary Care Provider] - 08/02/17 10:00 am <Maxwell Spaulding - Last Filed: 07/28/17 18:40> Date of Encounter: 07/28/17 - Constitutional Vitals: Temp Pulse Resp BP Pulse Ox 97.6 F 80 18 116/56 100 07/28/17 16:17 07/28/17 16:17 07/28/17 16:17 07/28/17 16:17 07/28/17 16:17 Internal Medicine: Result - Labs CBC & Chem 7: 07/28/17 05:01 07/28/17 05:01 Labs: Short CBC 07/28/17 Range/Units 05:01 WBC 19.4 H (4.3-11.1) K/mcL Hgb 15.2 (11.5-15.4) g/dL Hct 44.1 (35.3-44.9) % Plt Count 286 (140-400) K/mcL BMP 07/28/17 05:01 Sodium 130 L Potassium 5.3 H Chloride 99 Carbon Dioxide 22 BUN 57 H D Creatinine 1.18 H Glucose 181 H Calcium 9.0 - ABG Interpretation ABG results: PT/INR, D-dimer PT 12.0 Seconds (9.4-12.1) 07/25/17 08:59 D-Dimer 3568 ng/mLFEU (0-500) H 07/21/17 04:46 - Attending Attestation I examined this patient and my medical decision-making was reviewed with the Resident Physician. I agree with the documented findings, disposition and treatment plan as described except to the extent set forth below. Metastatic adenocarcinoma with bilateral pleural effusion. Patient/family prefers palliative care/home hospice. Possible home on Wednesday
--- NOTE | 2017-07-28 10:00 | Pulmonology Progress Note ---
<Alexandro Vences - Last Filed: 07/28/17 10:06> Date of Encounter: 07/28/17 Time of Encounter: 08:45 Assessment and Plan (1) Metastatic adenocarcinoma Current Visit: Yes Status: Acute Patient is being followed by oncology and palliative care. Family declined bronchoscopy. (2) Malignant pleural effusion Current Visit: Yes Status: Acute Patient underwent right side thoracentesis yesterday without complication, fluid sent for cytology. Patient may require a right sided pleurx catheter for recurrent effusion. Subjective Principal diagnosis: Metastatic Adenocarcinoma Interval history: Ms. Avina is resenting in bed at time of examination. She says that she's feeling awful, however she appears to be breathing easier today and appears less distressed. She continues to complain of vague abdominal pain that is apparently chronic. Objective PUL Vital signs: Last Vital Signs Temp 98.1 F 07/28/17 07:00 Pulse 82 07/28/17 07:00 Resp 17 07/28/17 07:00 BP 144/69 07/28/17 07:00 Pulse Ox 95 07/28/17 07:00 General appearance: no acute distress Eyes: nonicteric ENT: oropharynx moist Neck: supple, no lymphadenopathy Effort: normal Auscultation: bilateral: diminished breath sounds Cardiovascular: regular rate and rhythm Gastrointestinal: normoactive bowel sounds, non-distended Integumentary: normal Extremities: no cyanosis, no edema, no clubbing Musculoskeletal: no deformities, ROM normal normal mental status, non-focal exam mood appropriate, affect normal Results - Laboratory Findings CBC and BMP: 07/28/17 05:01 07/28/17 05:01 PT/INR, D-dimer PT 12.0 Seconds (9.4-12.1) 07/25/17 08:59 D-Dimer 3568 ng/mLFEU (0-500) H 07/21/17 04:46 Abnormal lab findings: Abnormal lab results WBC 19.4 K/mcL (4.3-11.1) H 07/28/17 05:01 RBC 5.22 M/mcL (3.82-4.97) H 07/28/17 05:01 Monocytes # 1.4 K/mcL (0.0-1.3) H 07/24/17 05:31 Nucleated RBCs/100 WBC 0.2 /100 WBC (0) H 07/24/17 05:31 Hypersegmented Neuts Present (Not Present) A 07/23/17 03:38 Toxic Granulation Present (Not Present) A 07/23/17 03:38 Large Platelets Present (Not Present) A 07/23/17 03:38 D-Dimer 3568 ng/mLFEU (0-500) H 07/21/17 04:46 Sodium 130 mEq/L (136-145) L 07/28/17 05:01 Potassium 5.3 mEq/L (3.5-4.5) H 07/28/17 05:01 BUN 57 mg/dL (7-20) H D 07/28/17 05:01 Creatinine 1.18 mg/dL (0.57-1.11) H 07/28/17 05:01 Est GFR ( Amer) 53 (> 60) L 07/28/17 05:01 Est GFR (Non-Af Amer) 44 (> 60) L 07/28/17 05:01 BUN/Creatinine Ratio 48 (6-26) H 07/28/17 05:01 Glucose 181 mg/dL (70-99) H 07/28/17 05:01 POC Glucose 227 (58-89) H 07/27/17 21:50 Lactate Dehydrogenase 535 Units/L (159-327) H 07/21/17 04:46 B-Natriuretic Peptide 121 pg/mL (0-100) H 07/20/17 17:46 Albumin 3.1 g/dL (3.5-5.0) L 07/22/17 04:39 Albumin/Globulin Ratio 0.9 (1.1-2.2) L 07/22/17 04:39 Pleural Appearance Bloody (Clear) A 07/21/17 13:40 Pleural RBC 0.255 M/mcL (0.000-0.002) H 07/21/17 13:40 Pleural Tot Nuc Cell 1292 TNC/mcL (0-1000) H 07/21/17 13:40 - Microbiology Findings Microbiology Findings: Microbiology, Last 48 Hours 07/25/17 13:43 Sputum Culture - Preliminary Sputum Yeast Species - VTE Documentation of Mechanical Device: Intermittent pneumatic compression device Consult Discharge Plan - Plan Referrals: Dudley Mcdaniel MD [Partnered Physician] - 08/05/17 3:[address] MD [Primary Care Provider] - 08/02/17 10:00 am <Rominajose [email or web address] Patrice - Last Filed: 07/28/17 15:21> Date of Encounter: 07/28/17 Assessment and Plan (1) Metastatic adenocarcinoma Current Visit: Yes Status: Acute (2) Malignant pleural effusion Current Visit: Yes Status: Acute Objective PUL Vital signs: Last Vital Signs Temp 98.1 F 07/28/17 07:00 Pulse 80 07/28/17 11:50 Resp 20 07/28/17 11:50 BP 108/59 07/28/17 11:50 Pulse Ox 95 07/28/17 07:00 Results - Laboratory Findings CBC and BMP: 07/28/17 05:01 07/28/17 05:01 PT/INR, D-dimer PT 12.0 Seconds (9.4-12.1) 07/25/17 08:59 D-Dimer 3568 ng/mLFEU (0-500) H 07/21/17 04:46 Abnormal lab findings: Abnormal lab results WBC 19.4 K/mcL (4.3-11.1) H 07/28/17 05:01 RBC 5.22 M/mcL (3.82-4.97) H 07/28/17 05:01 Monocytes # 1.4 K/mcL (0.0-1.3) H 07/24/17 05:31 Nucleated RBCs/100 WBC 0.2 /100 WBC (0) H 07/24/17 05:31 Hypersegmented Neuts Present (Not Present) A 07/23/17 03:38 Toxic Granulation Present (Not Present) A 07/23/17 03:38 Large Platelets Present (Not Present) A 07/23/17 03:38 D-Dimer 3568 ng/mLFEU (0-500) H 07/21/17 04:46 Sodium 130 mEq/L (136-145) L 07/28/17 05:01 Potassium 5.3 mEq/L (3.5-4.5) H 07/28/17 05:01 BUN 57 mg/dL (7-20) H D 07/28/17 05:01 Creatinine 1.18 mg/dL (0.57-1.11) H 07/28/17 05:01 Est GFR ( Amer) 53 (> 60) L 07/28/17 05:01 Est GFR (Non-Af Amer) 44 (> 60) L 07/28/17 05:01 BUN/Creatinine Ratio 48 (6-26) H 07/28/17 05:01 Glucose 181 mg/dL (70-99) H 07/28/17 05:01 POC Glucose 230 (58-89) H 07/28/17 11:57 Lactate Dehydrogenase 535 Units/L (159-327) H 07/21/17 04:46 B-Natriuretic Peptide 121 pg/mL (0-100) H 07/20/17 17:46 Albumin 3.1 g/dL (3.5-5.0) L 07/22/17 04:39 Albumin/Globulin Ratio 0.9 (1.1-2.2) L 07/22/17 04:39 Pleural Appearance Bloody (Clear) A 07/21/17 13:40 Pleural RBC 0.255 M/mcL (0.000-0.002) H 07/21/17 13:40 Pleural Tot Nuc Cell 1292 TNC/mcL (0-1000) H 07/21/17 13:40 - Microbiology Findings Microbiology Findings: Microbiology, Last 48 Hours 07/25/17 13:43 Sputum Culture - Preliminary Sputum Yeast Species - Attending Attestation I examined this patient and my medical decision-making was reviewed with the Resident Physician. I agree with the documented findings, disposition and treatment plan as described except to the extent set forth below. Patient seen and examined. Labs, radiology, chart personally reviewed. Agree with resident's history and physical, assessment, plan with following comments: [employer]: Patient follows commands, Pulmonary: Acceptable oxygenation and ventilation and patient seems to be in less distress comparing with yesterday before thoracentesis. One more time she might need a Pleurx catheter and will discuss that with the family. If they would agree then it can be done as outpatient. Discussed with the palliative care service as well.
[2017-07-28] MEDS ORDERED: 0.9 % Sodium Chloride 1,000 ML IVC SCH (10:45)
[2017-07-28] MEDS: GuaiFENesin/Dextromethorphan TABLET PO SCH ×2 (11:53→21:32)
[2017-07-28] MEDS ORDERED: 0.9 % Sodium Chloride 500 ML IVC SCH (12:07)
--- NOTE | 2017-07-28 13:08 | Palliative Progress Note ---
Date of Encounter: 07/28/17 Time of Encounter: 13:00 - Assessment and plan (1) Shortness of breath at rest Current Visit: Yes Status: Acute Assessment and plan: Improved after thoracentesis yesterday. Lt pleurx cath remains. Supportive oxygen - low dose Opioids PRN. (2) Anxiety Current Visit: No Status: Acute Assessment and plan: Continue Xanax as ordered. Has not required last 24 hours. (3) Goals of care, counseling/discussion Current Visit: Yes Status: Acute Assessment and plan: Awaiting daughter Kellie arrival this afternoon for meeting. She is to call me when she arrives. Zev ruano at bedside states he thinks they are going to desire enrollment in hospice. Will f/u after meeting (4) Acute respiratory failure with hypoxia Current Visit: Yes Status: Acute (5) Malignant pleural effusion Current Visit: Yes Status: Acute (6) Metastatic adenocarcinoma Current Visit: Yes Status: Acute - Time Spent With Patient Total time spent is greater than 50% in coordination of care (as documented) at patient's floor/unit and/or counseling patient: 25 - 35 minutes - Subjective Interval history: Patient resting quietly with eyes closed. Zev ruano at bedside. Appears in no distress. Patient with poor intake, increased BUN/Cr, gentle hydration has been started. - Constitutional Vitals: Abnormal lab results WBC 19.4 K/mcL (4.3-11.1) H 07/28/17 05:01 RBC 5.22 M/mcL (3.82-4.97) H 07/28/17 05:01 Monocytes # 1.4 K/mcL (0.0-1.3) H 07/24/17 05:31 Nucleated RBCs/100 WBC 0.2 /100 WBC (0) H 07/24/17 05:31 Hypersegmented Neuts Present (Not Present) A 07/23/17 03:38 Toxic Granulation Present (Not Present) A 07/23/17 03:38 Large Platelets Present (Not Present) A 07/23/17 03:38 D-Dimer 3568 ng/mLFEU (0-500) H 07/21/17 04:46 Sodium 130 mEq/L (136-145) L 07/28/17 05:01 Potassium 5.3 mEq/L (3.5-4.5) H 07/28/17 05:01 BUN 57 mg/dL (7-20) H D 07/28/17 05:01 Creatinine 1.18 mg/dL (0.57-1.11) H 07/28/17 05:01 Est GFR ( Amer) 53 (> 60) L 07/28/17 05:01 Est GFR (Non-Af Amer) 44 (> 60) L 07/28/17 05:01 BUN/Creatinine Ratio 48 (6-26) H 07/28/17 05:01 Glucose 181 mg/dL (70-99) H 07/28/17 05:01 POC Glucose 230 (58-89) H 07/28/17 11:57 Lactate Dehydrogenase 535 Units/L (159-327) H 07/21/17 04:46 B-Natriuretic Peptide 121 pg/mL (0-100) H 07/20/17 17:46 Albumin 3.1 g/dL (3.5-5.0) L 07/22/17 04:39 Albumin/Globulin Ratio 0.9 (1.1-2.2) L 07/22/17 04:39 Pleural Appearance Bloody (Clear) A 07/21/17 13:40 Pleural RBC 0.255 M/mcL (0.000-0.002) H 07/21/17 13:40 Pleural Tot Nuc Cell 1292 TNC/mcL (0-1000) H 07/21/17 13:40 General appearance: Present: no acute distress - Respiratory Respiratory exam: Present: decreased breath sounds, CTAB Additional comments: Left pleurx cath in place - Cardiovascular Cardiovascular exam: Present: +S1, +S2 - GI/Abdominal GI/Abdominal exam: Present: normal bowel sounds, soft - Extremities Exam Extremities exam: Present: normal capillary refill, normal inspection - Neurological Exam Neurological exam: Present: alert, oriented X3 Additional comments: generalized weakness - Skin Skin exam: Present: dry, pallor, warm Palliative Quality Palliative Quality: Screen for Code Status: Yes, Screen for Goals of Care: Yes, Screen for Pain: Yes, If Pain Regimen Started, Initiate Bowel Regimen: Yes, Screen for Nausea/Vomitting: Yes Code Status: 07/20/17 21:59 Resuscitation Status: Active [RES] Routine Comment: Resuscitation Status: [id number] - Labs CBC & Chem 7: 07/28/17 05:01 07/28/17 05:01 Labs: Laboratory Results - last 24 hr 07/27/17 07/27/17 07/27/17 05:36 17:42 21:50 WBC RBC Hgb Hct MCV MCH MCHC RDW Plt Count MPV Immature Plt Fraction Sodium Potassium Chloride Carbon Dioxide BUN Creatinine Est GFR ( Amer) Est GFR (Non-Af Amer) BUN/Creatinine Ratio Glucose POC Glucose 171 H 138 H 227 H Calculated Osmolality Calcium 07/28/17 07/28/17 07/28/17 05:01 05:01 07:30 WBC 19.4 H RBC 5.22 H Hgb 15.2 Hct 44.1 MCV 84.5 MCH 29.1 MCHC 34.5 RDW 13.1 Plt Count 286 MPV 10.4 Immature Plt Fraction 3.5 Sodium 130 L Potassium 5.3 H Chloride 99 Carbon Dioxide 22 BUN 57 H D Creatinine 1.18 H Est GFR ( Amer) 53 L Est GFR (Non-Af Amer) 44 L BUN/Creatinine Ratio 48 H Glucose 181 H POC Glucose 185 H Calculated Osmolality 290 Calcium 9.0 07/28/17 11:57 WBC RBC Hgb Hct MCV MCH MCHC RDW Plt Count MPV Immature Plt Fraction Sodium Potassium Chloride Carbon Dioxide BUN Creatinine Est GFR ( Amer) Est GFR (Non-Af Amer) BUN/Creatinine Ratio Glucose POC Glucose 230 H Calculated Osmolality Calcium - ABG Interpretation ABG results: PT/INR, D-dimer PT 12.0 Seconds (9.4-12.1) 07/25/17 08:59 D-Dimer 3568 ng/mLFEU (0-500) H 07/21/17 04:46 Consult Discharge Plan - Plan Referrals: Dudley Mcdaniel MD [Partnered Physician] - 08/05/17 3:[address] MD [Primary Care Provider] - 08/02/17 10:00 am
[2017-07-28] MEDS ORDERED: *HR* Morphine 2 MG/ML SYRINGE IVP PRN (13:34)
[2017-07-28] MEDS: Ipratropium/Albuterol Neb 3 ML IH SCH ×4 (15:24→23:53)
[2017-07-28] MEDS ORDERED: *HR* LORazepam Oral Conc 2 MG/ML SL PRN (16:49)
--- NOTE | 2017-07-28 16:52 | Event Note ---
Date of Encounter: 07/28/17 Time of Encounter: 16:50 Meeting with daughter Kellie and son Stefano. They have decided to take pt home with hospice care. Will call referral to [facility] in am, as they are already out of the office. Family desires transition home on Wednesday afternoon. Will begin transition to oral Roxanol and titrate as needed. Will f/u in am.
[2017-07-28] MEDS: Morphine Oral CONC 5 MG/0.25 ML ORAL.SYG PO PRN (21:24)
[2017-07-28] MEDS: Sennosides/Docusate Sodium TABLET PO SCH (21:32)
[2017-07-28] MEDS: Latanoprost 2.5 ML BOTTLE RIGHT EYE SCH (21:33)
[2017-07-29] MEDS: Morphine Oral CONC 5 MG/0.25 ML ORAL.SYG PO PRN ×5 (02:49→21:43)
[2017-07-29] MEDS: Ipratropium/Albuterol Neb 3 ML IH SCH ×6 (04:23→23:34)
[2017-07-29 05:11] LABS: Basophils % 0.1 %; Eosinophils % 0.1 %; Hematocrit 39.2 % (35.3-44.9); Immature Granulocytes % 0.7 % (0-4); Lymphocytes # 1.2 K/mcL (0.6-4.6); Lymphocytes % 7.1 %; Mean Corpuscular HGB Conc 33.9 g/dL (31.6-35.5); Mean Corpuscular Hemoglobin 28.4 pg (28.0-33.3); Mean Corpuscular Volume 83.6 fL (83.0-100.0); Mean Platelet Volume 10.1 fL (9.4-12.4); Monocytes # 2.2 K/mcL (0.0-1.3); Monocytes % 13.6 %; Neutrophils # 12.8 K/mcL (1.6-8.9); Platelet Count 257 K/mcL (140-400); Red Blood Count 4.69 M/mcL (3.82-4.97); Red Cell Distribution Width 13.4 % (11.5-14.5); Segmented Neutrophils % 78.4 %
[2017-07-29 05:13] LABS: Hemoglobin 13.3 g/dL (11.5-15.4)
[2017-07-29 05:21] LABS: BUN/Creatinine Ratio 57 (6-26); Blood Urea Nitrogen 57 mg/dL (7-20); Calcium 8.2 mg/dL (8.6-10.8); Carbon Dioxide 21 mEq/L (19-29); Chloride 101 mEq/L (98-109); Glucose 166 mg/dL (70-99); Osmolality,Calculated 294 (280-300); Potassium 4.6 mEq/L (3.5-4.5); Sodium 132 mEq/L (136-145); eGFR For African Americans > 60 (> 60); eGFR For Non-African Americans 53 (> 60)
--- NOTE | 2017-07-29 06:39 | Internal Med Progress Note ---
<Sanju Hussein - Last Filed: 07/29/17 13:04> Date of Encounter: 07/29/17 Time of Encounter: 06:38 - Assessment and plan (1) Metastatic adenocarcinoma Current Visit: Yes Status: Acute Assessment and plan: Cytology results pending for the hemorrhagic bilateral pleural fluid reveal metastatic adenocarcinoma Oncology on board and thinks it's less likely to be breast cancer in origin ( patient has history of breast cancer) and cannot completely rule out lung primary. Patient had left PleurX catheter inserted 07/26/14 and right thoracentesis 07/27. Patient is DNR-CCA-DNI. Palliative care on board for assistance to provide patient comfort. Family expressed a desire for comfort measures at this time. Palliative care arranging home hospice (2) Malignant pleural effusion Current Visit: Yes Status: Acute Assessment and plan: Moderate bilateral pleural effusion on CT chest. Oncology on board and thinks it's less likely to be breast cancer in origin ( patient has history of breast cancer) and cannot completely rule out lung primary. (3) Pleural effusion, bilateral Current Visit: Yes Status: Acute Assessment and plan: Bilateral pleural effusions secondary to metastatic adenocarcinoma of unknown origin See above. (4) Acute respiratory failure with hypoxia Current Visit: Yes Status: Acute Assessment and plan: Secondary to malignant pleural effusion and pneumonia. Patient reports breathing better with removal of pleural fluid. Continue supplemental oxygen. Maintaining saturation above 92%. (5) Pneumonia Current Visit: Yes Status: Acute Assessment and plan: Patient finished 7-day course of antibiotics (ceftriaxone and azithromycin) Qualifiers: Pneumonia type: due to unspecified organism Laterality: bilateral Lung location: unspecified part of lung Qualified Code(s): J18.9 - Pneumonia, unspecified organism (6) Diabetes mellitus Current Visit: No Status: Chronic Assessment and plan: Insulin sliding scale with routine glucose monitoring. Qualifiers: Diabetes mellitus type: type 2 Diabetes mellitus complication status: without complication Diabetes mellitus terminal worker insulin use: without terminal worker use Qualified Code(s): E11.9 - Type 2 diabetes mellitus without complications (7) A-fib Current Visit: No Status: Chronic Assessment and plan: Chronic paroxysmal atrial fibrillation Currently rate-controlled and AV paced Discontinue Cardizem upon discharge Continue Metoprolol Was on Xarelto but that was held on admission secondary to hemoptysis. Qualifiers: Atrial fibrillation type: paroxysmal Qualified Code(s): I48.0 - Paroxysmal atrial fibrillation (8) Hypertension Current Visit: No Status: Chronic Assessment and plan: BP within normal range. Continue current antihypertensive regimen. Qualifiers: Hypertension type: essential hypertension Qualified Code(s): I10 - Essential (primary) hypertension (9) Thoracic aortic aneurysm, without rupture Current Visit: Yes Status: Acute Assessment and plan: CTA showed a 4.0 x 4.0 cm aneurysm of the thoracic ascending aorta. (10) GIFTY (acute kidney injury) Current Visit: Yes Status: Acute Assessment and plan: Improved with gentle hydration. Continue to monitor. (11) Constipation Current Visit: Yes Status: Acute Assessment and plan: Last bowel movement 7 days ago. Continue laxatives. Continue to monitor Qualifiers: Constipation type: unspecified constipation type Qualified Code(s): K59.00 - Constipation, unspecified (12) Moderate protein-calorie malnutrition Current Visit: Yes Status: Acute Assessment and plan: BMI is 25.9 Inadequate PO intake with lack of appetite over the last month, 6% unplanned weight loss over the last month, loss of muscle mass, and loss of subcuticular fat. Continue nutritional supplemention (13) DVT prophylaxis Current Visit: No Status: Acute Assessment and plan: Xarelto held for hemoptysis SCDs - Subjective Interval history: Patient resting comfortably in bed. Patient reports continued sputum production , abdominal pain, and shortness of breath. Niece is at bedside and rreports patient has very poor appetite. Last BM 7 days ago. - Constitutional Vitals: Temp Pulse Resp BP Pulse Ox 97.6 F 80 16 133/59 94 07/29/17 05:18 07/29/17 05:18 07/29/17 05:18 07/29/17 05:18 07/29/17 05:18 General appearance: Present: cooperative, mild distress, A&O X 3, pleasant, underweight, answers questions appropriately - Head Head exam: Present: atraumatic, normal inspection, normocephalic - Eye Eye exam: Present: EOMI, PERRL - ENT ENT exam: Present: mucous membranes dry, normal oropharynx - Neck Neck exam general surgery: Present: normal inspection, supple. Absent: lymphadenopathy, tenderness - Respiratory Respiratory exam: Present: decreased breath sounds, rales, wheezes. Absent: accessory muscle use, respiratory distress - Cardiovascular Cardiovascular exam: Present: irregular rhythm, +S1, +S2. Absent: tachycardia - GI/Abdominal GI/Abdominal exam: Present: hypoactive bowel sounds, soft, tenderness (diffuse) . Absent: distended, firm - Additional comments: no miranda - Extremities Exam Extremities exam: Present: normal inspection, warm, radial pulses palpable and symmetrical. Absent: pedal edema - Back Exam Back exam: Present: normal inspection. Absent: paraspinal tenderness, tenderness - Neurological Exam Neurological exam: Present: alert, no focal deficits. Absent: speech deficit - Psychiatric Psychiatric exam: Present: anxious, normal affect - Skin Skin exam: Present: dry, warm Internal Medicine: Result - Labs CBC & Chem 7: 07/29/17 04:31 07/29/17 04:31 Labs: Short CBC 07/29/17 Range/Units 04:31 WBC 16.3 H (4.3-11.1) K/mcL Hgb 13.3 D (11.5-15.4) g/dL Hct 39.2 (35.3-44.9) % Plt Count 257 (140-400) K/mcL Neutrophils # 12.8 H (1.6-8.9) K/mcL BMP 07/29/17 04:31 Sodium 132 L Potassium 4.6 H Chloride 101 Carbon Dioxide 21 BUN 57 H Creatinine 1.00 Glucose 166 H Calcium 8.2 L - ABG Interpretation ABG results: PT/INR, D-dimer PT 12.0 Seconds (9.4-12.1) 07/25/17 08:59 D-Dimer 3568 ng/mLFEU (0-500) H 07/21/17 04:46 - VTE Documentation of Mechanical Device: Intermittent pneumatic compression device Consult Discharge Plan - Plan Referrals: Dudley Mcdaniel MD [Partnered Physician] - 08/05/17 3:[address] MD [Primary Care Provider] - 08/02/17 10:00 am <Maxwell Spaulding - Last Filed: 07/29/17 18:24> Date of Encounter: 07/29/17 - Constitutional Vitals: Temp Pulse Resp BP Pulse Ox 97.9 F 80 20 131/56 94 07/29/17 16:33 07/29/17 16:33 07/29/17 16:33 07/29/17 16:33 07/29/17 16:33 Internal Medicine: Result - Labs CBC & Chem 7: 07/29/17 04:31 07/29/17 04:31 Labs: Short CBC 07/29/17 Range/Units 04:31 WBC 16.3 H (4.3-11.1) K/mcL Hgb 13.3 D (11.5-15.4) g/dL Hct 39.2 (35.3-44.9) % Plt Count 257 (140-400) K/mcL Neutrophils # 12.8 H (1.6-8.9) K/mcL BMP 07/29/17 04:31 Sodium 132 L Potassium 4.6 H Chloride 101 Carbon Dioxide 21 BUN 57 H Creatinine 1.00 Glucose 166 H Calcium 8.2 L - ABG Interpretation ABG results: PT/INR, D-dimer PT 12.0 Seconds (9.4-12.1) 07/25/17 08:59 D-Dimer 3568 ng/mLFEU (0-500) H 07/21/17 04:46 - Attending Attestation I examined this patient and my medical decision-making was reviewed with the Resident Physician. I agree with the documented findings, disposition and treatment plan as described except to the extent set forth below.
--- NOTE | 2017-07-29 08:18 | Pulmonology Progress Note ---
<Alexandro Vences - Last Filed: 07/29/17 09:06> Date of Encounter: 07/29/17 Time of Encounter: 08:40 Assessment and Plan (1) Metastatic adenocarcinoma Current Visit: Yes Status: Acute Patient is being followed by oncology and palliative care. Family declined bronchoscopy, will likely go home tomorrow with home hospice. (2) Malignant pleural effusion Current Visit: Yes Status: Acute The patient is resting comfortably and breathing more easily following thoracentesis. She is oxygenating and ventilating appropriately, and she does not appear to be in an distress. After discussion with family, the patient has decided to pursue home hospice and will likely be leaving tomorrow. She may require insertion of a pleurx catheter in the right lung as an outpatient. We will continue to watch for declines in respiratory status. Subjective Principal diagnosis: Metastatic Adenocarcinoma Interval history: Ms. Avina is resenting in bed at time of examination. She says that she's feeling awful, however she appears to be breathing easier today and appears less distressed. She continues to complain of vague abdominal pain that is apparently chronic. Objective PUL Vital signs: Last Vital Signs Temp 97.4 F L 07/29/17 07:36 Pulse 87 07/29/17 07:36 Resp 18 07/29/17 07:58 BP 137/59 07/29/17 07:36 Pulse Ox 95 07/29/17 07:58 General appearance: no acute distress, asleep Eyes: nonicteric ENT: oropharynx moist Neck: supple Effort: normal Auscultation: bilateral: clear, diminished breath sounds (in basees b/l) Percussion: bilateral: not dull Cardiovascular: regular rate and rhythm Gastrointestinal: normoactive bowel sounds, non-tender Integumentary: normal Extremities: no cyanosis, no clubbing Musculoskeletal: no deformities, ROM normal normal mental status, non-focal exam mood appropriate, affect normal Results - Laboratory Findings CBC and BMP: 07/29/17 04:31 07/29/17 04:31 PT/INR, D-dimer PT 12.0 Seconds (9.4-12.1) 07/25/17 08:59 D-Dimer 3568 ng/mLFEU (0-500) H 07/21/17 04:46 Abnormal lab findings: Abnormal lab results WBC 16.3 K/mcL (4.3-11.1) H 07/29/17 04:31 Neutrophils # 12.8 K/mcL (1.6-8.9) H 07/29/17 04:31 Monocytes # 2.2 K/mcL (0.0-1.3) H 07/29/17 04:31 Nucleated RBCs/100 WBC 0.2 /100 WBC (0) H 07/24/17 05:31 Hypersegmented Neuts Present (Not Present) A 07/23/17 03:38 Toxic Granulation Present (Not Present) A 07/23/17 03:38 Large Platelets Present (Not Present) A 07/23/17 03:38 D-Dimer 3568 ng/mLFEU (0-500) H 07/21/17 04:46 Sodium 132 mEq/L (136-145) L 07/29/17 04:31 Potassium 4.6 mEq/L (3.5-4.5) H 07/29/17 04:31 BUN 57 mg/dL (7-20) H 07/29/17 04:31 Est GFR (Non-Af Amer) 53 (> 60) L 07/29/17 04:31 BUN/Creatinine Ratio 57 (6-26) H 07/29/17 04:31 Glucose 166 mg/dL (70-99) H 07/29/17 04:31 POC Glucose 176 (58-89) H 07/28/17 20:53 Calcium 8.2 mg/dL (8.6-10.8) L 07/29/17 04:31 Lactate Dehydrogenase 535 Units/L (159-327) H 07/21/17 04:46 B-Natriuretic Peptide 121 pg/mL (0-100) H 07/20/17 17:46 Albumin 3.1 g/dL (3.5-5.0) L 07/22/17 04:39 Albumin/Globulin Ratio 0.9 (1.1-2.2) L 07/22/17 04:39 Pleural Appearance Bloody (Clear) A 07/21/17 13:40 Pleural RBC 0.255 M/mcL (0.000-0.002) H 07/21/17 13:40 Pleural Tot Nuc Cell 1292 TNC/mcL (0-1000) H 07/21/17 13:40 - Microbiology Findings Microbiology Findings: Microbiology, Last 48 Hours 07/25/17 13:43 Sputum Culture - Preliminary Sputum Yeast Species - Clinical Findings Intake & Output: Intake & Output 07/28/17 07/29/17 07/29/17 23:59 07:59 15:59 Intake Total 0 / 0 0 / 0 Output Total 150 / 150 50 / 50 Balance -150 / -150 -50 / -50 Weight 67 kg - VTE Documentation of Mechanical Device: Intermittent pneumatic compression device Consult Discharge Plan - Plan Referrals: Dudley Mcdaniel MD [Partnered Physician] - 08/05/17 3:[address] MD [Primary Care Provider] - 08/02/17 10:00 am <Raheem Covington - Last Filed: 07/29/17 16:20> Date of Encounter: 07/29/17 Assessment and Plan (1) Metastatic adenocarcinoma Current Visit: Yes Status: Acute (2) Malignant pleural effusion Current Visit: Yes Status: Acute Objective PUL Vital signs: Last Vital Signs Temp 97.4 F L 07/29/17 07:36 Pulse 87 07/29/17 07:36 Resp 18 07/29/17 07:58 BP 137/59 07/29/17 07:36 Pulse Ox 95 07/29/17 07:58 Results - Laboratory Findings CBC and BMP: 07/29/17 04:31 07/29/17 04:31 PT/INR, D-dimer PT 12.0 Seconds (9.4-12.1) 07/25/17 08:59 D-Dimer 3568 ng/mLFEU (0-500) H 07/21/17 04:46 Abnormal lab findings: Abnormal lab results WBC 16.3 K/mcL (4.3-11.1) H 07/29/17 04:31 Neutrophils # 12.8 K/mcL (1.6-8.9) H 07/29/17 04:31 Monocytes # 2.2 K/mcL (0.0-1.3) H 07/29/17 04:31 Nucleated RBCs/100 WBC 0.2 /100 WBC (0) H 07/24/17 05:31 Hypersegmented Neuts Present (Not Present) A 07/23/17 03:38 Toxic Granulation Present (Not Present) A 07/23/17 03:38 Large Platelets Present (Not Present) A 07/23/17 03:38 D-Dimer 3568 ng/mLFEU (0-500) H 07/21/17 04:46 Sodium 132 mEq/L (136-145) L 07/29/17 04:31 Potassium 4.6 mEq/L (3.5-4.5) H 07/29/17 04:31 BUN 57 mg/dL (7-20) H 07/29/17 04:31 Est GFR (Non-Af Amer) 53 (> 60) L 07/29/17 04:31 BUN/Creatinine Ratio 57 (6-26) H 07/29/17 04:31 Glucose 166 mg/dL (70-99) H 07/29/17 04:31 POC Glucose 176 (58-89) H 07/28/17 20:53 Calcium 8.2 mg/dL (8.6-10.8) L 07/29/17 04:31 Lactate Dehydrogenase 535 Units/L (159-327) H 07/21/17 04:46 B-Natriuretic Peptide 121 pg/mL (0-100) H 07/20/17 17:46 Albumin 3.1 g/dL (3.5-5.0) L 07/22/17 04:39 Albumin/Globulin Ratio 0.9 (1.1-2.2) L 07/22/17 04:39 Pleural Appearance Bloody (Clear) A 07/21/17 13:40 Pleural RBC 0.255 M/mcL (0.000-0.002) H 07/21/17 13:40 Pleural Tot Nuc Cell 1292 TNC/mcL (0-1000) H 07/21/17 13:40 - Microbiology Findings Microbiology Findings: Microbiology, Last 48 Hours 07/25/17 13:43 Sputum Culture - Preliminary Sputum [place] albicans Gram Negative Dimitrios - Clinical Findings Intake & Output: Intake & Output 07/29/17 07/29/17 07/29/17 07:59 15:59 23:59 Intake Total 0 / 0 Output Total 50 / 50 Balance -50 / -50 Weight 67 kg - Attending Attestation I examined this patient and my medical decision-making was reviewed with the Resident Physician. I agree with the documented findings, disposition and treatment plan as described except to the extent set forth below. Patient seen and examined. Labs, radiology, chart personally reviewed. 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 The patient is much more comfortable and discussed with the family at the bedside. Please call for any questions.
[2017-07-29] MEDS: Insulin LISPRO 300 UNITS/3 ML VIAL SQ SCH ×3 (08:20→17:33)
[2017-07-29] MEDS: GuaiFENesin/Dextromethorphan TABLET PO SCH (09:06)
[2017-07-29] MEDS: Lisinopril 20 MG TABLET PO SCH (09:06)
[2017-07-29] MEDS: amLODIPine 5 MG TABLET PO SCH (09:06)
[2017-07-29] MEDS: Diltiazem SR (12hr) 60 MG CAPSULE PO SCH (09:06)
[2017-07-29] MEDS: Sennosides/Docusate Sodium TABLET PO SCH (09:06)
[2017-07-29] MEDS: Dorzolamide/Timolol OPTH 10 ML BOTTLE RIGHT EYE SCH (09:07)
[2017-07-29] MEDS: ALPRAZolam 0.5 MG TABLET PO PRN (09:07)
[2017-07-29] MEDS: Megestrol Acetate 400 MG/10 ML UDC PO SCH (09:07)
[2017-07-29] MEDS ORDERED: Morphine Oral CONC 5 MG/0.25 ML ORAL.SYG PO PRN (09:52)
--- NOTE | 2017-07-29 12:28 | Palliative Progress Note ---
Date of Encounter: 07/29/17 Time of Encounter: 10:50 - Assessment and plan (1) Shortness of breath at rest Current Visit: Yes Status: Acute Assessment and plan: Will increase Roxanol from 5-10 mg to 10-15mg and monitor. Continue oxygen for comfort. (2) Anxiety Current Visit: No Status: Acute Assessment and plan: She is having difficulty swallowing pills, - have liquid Lorazepam concentrate if needed. (3) Goals of care, counseling/discussion Current Visit: Yes Status: Acute Assessment and plan: None of patient's immediate family here at the time of my visit, there are extended family members here. Referral has been called to [facility], who will deliver DME's in am, and nurse will be here to meet with daughter to enroll patient at 1300. Patient will need d/c order in prior to 1300. Will d/ w 2NE team. (4) Acute respiratory failure with hypoxia Current Visit: Yes Status: Acute (5) Malignant pleural effusion Current Visit: Yes Status: Acute (6) Metastatic adenocarcinoma Current Visit: Yes Status: Acute - Time Spent With Patient Total time spent is greater than 50% in coordination of care (as documented) at patient's floor/unit and/or counseling patient: 25 - 35 minutes - Subjective Interval history: Patient awake and alert, sipping on water. 2 family members at bedside. She is complaining of pain "all over". Unable to describe. States Roxanol has only helped slightly. Beginning to have difficult swallowing oral medications. - Constitutional Vitals: Abnormal lab results WBC 16.3 K/mcL (4.3-11.1) H 07/29/17 04:31 Neutrophils # 12.8 K/mcL (1.6-8.9) H 07/29/17 04:31 Monocytes # 2.2 K/mcL (0.0-1.3) H 07/29/17 04:31 Nucleated RBCs/100 WBC 0.2 /100 WBC (0) H 07/24/17 05:31 Hypersegmented Neuts Present (Not Present) A 07/23/17 03:38 Toxic Granulation Present (Not Present) A 07/23/17 03:38 Large Platelets Present (Not Present) A 07/23/17 03:38 D-Dimer 3568 ng/mLFEU (0-500) H 07/21/17 04:46 Sodium 132 mEq/L (136-145) L 07/29/17 04:31 Potassium 4.6 mEq/L (3.5-4.5) H 07/29/17 04:31 BUN 57 mg/dL (7-20) H 07/29/17 04:31 Est GFR (Non-Af Amer) 53 (> 60) L 07/29/17 04:31 BUN/Creatinine Ratio 57 (6-26) H 07/29/17 04:31 Glucose 166 mg/dL (70-99) H 07/29/17 04:31 POC Glucose 176 (58-89) H 07/28/17 20:53 Calcium 8.2 mg/dL (8.6-10.8) L 07/29/17 04:31 Lactate Dehydrogenase 535 Units/L (159-327) H 07/21/17 04:46 B-Natriuretic Peptide 121 pg/mL (0-100) H 07/20/17 17:46 Albumin 3.1 g/dL (3.5-5.0) L 07/22/17 04:39 Albumin/Globulin Ratio 0.9 (1.1-2.2) L 07/22/17 04:39 Pleural Appearance Bloody (Clear) A 07/21/17 13:40 Pleural RBC 0.255 M/mcL (0.000-0.002) H 07/21/17 13:40 Pleural Tot Nuc Cell 1292 TNC/mcL (0-1000) H 07/21/17 13:40 General appearance: Present: mild distress - Respiratory Respiratory exam: Present: decreased breath sounds, CTAB Additional comments: Left pleurx cath intact - Cardiovascular Cardiovascular exam: Present: +S1, +S2 - GI/Abdominal GI/Abdominal exam: Present: normal bowel sounds, soft - Extremities Exam Extremities exam: Present: normal capillary refill, normal inspection - Neurological Exam Neurological exam: Present: alert, oriented X3, strengths equal and symetr throughout Additional comments: generalized weakness - Skin Skin exam: Present: dry, warm Palliative Quality Palliative Quality: Screen for Code Status: Yes, Screen for Goals of Care: Yes, Screen for Pain: Yes, If Pain Regimen Started, Initiate Bowel Regimen: Yes, Screen for Nausea/Vomitting: Yes Code Status: 07/20/17 21:59 Resuscitation Status: Active [RES] Routine Comment: Resuscitation Status: [id number] - Labs CBC & Chem 7: 07/29/17 04:31 07/29/17 04:31 Labs: Laboratory Results - last 24 hr 07/27/17 07/28/17 07/28/17 11:32 16:19 20:53 WBC RBC Hgb Hct MCV MCH MCHC RDW Plt Count MPV Immature Gran % Seg Neutrophils % Lymphocytes % Monocytes % Eosinophils % Basophils % Neutrophils # Lymphocytes # Monocytes # Eosinophils # Basophils # Sodium Potassium Chloride Carbon Dioxide BUN Creatinine Est GFR ( Amer) Est GFR (Non-Af Amer) BUN/Creatinine Ratio Glucose POC Glucose 186 H 195 H 176 H Calculated Osmolality Calcium 07/29/17 07/29/17 04:31 04:31 WBC 16.3 H RBC 4.69 Hgb 13.3 D Hct 39.2 MCV 83.6 MCH 28.4 MCHC 33.9 RDW 13.4 Plt Count 257 MPV 10.1 Immature Gran % 0.7 Seg Neutrophils % 78.4 Lymphocytes % 7.1 Monocytes % 13.6 Eosinophils % 0.1 Basophils % 0.1 Neutrophils # 12.8 H Lymphocytes # 1.2 Monocytes # 2.2 H Eosinophils # 0.0 Basophils # 0.0 Sodium 132 L Potassium 4.6 H Chloride 101 Carbon Dioxide 21 BUN 57 H Creatinine 1.00 Est GFR ( Amer) > 60 Est GFR (Non-Af Amer) 53 L BUN/Creatinine Ratio 57 H Glucose 166 H POC Glucose Calculated Osmolality 294 Calcium 8.2 L - ABG Interpretation ABG results: PT/INR, D-dimer PT 12.0 Seconds (9.4-12.1) 07/25/17 08:59 D-Dimer 3568 ng/mLFEU (0-500) H 07/21/17 04:46 Consult Discharge Plan - Plan Referrals: Dudley Mcdaniel MD [Partnered Physician] - 08/05/17 3:[address] MD [Primary Care Provider] - 08/02/17 10:00 am
[2017-07-29 16:34] VITALS: BP 131/56
[2017-07-30] MEDS: Ipratropium/Albuterol Neb 3 ML IH SCH ×4 (03:48→15:39)
[2017-07-30] MEDS: Morphine Oral CONC 5 MG/0.25 ML ORAL.SYG PO PRN (04:57)
--- NOTE | 2017-07-30 06:44 | Discharge Summary ---
<Sanju Hussein - Last Filed: 07/30/17 15:15> Date of Encounter: 07/30/17 Time of Encounter: 06:44 - Discharge Diagnosis (1) Metastatic adenocarcinoma Priority: Primary Status: Acute Comments: Cytology results for the hemorrhagic bilateral pleural fluid reveal metastatic adenocarcinoma Oncology on board and thinks it's less likely to be breast cancer in origin ( patient has history of breast cancer) and cannot completely rule out lung primary. Patient had left PleurX catheter inserted 07/26/14 and right thoracentesis 07/27. Patient is DNR-CCA-DNI. Palliative care on board for assistance to provide patient comfort. Family expressed a desire for comfort measures at this time. Palliative care arranged home hospice (2) Malignant pleural effusion Priority: Primary Status: Acute Comments: Moderate bilateral pleural effusion on CT chest. Oncology on board and thinks it's less likely to be breast cancer in origin ( patient has history of breast cancer) and cannot completely rule out lung primary. (3) Pleural effusion, bilateral Priority: Primary Status: Acute Comments: Bilateral pleural effusions secondary to metastatic adenocarcinoma of unknown origin See above. (4) Acute respiratory failure with hypoxia Priority: Primary Status: Acute Comments: Secondary to malignant pleural effusion and pneumonia. Patient reports breathing better with removal of pleural fluid. Continue supplemental oxygen. Maintaining saturation above 92%. (5) Pneumonia Priority: Primary Status: Acute Comments: Patient finished 7-day course of antibiotics (ceftriaxone and azithromycin) Qualifiers: Pneumonia type: due to unspecified organism Laterality: bilateral Lung location: unspecified part of lung Qualified Code(s): J18.9 - Pneumonia, unspecified organism (6) Diabetes mellitus Priority: Secondary Status: Chronic Comments: Insulin sliding scale with routine glucose monitoring. Qualifiers: Diabetes mellitus type: type 2 Diabetes mellitus complication status: without complication Diabetes mellitus buttermaker insulin use: without detention use Qualified Code(s): E11.9 - Type 2 diabetes mellitus without complications (7) A-fib Priority: Secondary Status: Chronic Comments: Chronic paroxysmal atrial fibrillation Currently rate-controlled and AV paced Discontinue Cardizem upon discharge Continue Metoprolol Was on Xarelto but that was held on admission secondary to hemoptysis. Qualifiers: Atrial fibrillation type: paroxysmal Qualified Code(s): I48.0 - Paroxysmal atrial fibrillation (8) Hypertension Priority: Secondary Status: Chronic Comments: BP within normal range. Continue current antihypertensive regimen. Qualifiers: Hypertension type: essential hypertension Qualified Code(s): I10 - Essential (primary) hypertension (9) Thoracic aortic aneurysm, without rupture Priority: Secondary Status: Acute Comments: CTA showed a 4.0 x 4.0 cm aneurysm of the thoracic ascending aorta. (10) GIFTY (acute kidney injury) Priority: Secondary Status: Acute Comments: Improved with gentle hydration. Continue to monitor. (11) Constipation Priority: Primary Status: Acute Comments: Last bowel movement 8 days ago. Continue laxatives. Continue to monitor Qualifiers: Constipation type: unspecified constipation type Qualified Code(s): K59.00 - Constipation, unspecified (12) Moderate protein-calorie malnutrition Priority: Secondary Status: Acute Comments: BMI is 25.9 Inadequate PO intake with lack of appetite over the last month, 6% unplanned weight loss over the last month, loss of muscle mass, and loss of subcuticular fat. Continue nutritional supplemention (13) DVT prophylaxis Priority: Primary Status: Acute Comments: Xarelto held for hemoptysis SCDs - Discharge Medications Prescriptions: Hyoscyamine SL [Levsin SL] 0.125 mg SL Q4HR PRN #12 tab.subl PRN Reason: upper airway secretions Bisacodyl [Dulcolax] 10 mg RC DAILY PRN #4 supp.rect PRN Reason: Constipation LORazepam Oral Conc [Ativan Oral Conc] 0.5 - 1 mg PO Q4H PRN #30 mls PRN Reason: Anxiety Morphine Oral CONC [Roxanol] 0.5 - 1 ml PO Q1H PRN #30 ml PRN Reason: pain/shortness of breath Sennosides [Senokot] 8.6 mg PO BID #8 tablet Home Medications: ALPRAZolam [Xanax 0.5 MG Tablet] 0.5 mg PO BID PRN 07/24/16 [History] Brimonidine 0.2% [Alphagan] 1 drop BOTH EYES BID 07/24/16 [History] Denosumab [Prolia (For Outpatient Infusion)] 60 mg SQ [id number] 07/24/16 [History ] Omeprazole 20 mg PO DAILY PRN 07/24/16 [History] Potassium Chloride [Klor-Con] 20 meq PO DAILY 07/24/16 [History] Rivaroxaban [Xarelto] 20 mg PO QPM 07/24/16 [History] hydroCHLOROthiazide [Hydrochlorothiazide] 25 mg PO DAILY 07/24/16 [History] Dorzolamide/Timolol [Cosopt] 1 drop OP BID 07/20/17 [History] Latanoprost [Xalatan] 1 drop OP HS 07/20/17 [History] Promethazine/Phenyleph/Codeine [Promethazine Vc-Codeine Syrup] 5 ml PO Q6H PRN 07/20/17 [History] Acetaminophen [Tylenol] 650 mg PO Q6HR PRN tablet 07/30/17 [Rx] Bisacodyl [Dulcolax] 10 mg RC DAILY PRN #4 supp.rect 07/30/17 [Rx] GuaiFENesin/Dextromethorphan [Mucinex Dm] 1 each PO BID tab.er.12h 07/30/17 [Rx ] Hyoscyamine SL [Levsin SL] 0.125 mg SL Q4HR PRN #12 tab.subl 07/30/17 [Rx] Insulin LISPRO [HumaLOG] 0 units SQ HS vial 07/30/17 [Rx] Insulin LISPRO [HumaLOG] 0 units SQ TIDAC vial 07/30/17 [Rx] Ipratropium/Albuterol Neb [Duoneb] 3 ml IH [id number] inhsol 07/30/17 [Rx] LORazepam Oral Conc [Ativan Oral Conc] 0.5 - 1 mg PO Q4H PRN #30 mls 07/30/17 [ Rx] LORazepam Oral Conc [Ativan Oral Conc] 0.5 mg SL Q4H PRN #0 mls 07/30/17 [Rx] Megestrol Acetate [Megace] 400 mg PO DAILY udc 07/30/17 [Rx] Metoprolol [Lopressor] 12.5 mg PO BID tablet 07/30/17 [Rx] Morphine Oral CONC [Roxanol] 0.5 - 1 ml PO Q1H PRN #30 ml 07/30/17 [Rx] Polyethylene Glycol 3350 [MiraLAX] 17 gm PO DAILY PRN powd.pack 07/30/17 [Rx] Sennosides [Senokot] 8.6 mg PO BID #8 tablet 07/30/17 [Rx] Sennosides/Docusate Sodium [Senna Plus] 2 each PO BID #0 tablet 07/30/17 [Rx] Allergies/Adverse Reactions: 3 Allergy/AdvReac Type Severity Reaction Status Date / Time aspartame AdvReac Migraine Verified 07/20/17 19:44 Date of admission: 07/20/17 23:32 Primary care physician: Saurabh Lane MD Consults: 07/21/17 10:23 Consult to Interventional Radiology [CONS] Routine Consulting Provider: Radiology [facility]ventional [facility] Reason for Consult: Thora Time Notified: 10:24 Call Completed: Yes 07/22/17 14:00 Consult to Occupational Therapy [CONS] Routine Comment: Evaluate, develop and implement POC Reason for Consult: weakness Consult to Physical Therapy [CONS] Routine Comment: Evaluate, develop and implement POC Reason for Consult: weakness 07/23/17 08:47 Consult to Oncology [CONS] Routine Consulting Provider: Oncology [facility] [place] Reason for Consult: Metastatic adenocarcinoma cells found in pleural fluid. Hx of Left Breast cancer with mastectomy in 2013. Time Notified: 08:48 Call Completed: Yes 07/23/17 10:35 Consult to Speech Therapy [CONS] Routine Comment: Evaluate, develop and implement POC Reason for Consult: Reported dysphagia Time Notified: 10:35 Call Completed: No 07/24/17 09:06 Consult to Pulmonology [CONS] Routine Consulting Provider: [facility] Reason for Consult: Malignant pleural effusion, hemoptysis Time Notified: 09:00 Call Completed: Yes 07/26/17 08:56 Consult to Palliative Care [CONS] Routine Comment: Consulting Provider: [facility]iative [facility] Reason for Consult: Pleural effusion secondary to possible primary lung malignancy. Appreciate palliative care. Call Completed: Yes Discharging clinician: Sanju Hussein Anticipated date of discharge: 07/30/17 - Patient Status Disposition: Hospice - Home Condition: Critical Functional capacity at discharge: bed bound Overall status at discharge: patient is not back to baseline - Discharge Instructions Follow Up With: Dudley Mcdaniel MD [Partnered Physician] - 08/05/17 3:[address] MD [Primary Care Provider] - 08/02/17 10:00 am - Diet and Activity Activity: resume usual activities as tolerated, wear oxygen at all times Diet: regular diet Hospital course: Ms. Avina is a 81 year old female past history of hypertension, diabetes, A. 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 The patient was diagnosed in 09/2013 with left breast cancer and had a lumpectomy in 10/2013 followed by radiation therapy. She had a productive cough with blood-tinged sputum. Her daughter states that her SPO2 has been ranging around 93-94% at rest and drops down into the upper 80s on exertion. In the ER workup revealed BNP 121 chest x-ray suggestive of CHF, and bilateral pleural effusion right more than left. CT scan showed bilateral effusions with lower lobe consolidation, precarinal LN and Hilar LN. Left thoracentesis yielded 800 mL on 07/20/2017 and cytology was positive for metastatic adenocarcinoma. Oncology evaluated the patient and Pulmonary was consulted and left Pleurex catheter was placed for Malignant pleural effusion. Oncology explained that in view of her poor performance status , at this time chemotherapy probably would be detrimental and immunotherapy with pembrolizumab could be an alternative. Family refused bronchoscopy or immunotherapy at this time and switched code status to comfort care only. Pulmonlogy discussed with the family how to drain Pleurx catheter. Palliative care was consulted and set up home hospice upon discharge. - Time Spent with Patient Total time spent providing and/or coordinating discharge services: - Constitutional Vitals: Temp Pulse Resp BP Pulse Ox 97.9 F 80 20 131/56 94 07/29/17 16:33 07/29/17 16:33 07/29/17 16:33 07/29/17 16:33 07/29/17 16:33 General appearance: Present: cooperative, A&O X 3, pleasant, no acute distress, underweight, answers questions appropriately - Head Head exam: Present: atraumatic, normal inspection, normocephalic - Eye Eye exam: Present: EOMI, PERRL - ENT ENT exam: Present: mucous membranes dry, normal oropharynx - Neck Neck exam general surgery: Present: normal inspection, supple. Absent: tenderness - Respiratory Respiratory exam: Present: decreased breath sounds. Absent: rales, wheezes Additional comments: Pleurx catheter in place, dressing C/D/I - Cardiovascular Cardiovascular exam: Present: RRR, +S1, +S2 - GI/Abdominal GI/Abdominal exam: Present: normal bowel sounds, soft. Absent: distended, tenderness - Additional comments: no miranda - Extremities Exam Extremities exam: Present: warm. Absent: pedal edema, tenderness Additional comments: severe loss of subcuticular fat - Back Exam Back exam: Present: normal inspection. Absent: tenderness Additional comments: Pleurex catheter in place - Neurological Exam Neurological exam: Present: alert, no focal deficits. Absent: speech deficit - Psychiatric Psychiatric exam: Present: depressed, flat affect - Skin Skin exam: Present: dry, warm Additional comments: bandage C/D/I over pleurex catheter - VTE Documentation of Mechanical Device: Intermittent pneumatic compression device <Maxwell Spaulding P - Last Filed: 07/30/17 17:44> Date of Encounter: 07/30/17 Date of admission: 07/20/17 23:32 Primary care physician: aSurabh Lane MD Consults: 07/21/17 10:23 Consult to Interventional Radiology [CONS] Routine Consulting Provider: Radiology [facility] Reason for Consult: Thora Time Notified: 10:24 Call Completed: Yes 07/22/17 14:00 Consult to Occupational Therapy [CONS] Routine Comment: Evaluate, develop and implement POC Reason for Consult: weakness Consult to Physical Therapy [CONS] Routine Comment: Evaluate, develop and implement POC Reason for Consult: weakness 07/23/17 08:47 Consult to Oncology [CONS] Routine Consulting Provider: [facility]cology [facility] [place] Reason for Consult: Metastatic adenocarcinoma cells found in pleural fluid. Hx of Left Breast cancer with mastectomy in 2013. Time Notified: 08:48 Call Completed: Yes 07/23/17 10:35 Consult to Speech Therapy [CONS] Routine Comment: Evaluate, develop and implement POC Reason for Consult: Reported dysphagia Time Notified: 10:35 Call Completed: No 07/24/17 09:06 Consult to Pulmonology [CONS] Routine Consulting Provider: [facility]m [facility] Reason for Consult: Malignant pleural effusion, hemoptysis Time Notified: 09:00 Call Completed: Yes 07/26/17 08:56 Consult to Palliative Care [CONS] Routine Comment: Consulting Provider: [facility] [place] Reason for Consult: Pleural effusion secondary to possible primary lung malignancy. Appreciate palliative care. Call Completed: Yes Hospital course: Ms. Avina is a 81 year old female - Time Spent with Patient Total time spent providing and/or coordinating discharge services: - Constitutional Vitals: Temp Pulse Resp BP Pulse Ox 97.9 F 80 20 131/56 94 07/29/17 16:33 07/29/17 16:33 07/29/17 16:33 07/29/17 16:33 07/29/17 16:33 - Attending Attestation I examined this patient and my medical decision-making was reviewed with the Resident Physician. I agree with the documented findings, disposition and treatment plan as described except to the extent set forth below.
[2017-07-30] MEDS: Insulin LISPRO 300 UNITS/3 ML VIAL SQ SCH ×2 (06:55→09:49)
[2017-07-30] MEDS: Diltiazem SR (12hr) 60 MG CAPSULE PO SCH ×2 (06:55→09:50)
[2017-07-30] MEDS: Dorzolamide/Timolol OPTH 10 ML BOTTLE RIGHT EYE SCH (06:55)
[2017-07-30] MEDS: Latanoprost 2.5 ML BOTTLE RIGHT EYE SCH (06:56)
[2017-07-30] MEDS: Sennosides/Docusate Sodium TABLET PO SCH ×2 (06:56→09:51)
[2017-07-30] MEDS: GuaiFENesin/Dextromethorphan TABLET PO SCH ×2 (06:56→09:51)
[2017-07-30] MEDS: amLODIPine 5 MG TABLET PO SCH ×2 (06:56→09:51)
--- NOTE | 2017-07-30 09:48 | Pulmonology Progress Note ---
<Alexandro Vences - Last Filed: 07/30/17 09:46> Date of Encounter: 07/30/17 Time of Encounter: 09:00 Assessment and Plan (1) Metastatic adenocarcinoma Current Visit: Yes Status: Acute Patient will likely go home today on hospice Follow up as outpatient for possible R pleurx catheter (2) Malignant pleural effusion Current Visit: Yes Status: Acute The patient is resting comfortably and breathing more easily. She is oxygenating and ventilating appropriately, and she does not appear to be in any acute distress. She may require insertion of a pleurx catheter in the right lung as an outpatient to combat frequent recurrence of malignant effusion. Subjective Principal diagnosis: Metastatic Adenocarcinoma Interval history: Ms. Avina is resenting in bed at time of examination. She says that she's feeling okay overall. Family is present in the room, mentions that she had no acute problems overnight. She appears to be breathing appropriately. Objective PUL Vital signs: Last Vital Signs Temp 97.9 F 07/29/17 16:33 Pulse 80 07/29/17 16:33 Resp 20 07/29/17 16:33 BP 131/56 07/29/17 16:33 Pulse Ox 94 07/29/17 16:33 General appearance: no acute distress, asleep Eyes: nonicteric ENT: oropharynx moist Neck: supple Effort: normal Auscultation: bilateral: clear, diminished breath sounds Cardiovascular: regular rate and rhythm Gastrointestinal: normoactive bowel sounds, non-distended Integumentary: normal Extremities: no cyanosis, no edema, no clubbing Musculoskeletal: no deformities, ROM normal normal mental status, non-focal exam mood appropriate, affect normal Results - Laboratory Findings CBC and BMP: 07/29/17 04:31 07/29/17 04:31 PT/INR, D-dimer PT 12.0 Seconds (9.4-12.1) 07/25/17 08:59 D-Dimer 3568 ng/mLFEU (0-500) H 07/21/17 04:46 Abnormal lab findings: Abnormal lab results WBC 16.3 K/mcL (4.3-11.1) H 07/29/17 04:31 Neutrophils # 12.8 K/mcL (1.6-8.9) H 07/29/17 04:31 Monocytes # 2.2 K/mcL (0.0-1.3) H 07/29/17 04:31 Nucleated RBCs/100 WBC 0.2 /100 WBC (0) H 07/24/17 05:31 Hypersegmented Neuts Present (Not Present) A 07/23/17 03:38 Toxic Granulation Present (Not Present) A 07/23/17 03:38 Large Platelets Present (Not Present) A 07/23/17 03:38 D-Dimer 3568 ng/mLFEU (0-500) H 07/21/17 04:46 Sodium 132 mEq/L (136-145) L 07/29/17 04:31 Potassium 4.6 mEq/L (3.5-4.5) H 07/29/17 04:31 BUN 57 mg/dL (7-20) H 07/29/17 04:31 Est GFR (Non-Af Amer) 53 (> 60) L 07/29/17 04:31 BUN/Creatinine Ratio 57 (6-26) H 07/29/17 04:31 Glucose 166 mg/dL (70-99) H 07/29/17 04:31 POC Glucose 122 (58-89) H 07/29/17 16:32 Calcium 8.2 mg/dL (8.6-10.8) L 07/29/17 04:31 Lactate Dehydrogenase 535 Units/L (159-327) H 07/21/17 04:46 B-Natriuretic Peptide 121 pg/mL (0-100) H 07/20/17 17:46 Albumin 3.1 g/dL (3.5-5.0) L 07/22/17 04:39 Albumin/Globulin Ratio 0.9 (1.1-2.2) L 07/22/17 04:39 Pleural Appearance Bloody (Clear) A 07/21/17 13:40 Pleural RBC 0.255 M/mcL (0.000-0.002) H 07/21/17 13:40 Pleural Tot Nuc Cell 1292 TNC/mcL (0-1000) H 07/21/17 13:40 - Microbiology Findings Microbiology Findings: Microbiology, Last 48 Hours 07/25/17 13:43 Sputum Culture - Preliminary Sputum [place] albicans Gram Negative Dimitrios - VTE Documentation of Mechanical Device: Intermittent pneumatic compression device Consult Discharge Plan - Plan Referrals: Dudley Mcdaniel MD [Partnered Physician] - 08/05/17 3:[address] MD [Primary Care Provider] - 08/02/17 10:00 am Prescriptions: Hyoscyamine SL [Levsin SL] 0.125 mg SL Q4HR PRN #12 tab.subl PRN Reason: upper airway secretions Bisacodyl [Dulcolax] 10 mg RC DAILY PRN #4 supp.rect PRN Reason: Constipation LORazepam Oral Conc [Ativan Oral Conc] 0.5 - 1 mg PO Q4H PRN #30 mls PRN Reason: Anxiety Morphine Oral CONC [Roxanol] 0.5 - 1 ml PO Q1H PRN #30 ml PRN Reason: pain/shortness of breath Sennosides [Senokot] 8.6 mg PO BID #8 tablet <Raheem Covington - Last Filed: 07/30/17 10:49> Date of Encounter: 07/30/17 Assessment and Plan (1) Metastatic adenocarcinoma Current Visit: Yes Status: Acute (2) Malignant pleural effusion Current Visit: Yes Status: Acute Objective PUL Vital signs: Last Vital Signs Temp 97.9 F 07/29/17 16:33 Pulse 80 07/29/17 16:33 Resp 20 07/29/17 16:33 BP 131/56 07/29/17 16:33 Pulse Ox 94 07/29/17 16:33 Results - Laboratory Findings CBC and BMP: 07/29/17 04:31 07/29/17 04:31 PT/INR, D-dimer PT 12.0 Seconds (9.4-12.1) 07/25/17 08:59 D-Dimer 3568 ng/mLFEU (0-500) H 07/21/17 04:46 Abnormal lab findings: Abnormal lab results WBC 16.3 K/mcL (4.3-11.1) H 07/29/17 04:31 Neutrophils # 12.8 K/mcL (1.6-8.9) H 07/29/17 04:31 Monocytes # 2.2 K/mcL (0.0-1.3) H 07/29/17 04:31 Nucleated RBCs/100 WBC 0.2 /100 WBC (0) H 07/24/17 05:31 Hypersegmented Neuts Present (Not Present) A 07/23/17 03:38 Toxic Granulation Present (Not Present) A 07/23/17 03:38 Large Platelets Present (Not Present) A 07/23/17 03:38 D-Dimer 3568 ng/mLFEU (0-500) H 07/21/17 04:46 Sodium 132 mEq/L (136-145) L 07/29/17 04:31 Potassium 4.6 mEq/L (3.5-4.5) H 07/29/17 04:31 BUN 57 mg/dL (7-20) H 07/29/17 04:31 Est GFR (Non-Af Amer) 53 (> 60) L 07/29/17 04:31 BUN/Creatinine Ratio 57 (6-26) H 07/29/17 04:31 Glucose 166 mg/dL (70-99) H 07/29/17 04:31 POC Glucose 122 (58-89) H 07/29/17 16:32 Calcium 8.2 mg/dL (8.6-10.8) L 07/29/17 04:31 Lactate Dehydrogenase 535 Units/L (159-327) H 07/21/17 04:46 B-Natriuretic Peptide 121 pg/mL (0-100) H 07/20/17 17:46 Albumin 3.1 g/dL (3.5-5.0) L 07/22/17 04:39 Albumin/Globulin Ratio 0.9 (1.1-2.2) L 07/22/17 04:39 Pleural Appearance Bloody (Clear) A 07/21/17 13:40 Pleural RBC 0.255 M/mcL (0.000-0.002) H 07/21/17 13:40 Pleural Tot Nuc Cell 1292 TNC/mcL (0-1000) H 07/21/17 13:40 - Microbiology Findings Microbiology Findings: Microbiology, Last 48 Hours 07/25/17 13:43 Sputum Culture - Preliminary Sputum [place] albicans Gram Negative Dimitrios - Attending Attestation I examined this patient and my medical decision-making was reviewed with the Resident Physician. I agree with the documented findings, disposition and treatment plan as described except to the extent set forth below. Patient seen and examined. Labs, radiology, chart personally reviewed. 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 Patient not in any distress and discussed with the family about Pleurx catheter drainage and explained to them how to drain it.
[2017-07-30] MEDS: Megestrol Acetate 400 MG/10 ML UDC PO SCH (09:50)
[2017-07-30] MEDS: Lisinopril 20 MG TABLET PO SCH (09:51)
--- NOTE | 2017-07-30 10:22 | Physician Discharge Referral ---
<Sanju Hussein - Last Filed: 07/30/17 10:20> Home Health/Hosp Referral Info Transfer to: Hospice Attending Provider: Maxwell Spaulding Provider in Charge Post Discharge: PCP - Diagnosis (1) Metastatic adenocarcinoma Priority: Primary Status: Acute (2) Malignant pleural effusion Priority: Primary Status: Acute (3) Pleural effusion, bilateral Priority: Primary Status: Acute (4) Acute respiratory failure with hypoxia Priority: Primary Status: Acute (5) Pneumonia Priority: Primary Status: Acute (6) Diabetes mellitus Priority: Secondary Status: Chronic (7) A-fib Priority: Secondary Status: Chronic (8) Hypertension Priority: Secondary Status: Chronic (9) Thoracic aortic aneurysm, without rupture Priority: Secondary Status: Acute (10) GIFTY (acute kidney injury) Priority: Secondary Status: Acute (11) Constipation Priority: Primary Status: Acute (12) Moderate protein-calorie malnutrition Priority: Primary Status: Acute (13) DVT prophylaxis Priority: Primary Status: Acute - Respiratory Orders Oxygen / L per min (2L) Smoking Cessation: Smoking cessation has been advised. For more information, call the [employer] Quit Line at 2-132-CGUN-NOW. - Diet/Nutrition Diet/Nutrition Orders: Cardiac (Diabetic, Ensure HP BID) - Activity Activity Orders: Bedrest - Services Needed Following services are medically necessary services: Nursing (Hospice) - Transfer Medications Prescriptions: Hyoscyamine SL [Levsin SL] 0.125 mg SL Q4HR PRN #12 tab.subl PRN Reason: upper airway secretions Bisacodyl [Dulcolax] 10 mg RC DAILY PRN #4 supp.rect PRN Reason: Constipation LORazepam Oral Conc [Ativan Oral Conc] 0.5 - 1 mg PO Q4H PRN #30 mls PRN Reason: Anxiety Morphine Oral CONC [Roxanol] 0.5 - 1 ml PO Q1H PRN #30 ml PRN Reason: pain/shortness of breath Sennosides [Senokot] 8.6 mg PO BID #8 tablet Home Medications: ALPRAZolam [Xanax 0.5 MG Tablet] 0.5 mg PO BID PRN 07/24/16 [History] Brimonidine 0.2% [Alphagan] 1 drop BOTH EYES BID 07/24/16 [History] Denosumab [Prolia (For Outpatient Infusion)] 60 mg SQ [id number] 07/24/16 [History ] Omeprazole 20 mg PO DAILY PRN 07/24/16 [History] Potassium Chloride [Klor-Con] 20 meq PO DAILY 07/24/16 [History] Rivaroxaban [Xarelto] 20 mg PO QPM 07/24/16 [History] hydroCHLOROthiazide [Hydrochlorothiazide] 25 mg PO DAILY 07/24/16 [History] Dorzolamide/Timolol [Cosopt] 1 drop OP BID 07/20/17 [History] Latanoprost [Xalatan] 1 drop OP HS 07/20/17 [History] Promethazine/Phenyleph/Codeine [Promethazine Vc-Codeine Syrup] 5 ml PO Q6H PRN 07/20/17 [History] Acetaminophen [Tylenol] 650 mg PO Q6HR PRN tablet 07/30/17 [Rx] Bisacodyl [Dulcolax] 10 mg RC DAILY PRN #4 supp.rect 07/30/17 [Rx] GuaiFENesin/Dextromethorphan [Mucinex Dm] 1 each PO BID tab.er.12h 07/30/17 [Rx ] Hyoscyamine SL [Levsin SL] 0.125 mg SL Q4HR PRN #12 tab.subl 07/30/17 [Rx] Insulin LISPRO [HumaLOG] 0 units SQ HS vial 07/30/17 [Rx] Insulin LISPRO [HumaLOG] 0 units SQ TIDAC vial 07/30/17 [Rx] Ipratropium/Albuterol Neb [Duoneb] 3 ml IH [id number] inhsol 07/30/17 [Rx] LORazepam Oral Conc [Ativan Oral Conc] 0.5 - 1 mg PO Q4H PRN #30 mls 07/30/17 [ Rx] LORazepam Oral Conc [Ativan Oral Conc] 0.5 mg SL Q4H PRN #0 mls 07/30/17 [Rx] Megestrol Acetate [Megace] 400 mg PO DAILY udc 07/30/17 [Rx] Metoprolol [Lopressor] 12.5 mg PO BID tablet 07/30/17 [Rx] Morphine Oral CONC [Roxanol] 0.5 - 1 ml PO Q1H PRN #30 ml 07/30/17 [Rx] Polyethylene Glycol 3350 [MiraLAX] 17 gm PO DAILY PRN powd.pack 07/30/17 [Rx] Sennosides [Senokot] 8.6 mg PO BID #8 tablet 07/30/17 [Rx] Sennosides/Docusate Sodium [Senna Plus] 2 each PO BID #0 tablet 07/30/17 [Rx] Allergies/Adverse Reactions: 3 Allergy/AdvReac Type Severity Reaction Status Date / Time aspartame AdvReac Migraine Verified 07/20/17 19:44 Certification: Further, I certify that my clinical findings support that this patient is homebound (i.e. absences from home require considerable and taxing effort and are for medical reasons or voodoo services or infrequently or short duration when for other reasons) because: Homebound Reason: Absences from home are contraindicated except to recieve medical care, Leaving home requires considerable and taxing effort due to condition, Severity of cardiac or pulmonary status limits activity tolerance Attestation: My signature below is to certify that this patient is under my care and that I, or nurse practitioner, or a physician's program support assistant working with me, has a face-to -face encounter with this patient. <Maxwell Spaulding P - Last Filed: 07/30/17 17:45> - Respiratory Orders Smoking Cessation: Smoking cessation has been advised. For more information, call the [place] [employer] Quit Line at 2-521-VTJP-NOW. Certification: Further, I certify that my clinical findings support that this patient is homebound (i.e. absences from home require considerable and taxing effort and are for medical reasons or voodoo services or infrequently or short duration when for other reasons) because: Attestation: My signature below is to certify that this patient is under my care and that I, or nurse practitioner, or a physician's program support assistant working with me, has a face-to -face encounter with this patient.
--- NOTE | 2017-07-30 10:26 | Palliative Progress Note ---
Date of Encounter: 07/30/17 Time of Encounter: 10:25 - Assessment and plan (1) Shortness of breath at rest Current Visit: Yes Status: Acute Assessment and plan: Increased Roxanol dose at 15mg has been helpful. Utilized x3 last 24 hours. (2) Anxiety Current Visit: No Status: Acute (3) Goals of care, counseling/discussion Current Visit: Yes Status: Acute Assessment and plan: Will d/c home later today once enrolled in [facility]. Family to meet hospice nurse at 1300. Prescriptions completed for comfort meds and faxed to pharmacy. (4) Acute respiratory failure with hypoxia Current Visit: Yes Status: Acute (5) Malignant pleural effusion Current Visit: Yes Status: Acute (6) Metastatic adenocarcinoma Current Visit: Yes Status: Acute - Time Spent With Patient Total time spent is greater than 50% in coordination of care (as documented) at patient's floor/unit and/or counseling patient: - Subjective Interval history: Patient awake and alert, sipping on water. Daughter and Daughter n law at bedside. Patient states she is more comfortable today and increased dose of Roxanol was effective. Unable to describe. - Constitutional Vitals: Abnormal lab results WBC 16.3 K/mcL (4.3-11.1) H 07/29/17 04:31 Neutrophils # 12.8 K/mcL (1.6-8.9) H 07/29/17 04:31 Monocytes # 2.2 K/mcL (0.0-1.3) H 07/29/17 04:31 Nucleated RBCs/100 WBC 0.2 /100 WBC (0) H 07/24/17 05:31 Hypersegmented Neuts Present (Not Present) A 07/23/17 03:38 Toxic Granulation Present (Not Present) A 07/23/17 03:38 Large Platelets Present (Not Present) A 07/23/17 03:38 D-Dimer 3568 ng/mLFEU (0-500) H 07/21/17 04:46 Sodium 132 mEq/L (136-145) L 07/29/17 04:31 Potassium 4.6 mEq/L (3.5-4.5) H 07/29/17 04:31 BUN 57 mg/dL (7-20) H 07/29/17 04:31 Est GFR (Non-Af Amer) 53 (> 60) L 07/29/17 04:31 BUN/Creatinine Ratio 57 (6-26) H 07/29/17 04:31 Glucose 166 mg/dL (70-99) H 07/29/17 04:31 POC Glucose 122 (58-89) H 07/29/17 16:32 Calcium 8.2 mg/dL (8.6-10.8) L 07/29/17 04:31 Lactate Dehydrogenase 535 Units/L (159-327) H 07/21/17 04:46 B-Natriuretic Peptide 121 pg/mL (0-100) H 07/20/17 17:46 Albumin 3.1 g/dL (3.5-5.0) L 07/22/17 04:39 Albumin/Globulin Ratio 0.9 (1.1-2.2) L 07/22/17 04:39 Pleural Appearance Bloody (Clear) A 07/21/17 13:40 Pleural RBC 0.255 M/mcL (0.000-0.002) H 07/21/17 13:40 Pleural Tot Nuc Cell 1292 TNC/mcL (0-1000) H 07/21/17 13:40 General appearance: Present: no acute distress - Respiratory Respiratory exam: Present: decreased breath sounds, CTAB Additional comments: Left pleurx intact. - Cardiovascular Cardiovascular exam: Present: +S1, +S2 - GI/Abdominal GI/Abdominal exam: Present: normal bowel sounds, soft - Extremities Exam Extremities exam: Present: normal capillary refill, normal inspection - Neurological Exam Neurological exam: Present: alert Additional comments: generalized weakness - Skin Skin exam: Present: dry, pallor, warm Palliative Quality Palliative Quality: Screen for Code Status: Yes, Screen for Goals of Care: Yes, Screen for Pain: Yes, If Pain Regimen Started, Initiate Bowel Regimen: Yes, Screen for Nausea/Vomitting: Yes Code Status: 07/20/17 21:59 Resuscitation Status: Active [RES] Routine Comment: Resuscitation Status: [id number] - Labs CBC & Chem 7: 07/29/17 04:31 07/29/17 04:31 Labs: Laboratory Results - last 24 hr 07/29/17 16:32 POC Glucose 122 H - ABG Interpretation ABG results: PT/INR, D-dimer PT 12.0 Seconds (9.4-12.1) 07/25/17 08:59 D-Dimer 3568 ng/mLFEU (0-500) H 07/21/17 04:46 Consult Discharge Plan - Plan Referrals: Dudley Mcdaniel MD [Partnered Physician] - 08/05/17 3:[address] MD [Primary Care Provider] - 08/02/17 10:00 am Prescriptions: Hyoscyamine SL [Levsin SL] 0.125 mg SL Q4HR PRN #12 tab.subl PRN Reason: upper airway secretions Bisacodyl [Dulcolax] 10 mg RC DAILY PRN #4 supp.rect PRN Reason: Constipation LORazepam Oral Conc [Ativan Oral Conc] 0.5 - 1 mg PO Q4H PRN #30 mls PRN Reason: Anxiety Morphine Oral CONC [Roxanol] 0.5 - 1 ml PO Q1H PRN #30 ml PRN Reason: pain/shortness of breath Sennosides [Senokot] 8.6 mg PO BID #8 tablet
--- NOTE | 2017-08-03 11:10 | Oncology Inp Progress Note ---
Date of Encounter: 07/29/17 Time of Encounter: 19:00 (1) Breast cancer, left Status: Acute Assessment and plan: Was early stage breast cancer and treated . I doubt the current metastatic carcinoma is from breast Qualifiers: Qualified Code(s): C50.912 - Malignant neoplasm of unspecified site of left female breast; Z17.1 - Estrogen receptor negative status [ER-]; Z17.1 - Estrogen receptor negative status [ER-] (2) Metastatic adenocarcinoma Status: Acute Assessment and plan: Metastatic adenocarcinoma in the pleural fluid. FABRICE 3 negative, ammaglobulin negative and ER/AZ negative. Less likely to be breast cancer in origin. CK 7 positive but TTF-1 negative. Most likely lung primary. Persistent left lower lobe infiltrate for more than a month which could be primary lung cancer. Bronchoscopy not done to patient's poor general condition She had bilateral pleural effusions drained in both of them revealed adenocarcinoma. She has a left Pleurx catheter. Per pulmonology right Pleurx catheter may be done as an outpatient Patient and family decided on hospice and DNR CC which is reasonable. If she gets stronger I can evaluate her in the office and try immunotherapy- like nivolumab. Oncology: Subj Interval history: Shortness of breath marginally better. Deconditioning. Fatigue - Constitutional Exam: GENERAL: Drowsy and sleeping. Mental Status: Affect appropriate for circumstances HEENT: Sclerae anicteric. No mucositis or thrush. No other oral or pharyngeal lesions or erythema. Skin: No rashes or petechiae. No evidence of skin malignancy Lymph nodes: No cervical, supraclavicular, axillary, or inguinal adenopathy. Lungs: Air entry decreased both bases significantly Cardiovascular: Regular rate and rhythm. No skipped beats Abdomen: Soft, nontender; no organomegaly or masses palpable. Extremities: No edema. No calf swelling or tenderness. No joint deformity. Neurologic: Alert, cranial nerves II-XII intact; normal gait; no focal weakness or sensory abnormalities Oncology: Obj Data - Labs CBC & Chem 7: 07/29/17 04:31 07/29/17 04:31 - ABG Interpretation ABG results: PT/INR, D-dimer PT 12.0 Seconds (9.4-12.1) 07/25/17 08:59 D-Dimer 3568 ng/mLFEU (0-500) H 07/21/17 04:46 Consult Discharge Plan - Plan Referrals: Dudley Mcdaniel MD [Partnered Physician] - 08/05/17 3:[address] MD [Primary Care Provider] - 08/02/17 10:00 am Prescriptions: Hyoscyamine SL [Levsin SL] 0.125 mg SL Q4HR PRN #12 tab.subl PRN Reason: upper airway secretions Bisacodyl [Dulcolax] 10 mg RC DAILY PRN #4 supp.rect PRN Reason: Constipation LORazepam Oral Conc [Ativan Oral Conc] 0.5 - 1 mg PO Q4H PRN #30 mls PRN Reason: Anxiety Morphine Oral CONC [Roxanol] 0.5 - 1 ml PO Q1H PRN #30 ml PRN Reason: pain/shortness of breath Sennosides [Senokot] 8.6 mg PO BID #8 tablet
== END 2017-07-30 16:45 | disposition hospice, home (50) | DRG 180 ==
LOC: EMEROO 17:07 → 2NENU 17:07 → SUATTDRO 23:32
PROVIDERS: ADMIT Internal Medicine; ATTEND Internal Medicine